=== PATIENT | male | born 1945 | race Caucasian/White ===

== ENCOUNTER 2019-03-22 12:51 | Inpatient (IN) | payer OTHER, BC ==
[2019-03-22 13:47] LABS: Basophils % 0.4 % (0-1.3); Hematocrit 44.2 % (39.6-49.0); MPV 8.8 fL (7.6-11.3); RBC Red Blood Cell Count 4.83 M/uL (4.33-5.43)
[2019-03-22 14:06] LABS: Albumin 3.7 g/dL (3.4-5.0); Bilirubin Direct 0.3 mg/dL (0-0.2); Bilirubin Total 1.1 mg/dL (0.2-1.0); Magnesium 1.6 mg/dL (1.8-2.4); Potassium 3.6 mmol/L (3.5-5.1); Protein, Total 6.6 g/dL (6.4-8.2)
--- NOTE | 2019-03-22 15:20 | RAD REPORT ---
EXAM DESCRIPTION: CTAbdomen Pelvis W Contrast - 03/22/2019 2:53 pm CLINICAL HISTORY: Abdominal pain. ABD PAIN COMPARISON: No comparisons TECHNIQUE: Biphasic CT imaging of the abdomen and pelvis was performed with 100 ml non-ionic IV cont rast. All CT scans are performed using dose optimization technique as appropriate and may include automated exposure control or mA/KV adjustment according to patient size. FINDINGS: The lung bases are emphysematous. The liver demonstrates no focal mass or biliary dilatation. The, pancreas, adrenal glands are normal. Small left renal cysts are present with a tiny stone in the inferior calyx left kidney. Moderate rig ht hydronephrosis and hydroureter is seen without obstructing calculus present. The appendix appears inflamed and thickened measuring up to 12 mm compatible with acute appendicitis. Sigmoid diverticulosis is present without diverticulitis. No bowel obstruction. Infrarenal abdominal aortic aneurysm measuring 4.5 cm is noted with moderate mural thrombus. No evidence of significant l ymphadenopathy. No suspicious bony findings. IMPRESSION: Acute appendicitis.
[2019-03-22] MEDS ORDERED: PIPER/TAZO/NS 3.375gm 3.375 GM/100 ML BAG ONE (16:22)
[2019-03-22] MEDS ORDERED: MORPHINE 2 MG/ML SYR ONE (16:22)
--- NOTE | 2019-03-22 16:43 | EDPHYS ---
Physician Documentation [facility] Name: Jasbir Flores Age: 73 yrs Sex: Male : 1945 Arrival Date: 03/22/2019 Time: 12:54 Bed 17 Private MD: ED Physician Eder Tripp HPI: 03/22 13:05 This 73 yrs old Male presents to ER via EMS with complaints of Abdominal Pain.cp 13:05 Associated signs and symptoms: Pertinent positives: diarrhea yesterday, Pertinent cp negatives: blood in stools, constipation, dysuria, fever, shortness of breath, testicular pain, vomiting. 13:05 The patient presents with abdominal pain in the lower abdomen. Onset: The cp symptoms/episode began/occurred yesterday. Modifying factors: the symptoms are aggravated by pressure. Severity of pain: in the emergency department the pain has improved moderately. Historical: - Allergies: 12:58 No Known Allergies; ph - Home Meds: 12:58 amlodipine 5 mg tab 1 tab once daily [Active]; Advair Diskus Inhl [Active]; ph glycopyrrolate inhalation [Active]; tamsulosin 0.4 mg Oral cp24 1 cap once daily [Active]; rosuvastatin 10 mg Oral tab 1 tab once daily [Active]; - PMHx: 12:58 Emphysema; Hyperlipidemia; Hypertension; ph - Immunization history:: Adult Immunizations up to date. - Social history:: Smoking status: Patient/guardian denies using tobacco. - Ebola Screening: : No symptoms or risks identified at this time. ROS: 13:15 Constitutional: Negative for body aches, chills, fever, poor PO intake. cp 13:15 Eyes: Negative for injury, pain, redness, and discharge. cp 13:15 ENT: Negative for drainage from ear(s), ear pain, sore throat, difficulty swallowing, difficulty handling secretions. 13:15 Cardiovascular: Negative for chest pain, edema, palpitations. 13:15 Respiratory: Negative for cough, shortness of breath, wheezing. 13:15 Abdomen/GI: Positive for abdominal pain, nausea, Negative for vomiting, diarrhea, constipation, black/tarry stool, rectal bleeding. 13:15 Back: Negative for pain at rest, pain with movement, radiated pain. 13:15 : Negative for urinary symptoms, testicular pain 13:15 Skin: Negative for cellulitis, rash. 13:15 Neuro: Negative for altered mental status, dizziness, headache, syncope, weakness. 13:15 All other systems are negative. Exam: 13:20 Constitutional: The patient appears in no acute distress, alert, awake, cp non-diaphoretic, non-toxic, well developed, well nourished. 13:20 Head/Face: Normocephalic, atraumatic. cp 13:20 Eyes: Periorbital structures: appear normal, Conjunctiva: normal, no exudate, no injection, Sclera: no appreciated abnormality, Lids and lashes: appear normal, bilaterally. 13:20 ENT: External ear(s): are unremarkable, Nose: is normal, Mouth: Lips: moist, Oral mucosa: pink and intact, moist, Posterior pharynx: is normal, airway is patent, no erythema, no exudate. 13:20 Chest/axilla: Inspection: normal, Palpation: is normal, no crepitus, no tenderness. 13:20 Cardiovascular: Rate: normal, Rhythm: regular, Edema: is not appreciated, JVD: is not appreciated. 13:20 Respiratory: the patient does not display signs of respiratory distress, Respirations: normal, no use of accessory muscles, no retractions, no splinting, no tachypnea, labored breathing, is not present, Breath sounds: are clear throughout, no decreased breath sounds, no stridor, no wheezing. 13:20 Abdomen/GI: Inspection: distension, that is mild, Bowel sounds: active, all quadrants, Palpation: soft, in all quadrants, moderate abdominal tenderness, in the right lower quadrant, rebound tenderness, is not appreciated, involuntary guarding, is elicited in the right lower quadrant. 13:20 Back: pain, is absent, ROM is normal. 13:20 Skin: cellulitis, is not appreciated, no rash present. 13:20 Neuro: Orientation: to person, place \T\ time. Mentation: is normal, Motor: moves all fours. 16:55 ECG was reviewed by the Attending Physician. cp Vital Signs: 12:56 BP 125 / 70; Pulse 96; Resp 18; Temp 99.9(O); Pulse Ox 93% on R/A; Weight 74.84 kg; ph Height 5 ft. 9 in. (175.26 cm); Pain 0/10; 14:06 BP 122 / 69; Pulse 91; Resp 17; Pulse Ox 99% ; bp 15:40 BP 112 / 54; Pulse 90; Resp 17; Pulse Ox 100% ; bp 16:00 BP 113 / 62; Pulse 86; Resp 16; Pulse Ox 100% ; bp 17:00 BP 109 / 75; Pulse 80; Resp 17; Temp 99.5; Pulse Ox 98% ; bp 12:56 Body Mass Index 24.37 (74.84 kg, 175.26 cm) ph MDM: 12:58 Patient medically screened. cp 13:30 Differential diagnosis: appendicitis, cholecystitis, Cholelithiasis, diverticulitis, cp pancreatitis, Ureterolithiasis, urinary tract infection, colitis. 15:45 Data reviewed: vital signs, nurses notes, lab test result(s), radiologic studies, CT cp scan. 15:45 Counseling: I had a detailed discussion with the patient and/or guardian regarding: the cp historical points, exam findings, and any diagnostic results supporting the discharge/admit diagnosis, lab results, radiology results. 15:47 Physician consultation: Jasbir Pickett MD was called at 15:47, regarding admission, to cp the operating room, patient's condition, left message on voicemail. 16:21 Physician consultation: Jasbir Pickett MD was contacted at 16:21, regarding patient's cp condition, would like admission per Dr. Kaiden Molina. 03/22 12:58 Order name: Basic Metabolic Panel; Complete Time: 15:33 cp 03/22 15:38 Interpretation: Normal except: GFR 68. 03/22 12:58 Order name: CBC with Diff; Complete Time: 15:33 cp 03/22 15:39 Interpretation: Normal except: WBC 13.8; JJ% 83.5; LYM% 7.0; NEUT A 11.5. 03/22 12:58 Order name: Creatinine for Radiology; Complete Time: 15:33 cp 03/22 12:58 Order name: Hepatic Function; Complete Time: 15:33 cp 03/22 15:39 Interpretation: Normal except: AST 11; BILIT 1.1; BILID 0.3. cp 03/22 12:58 Order name: Lipase; Complete Time: 15:33 cp 03/22 12:58 Order name: Urine Microscopic Only cp 03/22 12:58 Order name: Magnesium; Complete Time: 15:33 03/22 16:32 Order name: PT-INR 03/22 16:32 Order name: Ptt, Activated 03/22 17:22 Order name: Basic Metabolic Panel [facility]SC 03/22 17:22 Order name: Basic Metabolic Panel [facility] 03/22 17:22 Order name: CBC with Automated Diff [facility]SC 03/22 17:22 Order name: CBC with Automated Diff [facility]SC 03/22 17:22 Order name: Lipase [facility]SC 03/22 12:58 Order name: IV Saline Lock; Complete Time: 13:17 03/22 12:58 Order name: Labs collected and sent; Complete Time: 13:17 03/22 12:58 Order name: CT Abd/Pelvis - PO and IV Contrast; Complete Time: 15:33 03/22 15:33 Interpretation: Report reviewed. 03/22 15:42 Order name: NPO; Complete Time: 15:53 03/22 16:32 Order name: EKG; Complete Time: 16:33 03/22 16:32 Order name: CXR XRAY 03/22 17:15 Order name: CONS Physician Consult [facility] 03/22 17:22 Order name: NPO [facility]SC 03/22 17:22 Order name: Lipase [facility]SC 03/22 17:22 Order name: Liver (Hepatic) Function [facility]SC 03/22 17:22 Order name: Liver (Hepatic) Function [facility] 03/22 16:32 Order name: EKG - Nurse/Tech; Complete Time: 16:36 cp EC:55 Rate is 79 beats/min. Rhythm is regular. VT interval is normal. QRS interval is normal. cp QT interval is normal. T waves are Inverted in leads I, II, III, aVL, aVF, V5, V6. Interpreted by me. Reviewed by me. Administered Medications: 13:20 Drug: NS 0.9% 1000 ml Route: IV; Rate: 100 ml/hr; Site: left antecubital; bp 17:25 Follow up: IV Status: Infusion continued upon admission; IV Intake: 400ml bp 16:05 Drug: Zosyn 3.375 grams Route: IVPB; Infused Over: 60 mins; Site: left antecubital; bp 17:24 Follow up: IV Status: Completed infusion; IV Intake: 100ml bp 16:05 Drug: morphine 2 mg Route: IVP; Site: left antecubital; bp 17:22 Follow up: Response: Pain is decreased bp 17:05 Drug: Magnesium Sulfate 1 grams Route: IVPB; Infused Over: 1 hrs; Site: left bp antecubital; 17:23 Follow up: IV Status: Infusion continued upon admission bp Disposition: 03/22/19 16:42 Hospitalization ordered by Kaiden Molina for Observation. Preliminary diagnosis is Acute appendicitis. - Bed requested for Telemetry/MedSurg (observation). - Status is Observation. bp - Condition is Stable. - Problem is new. - Symptoms have improved. UTI on Admission? No Addendum: 03/27/2019 09:44 Co-signature as Attending Physician, Eder Tripp MD I agree with the assessment and k dr plan of care. Signatures: Dispatcher [employer] Albina Marrero RN RN dw Eder Tripp MD MD [facility] Kassy Laguna RN RN Arsh Chun PA PA Caesar Cole RN RN bp Corrections: (The following items were deleted from the chart) 03/22 17:21 16:42 Hospitalization Ordered by Kaiden Molina for Observation. Preliminary diagnosis dw is Acute appendicitis. Bed requested for Telemetry/MedSurg (observation). Status is Observation. Condition is Stable. Problem is new. Symptoms have improved. UTI on Admission? No. cp 17:31 17:21 03/22/2019 16:42 Hospitalization Ordered by Kaiden Molina for Observation. bp Preliminary diagnosis is Acute appendicitis. Bed requested for Telemetry/MedSurg (observation). Status is Observation. Condition is Stable. Problem is new. Symptoms have improved. UTI on Admission? No. dw 03/23 16:59 03/21 13:05 This 73 yrs old Male presents to ER via EMS with complaints of cp Abdominal Pain. cp 03/23 16:59 03/21 13:05 The patient presents with abdominal pain in the lower abdomen, cp cp 03/23 16:59 03/21 13:05 Onset: The symptoms/episode began/occurred yesterday, cp cp
--- NOTE | 2019-03-22 16:43 | ER ---
Nurse's Notes [facility] Name: Jasbir Flores Age: 73 yrs Sex: Male : 1945 Arrival Date: 03/22/2019 Time: 12:54 Bed 17 Private MD: Diagnosis: Acute appendicitis Presentation: 03/22 12:54 Presenting complaint: EMS states: Abdominal pain and diarrhea since yesterday, also c/o ph fever TMAX 102, denies N/V, VSS, IV established, received 400 mL NS, 75 mcg Fentanyl IVP and 4 mg Zofran IVP. Transition of care: patient was not received from another setting of care. Transition of care: patient was not received from another setting of care. Onset of symptoms was March 22, 2019. Risk Assessment: Do you want to hurt yourself or someone else? Patient reports no desire to harm self or others. Initial Sepsis Screen: Does the patient meet any 2 criteria? HR > 90 bpm. Does the patient have a suspected source of infection? Yes: Acute abdominal pain. Care prior to arrival: None. 12:54 Method Of Arrival: EMS: [facility] 12:54 Acuity: MONICA 3 ph Triage Assessment: 13:00 General: Appears in no apparent distress. comfortable, Behavior is cooperative, bp appropriate for age, anxious. Pain: Complains of pain in umbilical area. EENT: No deficits noted. Neuro: No deficits noted. Cardiovascular: No deficits noted. Respiratory: No deficits noted. GI: Reports lower abdominal pain, diarrhea, nausea. : No signs and/or symptoms were reported regarding the genitourinary system. Derm: No deficits noted. Musculoskeletal: No deficits noted. Historical: - Allergies: 12:58 No Known Allergies; ph - Home Meds: 12:58 amlodipine 5 mg tab 1 tab once daily [Active]; Advair Diskus Inhl [Active]; ph glycopyrrolate inhalation [Active]; tamsulosin 0.4 mg Oral cp24 1 cap once daily [Active]; rosuvastatin 10 mg Oral tab 1 tab once daily [Active]; - PMHx: 12:58 Emphysema; Hyperlipidemia; Hypertension; ph - Immunization history:: Adult Immunizations up to date. - Social history:: Smoking status: Patient/guardian denies using tobacco. - Ebola Screening: : No symptoms or risks identified at this time. Screenin:20 Abuse screen: Denies threats or abuse. Denies injuries from another. Nutritional bp screening: No deficits noted. Tuberculosis screening: No symptoms or risk factors identified. Fall Risk None identified. Assessment: 13:00 General: SEE TRIAGE NOTE. bp 13:32 Reassessment: PO CONTRAST COMPLETED, CT NOTIFIED. bp 14:06 Reassessment: CT PENDING. GI: Bowel sounds present X 4 quads. Abd is soft X 4 quads. bp 15:41 Reassessment: PT RETURNED FROM CT. VS STABLE ON MONITOR. bp 15:53 Reassessment: PT NOW NPO, PER PROVIDER +APPY. bp 17:17 Reassessment: SURGERY C/S AT B/S. bp Vital Signs: 12:56 BP 125 / 70; Pulse 96; Resp 18; Temp 99.9(O); Pulse Ox 93% on R/A; Weight 74.84 kg; ph Height 5 ft. 9 in. (175.26 cm); Pain 0/10; 14:06 BP 122 / 69; Pulse 91; Resp 17; Pulse Ox 99% ; bp 15:40 BP 112 / 54; Pulse 90; Resp 17; Pulse Ox 100% ; bp 16:00 BP 113 / 62; Pulse 86; Resp 16; Pulse Ox 100% ; bp 17:00 BP 109 / 75; Pulse 80; Resp 17; Temp 99.5; Pulse Ox 98% ; bp 12:56 Body Mass Index 24.37 (74.84 kg, 175.26 cm) ph ED Course: 12:54 Patient arrived in ED. ph 12:56 Triage completed. ph 12:56 Arsh Chun PA is PHCP. cp 12:56 Eder Tripp MD is Attending Physician. cp 13:00 Arm band placed on. bp 13:00 Maintain EMS IV. Dressing intact. Good blood return noted. Site clean \T\ dry. Gauge \T\ bp site: 20 GAUGE LEFT AC. 13:10 Caesar Bo, FLOR is Primary Nurse. bp 13:20 Patient has correct armband on for positive identification. Bed in low position. Call bp light in reach. Side rails up X2. Adult w/ patient. 14:03 CT Abd/Pelvis - PO and IV Contrast In Process Unspecified. EDMS 16:41 Kaiden Molina is Hospitalizing Provider. cp 16:52 CXR XRAY In Process Unspecified. EDMS 16:56 EKG done, by medical research tech. reviewed by Arsh BARRIENTOS. 3 17:25 No provider procedures requiring assistance completed. Patient admitted, IV remains in bp place. Administered Medications: 13:20 Drug: NS 0.9% 1000 ml Route: IV; Rate: 100 ml/hr; Site: left antecubital; bp 17:25 Follow up: IV Status: Infusion continued upon admission; IV Intake: 400ml bp 16:05 Drug: Zosyn 3.375 grams Route: IVPB; Infused Over: 60 mins; Site: left antecubital; bp 17:24 Follow up: IV Status: Completed infusion; IV Intake: 100ml bp 16:05 Drug: morphine 2 mg Route: IVP; Site: left antecubital; bp 17:22 Follow up: Response: Pain is decreased bp 17:05 Drug: Magnesium Sulfate 1 grams Route: IVPB; Infused Over: 1 hrs; Site: left bp antecubital; 17:23 Follow up: IV Status: Infusion continued upon admission bp Intake: 17:24 IV: 100ml; Total: 100ml. bp 17:25 IV: 400ml; Total: 500ml. bp Outcome: 16:42 Decision to Hospitalize by Provider. cp 17:25 Admitted to OR accompanied by nurse, family with patient, via stretcher, room OR, with bp chart. 17:25 Condition: stable 17:25 Instructed on the need for admit. 17:31 Patient left the ED. bp Signatures: Dispatcher [employer] EDND Kassy Laguna, RN RN Arsh Cardozo PA PA cp Caesar Bo, RN RN bp Elsy Keith 3
--- NOTE | 2019-03-22 17:00 | RAD REPORT ---
EXAM DESCRIPTION: RAD - Chest Single View - 03/22/2019 4:44 pm CLINICAL HISTORY: pre-op Chest pain. COMPARISON: <Comparisons> FINDINGS: Portable technique limits examination quality. The lungs are emphysematous but grossly clear. The heart is normal in size. No displaced fractures. IMPRESSION: Prominent COPD.
[2019-03-22] MEDS ORDERED: ACETAMINOPHEN 500 MG TAB PO PRN (17:14)
[2019-03-22] MEDS ORDERED: ONDANSETRON 4 MG/2 ML VIAL IV PRN (17:14)
[2019-03-22] MEDS ORDERED: MORPHINE 4 MG/ML SYR IV PRN ×2 (17:14→20:16)
[2019-03-22] MEDS ORDERED: MAGNESIUM SULFATE 1 gm IVPB 1 GM/100 ML BAG IV ONE (17:19)
[2019-03-22] MEDS ORDERED: FENTANYL CITR 100 MCG/2 ML ONE (17:21)
[2019-03-22] MEDS ORDERED: PROPOFOL 200 MG/20 ML VIAL IV ONE (17:21)
[2019-03-22] MEDS ORDERED: NEOSTIGMINE 1 MG/ML -10 ML VIAL ONE (17:21)
[2019-03-22] MEDS ORDERED: GLYCOPYRROLATE 0.2 MG/ML SYR ONE ×2 (17:21)
[2019-03-22] MEDS ORDERED: MIDAZOLAM HCL 2 MG/2 ML INJ ONE (17:21)
[2019-03-22] MEDS ORDERED: ONDANSETRON 4 MG/2 ML VIAL ONE (17:21)
[2019-03-22] MEDS ORDERED: ROCURONIUM 50 MG/5 ML VIAL IV ONE (17:22)
[2019-03-22] MEDS ORDERED: MORPHINE 10 MG/ML VIAL ONE (17:22)
[2019-03-22] MEDS ORDERED: KETOROLAC 30 MG/ML INJ ONE (17:22)
[2019-03-22] MEDS ORDERED: LIDOCAINE 1% MPF 5 ML VIAL ONE (17:22)
[2019-03-22] MEDS ORDERED: Ringers Lactate 1,000 ML IV ONE ×3 (17:35→20:05)
--- NOTE | 2019-03-22 17:40 | P.HP ---
Date of Service: 03/22/19 PC: This 73-year-old male presented emergency room with severe right lower quadrant abdominal pain for diagnosis and treatment. HPC: Patient had abdominal pain last night. Pain intensified the migrated to the right lower quadrant. He could no longer stand it came to the emergency room for evaluation treatment. PMH: Emphysema, hypertension, enlarged prostate PSHx: No prior abdominal surgeries SOC: Denies any allergies SYS REVIEW: No cough, wheeze, shortness of breath. No chest pain or palpitations. O/E awake alert uncomfortable HEENT: Not jaundiced Chest: Chest movement equal bilaterally ABD: Tender with guarding in the right lower quadrant LOCO: Intact DATA: Elevated white send count, CT scan supports clinical diagnosis of acute abdomen with appendicitis also has a aortic aneurysm which we will follow up with as outpatient IMPRESSION: Acute abdomen with appendicitis PLAN: I will take in operating room for laparoscopic possible open appendectomy. The risks of this procedure have been discussed. The possibility of bleeding, infection, injury to bowel and surrounding structures were outlined. The possible need for an open and/or further surgeries and procedures was described. Abscess formation and wound problems were explained. He understands and wants us to proceed. SYS REVIEW: O/E HEENT: Chest: ABD: LOCO: DATA: IMPRESSION: PLAN:
[2019-03-22 17:58] LABS: Protime INR 1.03
[2019-03-22] MEDS ORDERED: Phenylephrine HCl 10 MG/ML 1 ML VIAL ONE (18:03)
[2019-03-22] MEDS: LABETALOL HCL 100 MG/20 ML ONE ×2 (18:55→18:58)
--- NOTE | 2019-03-22 18:59 | P.OP ---
Preoperative diagnosis: Acute abdomen Postoperative diagnosis: Gangrenous appendicitis Primary procedure: Laparoscopic appy Anesthesia: General Estimated blood loss: S than 10 cc Specimen: 1 specimen sent for histopathology (appendix) Operative Technique: The patient was brought to the operating room, placed supine on the table. After the induction of adequate general endotracheal anesthesia, the area of the abdomen was prepped with a DuraPrep solution, and the patient was draped in the usual aseptic manner. A subumbilical incision was made. This was brought down through the skin and subcutaneous tissue. The Visiport was cavity and created pneumoperitoneum to approximately 12 mm of mercury. Under direct vision a 5 mm trocar was placed in the lower midline and another 5 mm in the right upper quadrant. The patient was then positioned in Trendelenburg and rolled to the left side. We were able to visualize right lower quadrant. PC marked inflammatory response against the right lateral wall of the abdomen just at the brim of the pelvis. The small bowel was gently teased away from this area. We saw an inflammatory mass consistent with a gangrenous appendix in that area. The huge is were gently taken down. The appendix was now isolated. We could see that the base of the appendix was relatively normal. This was dissected up off to its junction with the cecum. An opening was made into the mesentery of the appendix. The appendix was then gently dissected from the surrounding structures. The junction of the appendix with the with the cecum was identified. An opening was made in the mesentery of the appendix. The 10 mm trocar was now converted to a 12 with the camera moved to the right upper port with a 5 mm view. The linear Stapler was introduced into the peritoneal cavity. It was placed across the base of the appendix and fired. A vascular reload was then placed into the Stapler. The mesentery of the appendix was then taken down. The appendix having been was placed into an Endo-Catch, brought out through the umbilical port site. Attention was turned back towards the right lower quadrant. The area was gently irrigated with the saline solution. The effluent was aspirated. 0.25% Marcaine was aerosolize into the right lower quadrant. Attention was turned towards the umbilical trocar. Using the endo- close absorbable sutures were placed to close the defect. The patient was now returned to the neutral position on the OR table. The pneumoperitoneum was collapsed, the umbilical sutures tied, and yeimi applied to the skin. At the end of the procedure the patient was in stable condition and sent to the recovery room. Needle sponge and instrument count were correct. 1 specimen was sent for histopathology. Sterile dressings had been applied. Complications: None Transferred to: Recovery Room Condition: Good
[2019-03-22] MEDS ORDERED: FLUMAZENIL 0.1 MG/ML (5 mL VIAL) IV ONE (19:08)
[2019-03-22] MEDS ORDERED: IPRATROPIUM BROM 0.5MG/2.5ML ONE (19:13)
[2019-03-22] MEDS ORDERED: ALBUTEROL 2.5 MG/3 ML NEB SOL ONE (19:13)
[2019-03-22] MEDS: ALBUTEROL 2.5 MG/3 ML NEB SOL NEB SCH (19:15)
[2019-03-22] MEDS: IPRATROPIUM BROM 0.5MG/2.5ML NEB SCH (19:15)
--- NOTE | 2019-03-22 19:23 | P.HP ---
Certification for Inpatient With expected LOS: >2 Midnights Patient will require the following post-hospital care: None Practitioner: I am a practitioner with admitting privileges, knowledge of patient current condition, hospital course, and medical plan of care. Services: Services provided to patient in accordance with Admission requirements found in Title 42 Section 412.3 of the Code of Federal Regulations Patient History Date of Service: 03/22/19 Reason for admission: Abdominal pain History of Present Illness: 73-year-old man with a history of COPD, hypertension, history of BPH, history bladder cancer status post surgery and chemotherapy presented to the emergency department with a complaint right lower quadrant abdominal pain and diarrhea since yesterday. He also reported fever up to 101. Mild leukocytosis was noted in his blood work in the ED. CT abdomen and pelvis done reported acute appendicitis and 4.5 cm abdominal aortic aneurysm. General surgery was called who evaluated the patient and send the patient to the OR for emergent appendectomy. Patient was seen in the recovery room after the surgery. He was still obtunded and could not provide any history. Patient noted to have prolonged expiratory phase to his breathing and was on breathing treatment I saw him. Patient noted to have gangrenous appendicitis during the surgery. Allergies No Known Allergies Allergy (Verified 07/30/17 16:31) Home medications list reviewed: Yes Home Medications: Amlodipine Besylate 5 mg PO DAILY 07/30/17 Fluticasone/Salmeterol [Advair Hfa 115-21 Mcg Inhaler] 1 puff IH BID 07/30/17 Rosuvastatin [Crestor*] 10 mg PO DAILY 07/30/17 Tamsulosin HCl 0.4 mg PO DAILY 07/30/17 Doxycycline Hyclate 100 mg PO BID #14 capsule 08/01/17 Oseltamivir [Tamiflu*] 75 mg PO BID #6 cap 08/01/17 predniSONE [Deltasone*] 10 mg PO BID #20 tab 08/01/17 - Past Medical/Surgical History Diabetic: No -: had heart cath 10 yrs ago. no stent placed -: COPD/ emphasemia -: 02/2016 bladder cancer. 1 year of chemo -: 02/24 Ca tumor removed from bladder - Family History Father -: Cancer Sister -: Heart disease, Lung disease - Social History Alcohol use: Yes CD- Drugs: No Caffeine use: Yes Review of Systems is unable to be obtained (Due to altered mental status.) Physical Examination - Vital Signs Temperature: 98.1 F Blood Pressure: 184/79 Pulse: 89 Respirations: 16 - Physical Exam General: Other (Obtunded.) HEENT: Normocephalic, PERRLA Neck: Supple, JVD not distended Respiratory: Diminished (No crackles, scattered wheezes.) Cardiovascular: No edema, Regular rate/rhythm, Normal S1 S2, No murmurs Gastrointestinal: Non-distended, No ascites Musculoskeletal: No clubbing, No swelling, No erythema Integumentary: No rashes Neurological: Other (Unable to examine due to altered mental status. He moves all extremities spontaneously.) - Studies Laboratory Data (last 24 hrs) 03/22/19 13:30: Creatinine 1.10 03/22/19 13:30: WBC 13.8 H, Hgb 14.9, Hct 44.2, Plt Count 195 03/22/19 13:30: Sodium 140, Potassium 3.6, BUN 16, Creatinine 1.06, Glucose 96, Magnesium 1.6 L, Total Bilirubin 1.1 H, AST 11 L, ALT 23, Alkaline Phosphatase 78, Lipase 69 L Imagings Data: The liver demonstrates no focal mass or biliary dilatation. The, pancreas, adrenal glands are normal. Small left renal cysts are present with a tiny stone in the inferior calyx left kidney. Moderate right hydronephrosis and hydroureter is seen without obstructing calculus present. The appendix appears inflamed and thickened measuring up to 12 mm compatible with acute appendicitis. Sigmoid diverticulosis is present without diverticulitis. No bowel obstruction. Infrarenal abdominal aortic aneurysm measuring 4.5 cm is noted with moderate mural thrombus. No evidence of significant lymphadenopathy. No suspicious bony findings. IMPRESSION: Acute appendicitis. Assessment and Plan - Problems (Diagnosis) (1) Acute appendicitis Current Visit: Yes Status: Acute Plan: Further management per surgery. Continue IV Zosyn. Pain management as needed. Monitor CBC to follow leukocytosis. (2) Benign prostatic hyperplasia Onset Date: 08/02/17 Current Visit: Yes Status: Acute Plan: Pierson catheter. Voiding trial when more awake. (3) COPD exacerbation Onset Date: 08/02/17 Current Visit: Yes Status: Acute Plan: Obtain arterial blood gas Scheduled Duoneb, albuterol p.r.n.. IV steroid x1 dose and monitor. Antibiotics as above. BiPAP p.r.n. (4) Essential hypertension Onset Date: 08/02/17 Current Visit: No Status: Acute Plan: Hydralazine IV p.r.n. for elevated blood pressure. Plan to discharge in: 48 Hours - Advance Directives Does patient have a Living Will: No Does patient have a Durable POA for Healthcare: No
[2019-03-22] MEDS ORDERED: METHYLPREDNISOLONE 125 MG INJ IV ONE (19:32)
[2019-03-22 21:02] LABS: Arterial Blood Carboxyhemoglob 0.7 % (0-1.5); Blood Gas Oxyhemoglobin 96.6 % (94-97); Blood O2 Saturation 98.2 % (92-98.5)
[2019-03-22] MEDS: NA CHLORIDE 0.9% 1,000 ML IV SCH (21:37)
[2019-03-22] MEDS ORDERED: PIPERACIL/TAZO 3.375 GM VIAL IV ONE (23:57)
[2019-03-22] MEDS ORDERED: NA CHLORIDE 0.9% 100 ML ONE (23:58)
[2019-03-23] MEDS: PIPER/TAZO/NS 3.375gm 3.375 GM/100 ML BAG IVPB SCH ×3 (00:31→16:10)
[2019-03-23 01:04] LABS: Urine Appearance CLOUDY; Urine Bilirubin NEGATIVE (NEG); Urine Blood 1+ (NEG); Urine Color YELLOW; Urine Glucose NEGATIVE (NEG); Urine Protein NEGATIVE (NEG); Urine Urobilinogen 0.2 mg/dL (0.2-1.0)
[2019-03-23 02:03] LABS: Urine Bacteria <20 /HPF (NONE SEEN); Urine Culture Reflex Order REFLEXED; Urine RBC <5 /HPF (NONE SEEN)
[2019-03-23] MEDS ORDERED: TAMSULOSIN 0.4 MG SR CAP PO SCH ×2 (02:10→21:00)
[2019-03-23] MEDS: IPRATROPIUM BROM 0.5MG/2.5ML NEB SCH ×4 (04:10→20:00)
[2019-03-23] MEDS: ALBUTEROL 2.5 MG/3 ML NEB SOL NEB SCH ×5 (04:10→20:00)
[2019-03-23 05:17] VITALS: BMI 25.4
[2019-03-23 06:24] LABS: Basophils % 0.4 % (0-1.3); Hematocrit 37.6 % (39.6-49.0); MPV 9.1 fL (7.6-11.3); RBC Red Blood Cell Count 4.11 M/uL (4.33-5.43)
[2019-03-23 06:33] LABS: Albumin 3.1 g/dL (3.4-5.0); Bilirubin Direct 0.4 mg/dL (0-0.2); Bilirubin Total 1.3 mg/dL (0.2-1.0); Potassium 3.9 mmol/L (3.5-5.1); Protein, Total 5.7 g/dL (6.4-8.2)
--- NOTE | 2019-03-23 11:10 | EKG ---
Test Date: 2019-03-22 Test Time: 16:51:56 Ladder Operator: PARADISE MEASUREMENT RESULTS: Intervals: Rate: 79 UT: 154 QRSD: 84 QT: 360 QTc: 412 [place]: P: 76 UT: 154 QRS: 44 T: 173 INTERPRETIVE STATEMENTS: Normal sinus rhythm T wave abnormality, consider inferolateral ischemia Abnormal ECG Compared to ECG 07/30/2017 09:03:21 T-wave abnormality now present Possible ischemia now present Sinus tachycardia no longer present Right-axis deviation no longer present Myocardial infarct finding no longer present Electronically Signed On 03-23-19 11:06:26 CDT by Austin Guzman
[2019-03-23] MEDS: HYDROCODONE/APAP 7.5/325 MG TAB PO PRN ×2 (11:18→15:15)
[2019-03-23] MEDS: NA CHLORIDE 0.9% 1,000 ML IV SCH (11:20)
--- NOTE | 2019-03-23 13:51 | P.PN ---
Date of Service: 03/23/19 S: Patient is states he feels much better, abdominal pain is almost resolved. Not requiring much oral medication. Says his breathing is much improved. O: Vital signs remain stable, sats are good on nasal O2. A: Surgically stable P: Patient may be transferred from the ICU from a surgical standpoint in view. Will advance patient's diet. From a surgical standpoint could possibly be discharged in the a.m..
[2019-03-23] MEDS: TAMSULOSIN 0.4 MG SR CAP PO SCH (16:10)
--- NOTE | 2019-03-23 17:15 | P.PN ---
Subjective Date of Service: 03/23/19 Chief Complaint: Abdominal pain Patient developed CO2 retention in the immediate postop period yesterdayand required BiPAP briefly. Patient is much better today. He is tolerating room air. No wheezing. He denies any abdominal pain. Review of Systems 10-point ROS is otherwise unremarkable Physical Examination - Vital Signs Temperature: 98.3 F Blood Pressure: 129/67 Pulse: 66 Respirations: 14 Pulse Ox (%): 99 - Physical Exam General: Alert, In no apparent distress, Oriented x3 HEENT: Mucous membr. moist/pink Neck: Supple, JVD not distended Respiratory: Clear to auscultation bilaterally, Normal air movement Cardiovascular: No edema, Regular rate/rhythm, Normal S1 S2, No murmurs Gastrointestinal: Normal bowel sounds Musculoskeletal: No swelling, No erythema Integumentary: No rashes Neurological: Normal strength at 5/5 x4 extr - Studies Laboratory Data (last 24 hrs) 03/23/19 05:54: Sodium 141, Potassium 3.9, BUN 16, Creatinine 1.02, Glucose 92, Total Bilirubin 1.3 H, AST 9 L, ALT 21, Alkaline Phosphatase 65, Lipase 62 L 03/23/19 05:54: WBC 10.3 D, Hgb 13.0 L, Hct 37.6 L, Plt Count 189 03/22/19 17:40: PT 12.1, INR 1.03, APTT 36.5 Assessment And Plan - Current Problems (Diagnosis) (1) Acute appendicitis Current Visit: Yes Status: Acute Plan: Leukocytosis resolved Further management per surgery. Advanced diet as tolerated perc surgery. Continue IV Zosyn. Pain management as needed. (2) Benign prostatic hyperplasia Onset Date: 08/02/17 Current Visit: Yes Status: Acute Plan: Pierson catheter. Voiding trial. (3) COPD exacerbation Onset Date: 08/02/17 Current Visit: Yes Status: Acute Plan: Significantly improved. Scheduled Ipratropium and albuterol. Antibiotics as above. (4) Essential hypertension Onset Date: 08/02/17 Current Visit: No Status: Acute Plan: Hydralazine IV p.r.n. for elevated blood pressure.
[2019-03-23] MEDS ORDERED: TAMSULOSIN 0.4 MG SR CAP PO ONE (20:04)
[2019-03-24] MEDS: PIPER/TAZO/NS 3.375gm 3.375 GM/100 ML BAG IVPB SCH ×3 (00:27→16:48)
[2019-03-24] MEDS: HYDROCODONE/APAP 7.5/325 MG TAB PO PRN ×4 (00:29→23:23)
[2019-03-24] MEDS: ALBUTEROL 2.5 MG/3 ML NEB SOL NEB SCH ×4 (02:00→20:00)
[2019-03-24] MEDS: IPRATROPIUM BROM 0.5MG/2.5ML NEB SCH ×4 (02:00→20:00)
[2019-03-24 06:15] LABS: Basophils % 0.5 % (0-1.3); Hematocrit 35.8 % (39.6-49.0); Lymphocytes % 14.8 % (15.3-44.8); MPV 8.9 fL (7.6-11.3); RBC Red Blood Cell Count 3.86 M/uL (4.33-5.43)
[2019-03-24 06:31] LABS: Potassium 3.6 mmol/L (3.5-5.1)
[2019-03-24] MEDS: NA CHLORIDE 0.9% 1,000 ML IV SCH ×2 (08:27→14:00)
--- NOTE | 2019-03-24 15:48 | P.PN ---
Subjective Date of Service: 03/24/19 Chief Complaint: Abdominal pain Patient denies any complaints today. Has tolerated diet advancement. He is maintained on 2 L of oxygen by nasal cannula. He denies shortness of breath or wheeze. He has been ambulatory. Review of Systems 10-point ROS is otherwise unremarkable Physical Examination - Vital Signs Temperature: 98.7 F Blood Pressure: 142/71 Pulse: 75 Respirations: 16 Pulse Ox (%): 98 - Physical Exam General: Alert, In no apparent distress, Oriented x3 HEENT: Mucous membr. moist/pink Neck: Supple Respiratory: Clear to auscultation bilaterally, Diminished Cardiovascular: No edema, Regular rate/rhythm, Normal S1 S2 Gastrointestinal: Normal bowel sounds, Soft and benign Musculoskeletal: No swelling, No erythema Integumentary: No rashes Neurological: Normal strength at 5/5 x4 extr Assessment And Plan - Current Problems (Diagnosis) (1) Acute appendicitis Current Visit: Yes Status: Acute Plan: Dr. Pickett plans remove the JAIME drain todayy, keep him another day on IV antibiotics and discharge tomorrow., Diet as tolerated. Increase activity Continue IV Zosyn. Pain management as needed. (2) Benign prostatic hyperplasia Onset Date: 08/02/17 Current Visit: Yes Status: Acute Plan: Pierson catheter. Voiding trial. (3) COPD exacerbation Onset Date: 08/02/17 Current Visit: Yes Status: Acute Plan: Significantly improved. Now on baseline Continue Ipratropium and albuterol. Antibiotics as above. Oxygen p.r.n. (4) Essential hypertension Onset Date: 08/02/17 Current Visit: No Status: Acute Plan: Hydralazine IV p.r.n. for elevated blood pressure. Discharge Plan: Home
[2019-03-24] MEDS: TAMSULOSIN 0.4 MG SR CAP PO SCH (16:48)
[2019-03-24] MEDS ORDERED: NA CHLORIDE 0.9% 1,000 ML IV SCH (18:00)
[2019-03-25] MEDS: PIPER/TAZO/NS 3.375gm 3.375 GM/100 ML BAG IVPB SCH ×2 (00:41→08:07)
[2019-03-25] MEDS: IPRATROPIUM BROM 0.5MG/2.5ML NEB SCH ×2 (02:00→09:25)
[2019-03-25] MEDS: ALBUTEROL 2.5 MG/3 ML NEB SOL NEB SCH ×2 (02:00→09:25)
[2019-03-25] MEDS: HYDROCODONE/APAP 7.5/325 MG TAB PO PRN (08:07)
[2019-03-25 11:06] VITALS: O2SAT 95
--- NOTE | 2019-03-25 11:57 | P.DS ---
Admission Date: 03/23/19 Discharge Date: 03/25/19 Disposition: ROUTINE DISCHARGE Discharge Condition: GOOD Reason for Admission: Abdominal pain Consultations: General surgery-Dr. Pickett Procedures: Laparascopic appendectomy - Problems (1) Acute appendicitis Status: Acute (2) Benign prostatic hyperplasia Onset Date: 08/02/17 Status: Acute (3) COPD exacerbation Onset Date: 08/02/17 Status: Acute (4) Essential hypertension Onset Date: 08/02/17 Status: Acute (5) Acute and chronic respiratory failure with hypoxia Status: Acute Brief History of Present Illness: 73-year-old man with a history of COPD, hypertension, history of BPH, history bladder cancer status post surgery and chemotherapy presented to the emergency department with a complaint right lower quadrant abdominal pain and diarrhea since yesterday. He also reported fever up to 101. Mild leukocytosis was noted in his blood work in the ED. CT abdomen and pelvis done reported acute appendicitis and 4.5 cm abdominal aortic aneurysm. General surgery was called who evaluated the patient and send the patient to the OR for emergent appendectomy. Patient was seen in the recovery room after the surgery. He was still obtunded and could not provide any history. Patient noted to have prolonged expiratory phase to his breathing and was on breathing treatment I saw him. Patient noted to have gangrenous appendicitis during the surgery. Hospital Course: Patient admitted to the ICU due to acute respiratory failure with hypoxia and hypercapnia. He was given bronchodilator treatment, treated with broad- spectrum antibiotics-Levaquin and Flagyl. CBC demonstrated severe leukocytosis which resolved with treatment. Patient clinically improved. JAIME drain left in place during surgery was removed, he tolerated diet advanced and also ambulated without difficulty. He was short of breath with exertion. He has chronic respiratory failure and uses 2 L of oxygen by nasal cannula during sleep. He has been told to use oxygen during exertion/ambulation. He is discharged with oral ciprofloxacin and Flagyl to complete 10 days of antibiotic treatment. Vital Signs/Physical Exam: Temp Pulse Resp BP Pulse Ox 98.0 F 64 19 165/78 H 96 03/25/19 08:00 03/25/19 08:00 03/25/19 08:07 03/25/19 08:00 03/25/19 08:07 General: Alert, In no apparent distress, Oriented x3 HEENT: Mucous membr. moist/pink Neck: Supple, JVD not distended Respiratory: Clear to auscultation bilaterally, Normal air movement Cardiovascular: No edema, Regular rate/rhythm, Normal S1 S2 Gastrointestinal: Normal bowel sounds, Soft and benign Musculoskeletal: No swelling, No erythema Integumentary: No rashes Neurological: Normal strength at 5/5 x4 extr Laboratory Data at Discharge: WBC 6.8 K/uL (4.3-10.9) D 03/24/19 05:49 Hgb 12.2 g/dL (13.6-17.9) L 03/24/19 05:49 Hct 35.8 % (39.6-49.0) L 03/24/19 05:49 Plt Count 175 K/uL (152-406) 03/24/19 05:49 PT 12.1 SECONDS (9.5-12.5) 03/22/19 17:40 INR 1.03 03/22/19 17:40 APTT 36.5 SECONDS (24.3-36.9) 03/22/19 17:40 Sodium 144 mmol/L (136-145) 03/24/19 05:49 Potassium 3.6 mmol/L (3.5-5.1) 03/24/19 05:49 BUN 9 mg/dL (7-18) 03/24/19 05:49 Creatinine 0.85 mg/dL (0.55-1.3) 03/24/19 05:49 Glucose 85 mg/dL (74-106) 03/24/19 05:49 Magnesium 1.6 mg/dL (1.8-2.4) L 03/22/19 13:30 Total Bilirubin 1.3 mg/dL (0.2-1.0) H 03/23/19 05:54 AST 9 U/L (15-37) L 03/23/19 05:54 ALT 21 U/L (12-78) 03/23/19 05:54 Alkaline Phosphatase 65 U/L (45-117) 03/23/19 05:54 Lipase 62 U/L (73-393) L 03/23/19 05:54 Home Medications: Amlodipine Besylate 5 mg PO DAILY 07/30/17 Rosuvastatin [Crestor*] 10 mg PO DAILY 07/30/17 Tamsulosin HCl 0.4 mg PO DAILY 01/19/18 predniSONE [Deltasone*] 10 mg PO BID #20 tab 08/01/17 Albuterol Sulfate [Proair Hfa] 8.5 gm IH BID 03/22/19 Ciprofloxacin HCl [Cipro 500 MG Tablet] 500 mg PO BID 7 Days #14 tab 03/25/19 Tiotropium [place] [Spiriva Respimat] 4 gm IH DAILY 30 Days #30 mist.inhal 03/25 Tramadol HCl [Ultram] 50 mg PO Q6H PRN #30 tablet 03/25/19 metroNIDAZOLE [Flagyl] 500 mg PO Q8H 7 Days #21 tablet 03/25/19 New Medications: Ciprofloxacin HCl [Cipro 500 MG Tablet] 500 mg PO BID 7 Days #14 tab metroNIDAZOLE [Flagyl] 500 mg PO Q8H 7 Days #21 tablet Tiotropium [place] [Spiriva Respimat] 4 gm IH DAILY 30 Days #30 mist.inhal Tramadol HCl [Ultram] 50 mg PO Q6H PRN #30 tablet PRN Reason: Pain Scale 5-7 (Moderate) Diet: AHA Activity: Ad john Followup: Jasbir Pickett MD [ACTIVE - CAN ADMIT] -
--- NOTE | 2019-03-25 15:53 | PN ---
Covering for Dr. Pickett. Subjective: Chart reviewed. Case discussed with Dr. Molina. Patient had a laparoscopic appendectom y and is doing well and is ready for discharge. Objective: General: He is awake, alert, tolerating diet, ambulating, pain controlled on p.o. pain m edication. Vital signs: Stable. He is afebrile. Abdomen: Benign. Assessment: Status post laparoscopic appendectomy. Recommendations: Patient is cleared from surgery standpoint for discharge on oral antibiotics. Foll ow up with Dr. Pickett per his instructions. /MODL Voice ID: [id number] Report ID: [id number]
[2019-03-25 18:06] VITALS: BP 125/60; TEMP 98.6
== END 2019-03-25 14:38 | disposition home or self-care (01) | DRG 341 ==
LOC: ER 12:51 → ERHOLD 17:25 → 3RD-ICU 19:45 → OBSVTOIN 03-23 07:32 → 2ND 03-23 14:25
PROVIDERS: ADMIT Internal Medicine; ATTEND Internal Medicine
PROC: 5A09357 Assistance with Respiratory Ventilation, Less than 24 Consecutive Hours, Continuous Positive Airway Pressure (ICD-10-PCS; 2019-03-22)
PROC: 0DTJ4ZZ Resection of Appendix, Percutaneous Endoscopic Approach (ICD-10-PCS; principal; 2019-03-22 16:45)
DX: K35.891 Other acute appendicitis without perforation, with gangrene (principal); J95.822 Acute and chronic postprocedural respiratory failure; J44.1 Chronic obstructive pulmonary disease with (acute) exacerbation; J43.9 Emphysema, unspecified; I10 Essential (primary) hypertension; N40.0 Benign prostatic hyperplasia without lower urinary tract symptoms; Z85.51 Personal history of malignant neoplasm of bladder
CPT/HCPCS: 36415; 71045; 74177; 80048; 80076; 81001; 82805; 83690; 83735; 85025; 85610; 85730; 87086; 87088; 88304; 93005; 94660; 94760; 96361; 96365; 96375; 99285; G0378; J2250; J2270; J2370; J2405; J2543; J2704; J2710; J3010; J3475; J7030; Q9967

== ENCOUNTER 2021-06-13 18:04 | Inpatient (IN) | payer OTHER, BC ==
--- OUTSIDE RECORDS SUMMARY | 2021-06-13 18:07 | XMS REPORT | Continuity of Care Document ---
:1945 Author Organization [facility] t Address [address] [place] [address] [address]. [address] [place] [address] Care Team Providers Name Role Phone Kaiden Reyes MD Attending Clinician Payers Payer Name Policy Type Policy Number Effective Date Expiration Date S ource Problems Condition Condition Condition Status Onset Resolution Last Treating Co mments Source Name Details Category Date Date Treatment Clinician Date Benign Benign Disease Active [facility] non-nodula non-nodula 3-09 Co llege r r 00:00: of prostatic prostatic 00 Medi jeffery hyperplasi hyperplasi e a with a with lower lower urinary urinary tract tract symptoms symptoms Malignant Malignant Disease Active 2015-07 [facility] neoplasm neoplasm 2-15 Colleg e of of 00:00: of posterior posterior 00 Medi jeffery wall of wall of e urinary urinary bladder bladder (HCCode) (HCCode) Hematuria Hematuria Disease Active [facility] 01-29 [place] 00:00: of 00 Medicin e Essential Essential Disease Active [facility] hypertensi hypertensi 01-29 Co llege on on 00:00: of 00 Medicin e Hyperchole Hyperchole Disease Active [facility] steremia steremia 01-29 Colleg e 00:00: of 00 Medicin e Bladder Bladder Disease Active [facility] mass mass 01-29 College 00:00: of 00 Medicin e Allergies, Adverse Reactions, Alerts This patient has no known allergies or adverse reactions. Social History Social Habit Start Date Stop Date Quantity Comments Source History of tobacco Cigarette Smoker [facility] use of Medicine Sex Assigned At [facility] Co llege of Medicine Cigarettes smoked 2019-08-04 2019-08-04 [facility] current (pack per 00:00:00 00:00:[address] [facility] ) - Reported Cigarette 2019-08-04 2019-08-04 [facility] pack-years 00:00:00 00:00:00 of Medicine Alcohol intake 2019-08-04 2019-08-04 Current drinker [facility] 00:00:00 00:00:00 of alcohol of Medicine (finding) Tobacco Comment 2016-01-30 2016-01-30 quit 8 years ago [facility] 00:00:00 00:00:00 of Medicine Smoking Status Start Date Stop Date Source Former smoker 2019-08-04 00:00:00 2019-08-04 00:00:00 [facility] olle of Medicine Medications Ordered Filled Start Stop Current Ordering Indication Dosage Frequency Signature Comments Components Source Medication Medication Date Date Medication? Clinician (SIG) Name Name rosuvastati Yes 10mg Take 10 mg George n (CRESTOR) 1-24 by mouth [facility]ario ege 10 MG 16:19: daily. of tablet 45 Medicin e ALBUTEROL Yes [id number] Take by George SULFATE OR 1-24 mouth. [place] 16:19: of 45 Medicin e predniSONE Yes 5mg Take 1 Tab [facility] (DELTASONE) 1-24 by mouth Cesario ege 5 MG tablet 00:00: daily. of 00 Medicin e Tamsulosin 2018-07 Yes [id number] TAKE 1 George HCl 0.4 MG 1-26 CAPSULE BY Col lege CAPS 00:00: MOUTH of 00 EVERY DAY Medicin e ALBUTEROL 2018-07 Yes [id number] Take by George SULFATE OR 0-02 mouth. [place] 18:14: of 28 Medicin e rosuvastati 2018-07 Yes 10mg Take 10 mg [facility] n (CRESTOR) 0-02 by mouth Cesario ege 10 MG 18:14: daily. of tablet 28 Medicin e Fluticasone 2018-07 Yes 1{puff} 1 Puff by George -Umeclidin- 0-02 Inhalation Co llege [facility] 00:00: route of 100-62.5-25 00 daily. Medici n MCG/INH e AEPB Fluticasone 2018-07 Yes 1{puff} 1 Puff by George -Umeclidin- 0-02 Inhalation [facility] l[facility] 00:00: route of 100-62.5-25 00 daily. Medici n MCG/INH e AEPB Tamsulosin Yes [id number] TAKE ONE [facility] HCl 0.4 MG 2-05 CAPSULE BY Col lege CAPS 00:00: MOUTH of 00 EVERY DAY Medicin e predniSONE Yes [id number] [facility] (DELTASONE) 5-16 College 10 MG 00:00: of tablet 00 Medicin e predniSONE 2020- No [id number] [facility] (DELTASONE) 5-16 - College 10 MG 00:00: 00:00 of tablet 00 :00 Medicin e ADVAIR 2015-07 Yes [facility] DISKUS 2-19 College 250-50 00:00: of MCG/DOSE 00 Medicin inhaler e ADVAIR 2015-07 2020- No [facility] DISKUS 2-19 -24 College 250-50 00:00: 00:00 of MCG/DOSE 00 :00 Medicin inhaler e amlodipine Yes [id number] [place] [facility] (NORVASC) 5 6-27 College MG tablet 00:00: of 00 Medicin e amlodipine Yes [id number] [place] [facility] (NORVASC) 5 6-27 College MG tablet 00:00: of 00 Medicin e Immunizations Ordered Immunization Filled Immunization Date Status Commen ts Source Name Name Pneumococcal 2017-07-31 Completed [facility] Colle ge Polysaccharide 00:00:00 of Medicin e Influenza whole 2017-07-31 Completed [facility] Co llege 00:00:00 of Medicine Pneumococcal 2017-07-31 Completed [facility] Colle ge Polysaccharide 00:00:00 of Medicin e Influenza whole 2017-07-31 Completed [facility] Co llege 00:00:00 of Medicine Vital Signs Vital Name Observation Time Observation Value Comments Source Systolic blood 2019-08-04 16:22:00 169 mm[Hg] [facility] Diastolic blood 2019-08-04 16:22:00 75 mm[Hg] [facility] Medicine Heart rate 2019-08-04 16:22:00 80 /min [facility] Body temperature 2019-08-04 16:22:00 36.33 [place] [facility] Respiratory rate 2019-08-04 16:22:00 16 /min [facility] Body height 2019-08-04 16:22:00 177.8 cm [facility] Body weight 2019-08-04 16:22:00 77.111 kg [facility] BMI 2019-08-04 16:22:00 24.39 kg/m2 [facility] Systolic blood 2019-04-12 18:11:00 164 mm[Hg] [facility] Diastolic blood 2019-04-12 18:11:00 81 mm[Hg] [facility] Heart rate 2019-04-12 18:11:00 82 /min [facility] Body temperature 2019-04-12 18:11:00 36.33 [place] Respiratory rate 2019-04-12 18:11:00 16 /min [facility] Body height 2019-04-12 18:11:00 177.8 cm [facility] Body weight 2019-04-12 18:11:00 71.215 kg [facility] BMI 2019-04-12 18:11:00 22.53 kg/m2 [facility] Procedures This patient has no known procedures. Plan of Care Planned Activity Planned Date Details Comments Source Future Scheduled COLON CANCER [facility]ario ege Test SCREENING: COLONOSCOPY of Me benavides [code = COLON CANCER SCREENING: COLONOSCOPY] Future Scheduled MEDICARE AWV [code = [place] [facility] [employer] Test MEDICARE AWV] of Medicine Future Scheduled TETANUS SHOT (ADULT) [place] [facility] [employer] Test [code = TETANUS SHOT of Medi cine (ADULT)] Future Scheduled AAA Screen [code = AAA [facility] College Test Screen] of Medicine Future Scheduled FALL SCREEN [code = [employer] Test FALL SCREEN] of Medicine Future Scheduled PREVNAR >= 65 (PCV13) [employer] [facility] Test [code = PREVNAR >= 65 of Med icine (PCV13)] Future Scheduled HUMIDIFIER FOR OXYGEN Ordered: [employer] [facility] [employer] Test [code = NOCPT] 08/04/2019 of Medicine Future Scheduled PORTABLE OXYGEN Ordered: [facility] C ollege Test CONCENTRATORS [code = 08/04/2019 of Med icine NOCPT] Future Scheduled PORTABLE OXYGEN [code Ordered: [employer] [facility] [employer] Test = NOCPT] 08/04/2019 of Medicine Future Scheduled OXYGEN CONCENTRATOR Ordered: [employer] Test [code = NOCPT] 08/04/2019 of Medicine Future Scheduled NASAL CANNULAS [code = Ordered: [facility] [employer] Test NOCPT] 08/04/2019 of Medicine Future Scheduled HANDICAPPED PLACARD Ordered: [employer] Test [code = NOCPT] 08/04/2019 of Medicine Future Scheduled MEDICARE AWV [code = [place] [facility] [employer] Test MEDICARE AWV] of Medicine Future Scheduled TETANUS SHOT (ADULT) [place] [facility] [employer] Test [code = TETANUS SHOT of Medi cine (ADULT)] Future Scheduled MEDICARE AWV (Initial) [facility] [employer] [employer] Test [code = MEDICARE AWV of Medi cine (Initial)] Future Scheduled FALL SCREEN [code = [employer] [facility] FALL SCREEN] of Medicine Future Scheduled PREVNAR >= 65 (PCV13) [employer] Test [code = PREVNAR >= 65 of Med icine (PCV13)] Future Scheduled COMPLETE PFT WITH 1 Occurrences [employer] Test BRONCHODILATOR [code = starting of Me dicine 80677] 04/12/2019 until 04/12/2020 Future Scheduled SIX MINUTE WALK TEST 1 Occurrences [employer] [facility] [employer] Test [code = 89598] starting of Medicine 04/12/2019 until 04/12/2020 Encounters Start End Encounter Admission Attending Care Care Encounter Source Date/Time Date/Time Type Type Clinicians Facility Department ID 2019-08-04 2019-08-04 Office SANTOS Reyes [id number] [facility] 08:54:04 11:21:20 Visit Kalyan AMBULATOR [id number] Kely Richey Y [id number] [facility] jeffery 315 e 2019-04-12 2019-04-12 Office SANTOS Reyes [id number] [facility] 12:00:27 14:20:18 Visit Kalyan AMBULATOR [id number] Kely Richey Y [id number] [facility] jeffery 315 e Results This patient has no known results.
[2021-06-13] MEDS ORDERED: IPRATROPIUM BROM 0.5MG/2.5ML ONE (18:51)
[2021-06-13] MEDS ORDERED: METHYLPREDNISOLONE 125 MG INJ ONE (18:51)
[2021-06-13] MEDS ORDERED: ALBUTEROL 2.5 MG/3 ML NEB SOL ONE (18:51)
[2021-06-13 19:32] LABS: Protime INR 1.09
[2021-06-13 19:33] LABS: Absolute Lymphocytes (CBC) 0.5 K/uL (0.7-4.9); Hematocrit 40.2 % (39.6-49.0); Lymphocytes % 3.3 % (15.3-44.8); MPV 8.4 fL (7.6-11.3)
[2021-06-13 19:46] LABS: ALT/SGPT 35 U/L (12-78); AST/SGOT 19 U/L (15-37); Albumin 2.8 g/dL (3.4-5.0); Alkaline Phosphatase 94 U/L (45-117); BUN Blood Urea Nitrogen 18 mg/dL (7-18); Bicarbonate 24 mmol/L (21-32); Bilirubin Direct 0.3 mg/dL (0-0.2); Glucose Level 108 mg/dL (74-106); Magnesium 1.6 mg/dL (1.8-2.4); NT PRO-BNP 66 pg/mL (<450); Potassium 3.7 mmol/L (3.5-5.1); Protein, Total 6.2 g/dL (6.4-8.2); Sodium Level 141 mmol/L (136-145); Troponin (Emerg Dept Use Only) < 0.02 ng/mL (0.0-0.045)
--- NOTE | 2021-06-13 20:13 | RAD REPORT ---
EXAM DESCRIPTION: RAD - Chest Single View - 06/13/2021 7:54 pm CLINICAL HISTORY: SOB COMPARISON: June 12 TECHNIQUE: AP portable chest image was obtained 06/13/2021 7:54 pm . FINDINGS: Patient has a baseline prominent COPD with extensive fibrotic stranding in each lung base. Bibasilar opacification is still present similar to the prior day study. No new finding from prior d ay imaging. Scarring, atelectasis, acute pneumonia or a combination can explain the lung base finding s. Heart and vasculature are normal. No measurable pleural effusion and no pneumothorax. No acute bony abnormality seen. No acute aortic findings suspected. IMPRESSION: Bibasilar lung parenchymal opacification superimposed on prominent COPD. Findings are similar to the prior day study. Scarring, atelectasis, pneumonia or a combination are al l possible.
[2021-06-13 20:16] LABS: SARS-COV-2 RT PCR POSITIVE (NEGATIVE)
[2021-06-13] MEDS ORDERED: CEFTRIAXONE 1000 MG/VIAL ONE (20:17)
[2021-06-13] MEDS ORDERED: NA CHLORIDE 0.9% 100 ML ONE (20:17)
[2021-06-13] MEDS ORDERED: NA CHLORIDE 0.9% 250 ML ONE (20:17)
[2021-06-13] MEDS ORDERED: AZITHROMYCIN 500 MG INJ IVPB ONE (20:17)
[2021-06-13] MEDS ORDERED: MAGNESIUM SULFATE 1 gm IVPB 1 GM/100 ML BAG IV ONE (20:18)
--- NOTE | 2021-06-13 20:59 | RAD REPORT ---
EXAM DESCRIPTION: CT - Chest For Pe Angio - 06/13/2021 8:40 pm CLINICAL HISTORY: SOB COMPARISON: Ct Low Dose Chest Screening dated 05/13/2017; Chest Single View dated 06/13/2021 TECHNIQUE: Dynamically enhanced 3 mm thick images of the chest were obtained during administration o f approximately 150mL Isovue 370 IV contrast. Coronal and oblique MIP reconstruction images were gene rated and reviewed. Exam utilizes a protocol to evaluate the pulmonary arterial tree. All CT scans are performed using dose optimization technique as appropriate and may include automated exposure control or mA/KV adjustment according to patient size. FINDINGS: No pulmonary emboli are identified. The aorta as imaged shows no acute or suspicious finding. No pericardial thickening or effusion. Patient has severe COPD is at baseline. An 8-10 centimeter area consolidated parenchyma seen in the p osterior gutter on the right. Air bronchograms are present within this focal opacification. Additiona l 4 x 2.5 cm parenchymal opacification is present lateral lower right lung field which could be scarr ing, mass or additional infiltrate. Minimal consolidation in the posterior gutter on the left. No ple ural effusion or pleural thickening. No mediastinal or hilar suspicious masses. No chest wall masses or abnormal axillary lymphadenopathy. IMPRESSION: No pulmonary emboli identified. Right greater than left posterior lung base consolidation most likely a bilateral pneumonia. Continue d follow-up is needed with CT chest reimaging in approximately 2-3 months following medical managemen t to assure complete clearing and no underlying malignancy.
--- NOTE | 2021-06-13 21:10 | EDPHYS ---
Physician Documentation [facility] Name: Jasbir Flores Age: 76 yrs Sex: Male : 1945 Arrival Date: 06/13/2021 Time: 18:06 Bed 5 Private MD: ED Physician Arsh Douglass HPI: 06/13 18:35 This 76 yrs old Male presents to ER via EMS with complaints of Shortness of Breath. cp 18:35 The patient or guardian reports difficulty breathing. Onset: The symptoms/episode cp began/occurred today. Associated signs and symptoms: Pertinent positives: fever, Pertinent negatives: chest pain, sore throat, vomiting. Severity of symptoms: in the emergency department the symptoms are unchanged despite home interventions. Historical: - Allergies: 18:42 No Known Allergies; ll3 - Home Meds: 18:42 tamsulosin 0.4 mg Oral cp24 1 cap once daily [Active]; amlodipine 5 mg tab 1 tab once ll3 daily [Active]; prednisone 10 mg Oral tab 1 tab 2 times per day [Active]; rosuvastatin 10 mg Oral tab 1 tab once daily [Active]; glycopyrrolate inhalation [Active]; Advair Diskus Inhl [Active]; - PMHx: 18:42 Hypertension; Emphysema; Hyperlipidemia; Bladder cancer; ll3 - PSHx: 18:42 Appendectomy; ll3 - Immunization history:: Client reports receiving the 2nd dose of the Covid vaccine. - Social history:: Smoking status: Patient/guardian denies using tobacco. ROS: 18:40 Constitutional: Negative for body aches, chills, fever, poor PO intake. cp 18:40 Eyes: Negative for injury, pain, redness, and discharge. cp 18:40 ENT: Negative for ear pain, sore throat, difficulty swallowing, difficulty handling secretions. 18:40 Cardiovascular: Negative for chest pain, edema, palpitations. 18:40 Respiratory: Positive for cough, shortness of breath. 18:40 Abdomen/GI: Negative for abdominal pain, nausea, vomiting, and diarrhea. 18:40 Back: Negative for radiated pain. 18:40 Neuro: Negative for dizziness, headache, syncope, weakness. 18:40 All other systems are negative. Exam: 18:45 Constitutional: The patient appears in no acute distress, alert, awake, cp non-diaphoretic, non-toxic, well developed, well nourished. 18:45 Head/Face: Normocephalic, atraumatic. cp 18:45 Eyes: Periorbital structures: appear normal, Conjunctiva: normal, no exudate, no injection, Sclera: no appreciated abnormality, Lids and lashes: appear normal, bilaterally. 18:45 ENT: External ear(s): are unremarkable, Nose: is normal, Mouth: Lips: moist, Oral mucosa: pink and intact, moist, Posterior pharynx: Airway: no evidence of obstruction, patent. 18:45 Neck: ROM/movement: is normal, is supple, without pain, no range of motions limitations. 18:45 Chest/axilla: Inspection: normal, Palpation: is normal, no crepitus, no tenderness. 18:45 Cardiovascular: Rate: normal, Rhythm: regular, Edema: is not appreciated, JVD: is not appreciated. 18:45 Respiratory: the patient does not display signs of respiratory distress, Respirations: labored breathing, that is moderate, shallow respirations, that is mild, Breath sounds: decreased breath sounds, that are moderate, throughout, stridor, is not appreciated, wheezing: is not appreciated. 18:45 Abdomen/GI: Inspection: abdomen appears normal, Palpation: abdomen is soft and non-tender, in all quadrants. 18:45 Back: pain, is absent, ROM is normal. 18:45 Neuro: Orientation: to person, place \T\ time. Mentation: is normal, Motor: moves all fours, strength is normal, Sensation: is normal. 19:30 ECG was reviewed by the Attending Physician. cp Vital Signs: 18:33 BP 96 / 64; Pulse 97; Resp 21; Temp 98.8; Pulse Ox 85% on 6 lpm NC; Weight 72.57 kg; ll3 Height 5 ft. 10 in. (177.80 cm); 18:46 BP 125 / 62; Pulse 87; Resp 20; Temp 98.8; Pulse Ox 97% on 6 lpm NC; ll3 19:26 BP 118 / 75; Pulse 87; Resp 11 S; Pulse Ox 100% on Nebulizer Mask; as6 20:30 BP 119 / 68; Pulse 102; Resp 15 S; Pulse Ox 98% on 2 lpm NC; as6 22:15 BP 110 / 70; Pulse 86; Resp 20 S; Pulse Ox 99% on 2 lpm NC; as6 18:33 Body Mass Index 22.96 (72.57 kg, 177.80 cm) ll3 MDM: 18:19 Patient medically screened. cp 19:00 Differential diagnosis: bronchitis, flu, URI, pneumonia, respiratory failure, pulmonary cp embolism. 21:05 Data reviewed: vital signs, nurses notes, lab test result(s), EKG, radiologic studies, cp CT scan, plain films. 21:05 Test interpretation: by ED physician or midlevel provider: ECG, plain radiologic cp studies. Counseling: I had a detailed discussion with the patient and/or guardian regarding: the historical points, exam findings, and any diagnostic results supporting the discharge/admit diagnosis, lab results, radiology results, the need for further work-up and treatment in the hospital. Response to treatment: the patient's symptoms have mildly improved after treatment. Physician consultation: Ba BARRIENTOS was contacted at 21:05, regarding admission, to the telemetry unit. patient's condition. 06/13 18:31 Order name: Basic Metabolic Panel; Complete Time: 20:02 cp 12/03 20:02 Interpretation: Normal except: CL 108; GLUC 108. cp 12/ 18:31 Order name: CBC with Diff; Complete Time: 20:02 cp 12/03 20:02 Interpretation: Normal except: WBC 14.10; HGB 13.4; PLT 355; JJ% 88.8; LYM% 3.3; NEUT cp A 12.5; LYMA 0.5. 12 18:31 Order name: LFT's; Complete Time: 20:02 cp / 18:31 Order name: Magnesium; Complete Time: 20:02 cp 12/ 18:31 Order name: NT PRO-BNP; Complete Time: 20:02 cp 12/03 18:31 Order name: PT-INR; Complete Time: 20:02 cp 12/03 18:31 Order name: Troponin (emerg Dept Use Only); Complete Time: 20:02 cp 12/03 18:31 Order name: Blood Culture Adult (2) cp 12/ 18:31 Order name: Lactate; Complete Time: 20:02 cp 12/ 18:31 Order name: Procalcitonin; Complete Time: 20:02 cp 12/ 19:21 Order name: COVID-19/FLU A+B; Complete Time: 20:17 EDMS 12/ 20:17 Interpretation: Reviewed. cp 12/03 23:42 Order name: C-Reactive Protein EDMS 12/ 18:31 Order name: XRAY Chest (1 view); Complete Time: 20:17 cp 12/03 18:31 Order name: EKG; Complete Time: 18:32 cp 06/13 18:31 Order name: Cardiac monitoring; Complete Time: 18:48 cp / 18:31 Order name: EKG - Nurse/Tech; Complete Time: 19:25 cp / 18:31 Order name: IV Saline Lock; Complete Time: 19:07 cp / 18:31 Order name: Labs collected and sent; Complete Time: 19:07 cp / 18:31 Order name: O2 Per Protocol; Complete Time: 18:48 cp / 18:31 Order name: O2 Sat Monitoring; Complete Time: 18:48 cp 06/13 20:04 Order name: CT Chest For PE Angio; Complete Time: 21:01 cp 12/ 21:29 Order name: CONS Physician Consult EDMS 12/ 23:42 Order name: Ferritin EDMS EC:30 Rate is 85 beats/min. Rhythm is regular. KS interval is normal. QRS interval is normal. cp QT interval is normal. T waves are Inverted in leads V4, V5, V6. Interpreted by me. Reviewed by me. Administered Medications: 19:07 Drug: Albuterol - atroVENT (ipratropium) (3:1) (2.5 mg - 0.5 mg) 3 ml Route: Nebulizer; ll3 20:09 Follow up: Response: No adverse reaction as6 19:08 Not Given (not approate at this time): SOLU-Medrol (methylPrednisoLONE) 125 mg IVP once ll3 21:20 Drug: Magnesium Sulfate 1 grams Route: IVPB; Infused Over: 1 hrs; Site: right forearm; as6 22:30 Follow up: Response: No adverse reaction; IV Status: Completed infusion; IV Intake: [id number] 21:20 Drug: Rocephin (cefTRIAXone) 2 grams Route: IV; Rate: calculated rate; Site: right as6 antecubital; 22:00 Follow up: Response: No adverse reaction; IV Status: Completed infusion; IV Intake: as6 100ml 21:21 Drug: Zithromax (azithromycin) 500 mg Route: IVPB; Infused Over: 1 hrs; Site: right as6 antecubital; 22:30 Follow up: Response: No adverse reaction; IV Status: Completed infusion; IV Intake: as6 250ml Disposition Summary: 06/13/21 21:08 Hospitalization Ordered Hospitalization Status: Inpatient Admission cp Provider: Kaiden Molina cp Condition: Stable cp Problem: new cp Symptoms: have improved cp Bed/Room Type: Standard cp Location: Intensive Care Unit(06/13/21 21:32) Room Assignment: 7-(06/13/21 21:32) Diagnosis - Pneumonia due to SARS-associated coronavirus cp - Hypoxemia cp Forms: - Medication Reconciliation Form cp - SBAR form cp Addendum: 06/16/2021 07:48 Co-signature as Attending Physician, Arsh Douglass MD I agree with the assessment and c salas plan of care. Signatures: Dispatcher [employer] EDND Sammi Fraire RN RN Arsh Douglass MD MD cha Page, Corey, PA PA Chaitanya Valadez RN RN as6 Akil Dobson RN RN ll3 Corrections: (The following items were deleted from the chart) 06/13 19:20 18:31 Influenza Screen (A \T\ B)+BA.LAB.BRZ ordered. EDND EDND 19:21 18:31 CORONAVIRUS+MR.LAB.BRZ ordered. EDND EDND 21:32 21:08 Telemetry/MedSurg (Inpatient) [facility] 21:32 21:08 cp 06/14 16:15 16:14 This 76 yrs old Male presents to ER via EMS with complaints of Shortness of cp Breath. cp
--- NOTE | 2021-06-13 21:10 | ER ---
Nurse's Notes [facility] Name: Jasbir Flores Age: 76 yrs Sex: Male : 1945 Arrival Date: 06/13/2021 Time: 18:06 Bed 5 Private MD: Diagnosis: Pneumonia due to SARS-associated coronavirus;Hypoxemia Presentation: 06/13 18:33 Chief complaint: Patient states: EMS toned out for SOB. Coronavirus screen: Vaccine ll3 status: Patient reports receiving the 2nd dose of the covid vaccine. Client denies travel out of the [place] in the last 14 days. Client presents with at least one sign or symptom that may indicate coronavirus-19. Standard/surgical mask placed on the client. Provider contacted for isolation considerations. Ebola Screen: No symptoms or risks identified at this time. Initial Sepsis Screen: Does the patient meet any 2 criteria? RR > 20 per min. No. Patient's initial sepsis screen is negative. Initial Sepsis Screen: Does the patient have a suspected source of infection? No. Patient's initial sepsis screen is negative. Risk Assessment: Do you want to hurt yourself or someone else? Patient reports no desire to harm self or others. Onset of symptoms was May 21, 2021. Care prior to arrival: Medication(s) given: Normal saline infusion, 1000 mL, Solu-Medrol, NC at 6 LPM. Transition of care: patient was not received from another setting of care. 18:33 Method Of Arrival: EMS: [facility] 18:33 Acuity: MONICA 3 ll3 Triage Assessment: 18:42 General: Appears in no apparent distress. uncomfortable, Behavior is calm, cooperative. ll3 Pain: Denies pain. Neuro: Level of Consciousness is awake, alert, obeys commands, Oriented to person, place, time, situation, Speech is normal, Facial symmetry appears normal. Cardiovascular: Patient's skin is warm and dry. Respiratory: Reports shortness of breath Airway is patent Respiratory effort is even, unlabored, Respiratory pattern is regular, symmetrical, Breath sounds with crackles bilaterally. Parent/caregiver reports the patient having shortness of breath. Derm: Skin is pink, warm \T\ dry. Historical: - Allergies: 18:42 No Known Allergies; ll3 - Home Meds: 18:42 tamsulosin 0.4 mg Oral cp24 1 cap once daily [Active]; amlodipine 5 mg tab 1 tab once ll3 daily [Active]; prednisone 10 mg Oral tab 1 tab 2 times per day [Active]; rosuvastatin 10 mg Oral tab 1 tab once daily [Active]; glycopyrrolate inhalation [Active]; Advair Diskus Inhl [Active]; - PMHx: 18:42 Hypertension; Emphysema; Hyperlipidemia; Bladder cancer; ll3 - PSHx: 18:42 Appendectomy; ll3 - Immunization history:: Client reports receiving the 2nd dose of the Covid vaccine. - Social history:: Smoking status: Patient/guardian denies using tobacco. Screenin:46 Abuse screen: Denies threats or abuse. Nutritional screening: No deficits noted. ll3 Tuberculosis screening: No symptoms or risk factors identified. Fall Risk IV access (20 points). Assessment: 18:18 General: Appears in no apparent distress. uncomfortable, Behavior is calm, cooperative, ll3 anxious. 18:24 General: [facility] toned out for SOB, EMS administered NS bolus, NC at 6 LPM, and ll3 125 mg of Solu-Medrol, Pt reports positive home covid test on 05/26/21, started feeling ill on 05/21/21, . Pain: Denies pain. Neuro: Level of Consciousness is awake, alert, obeys commands, Oriented to person, place, time, situation, Speech is normal, Facial symmetry appears normal, Reports dizziness. Cardiovascular: Patient's skin is warm and dry. Respiratory: Airway is patent Respiratory effort is even, unlabored, Respiratory pattern is regular, symmetrical. Respiratory: Breath sounds with crackles bilaterally. Onset: The symptoms/episode began/occurred 05/26/21, Parent/caregiver reports the patient having shortness of breath. Derm: Skin is pink, warm \T\ dry. 19:08 Reassessment: ERP notified pt was given Solu-Medrol en route by EMS. ll3 Vital Signs: 18:33 BP 96 / 64; Pulse 97; Resp 21; Temp 98.8; Pulse Ox 85% on 6 lpm NC; Weight 72.57 kg; ll3 Height 5 ft. 10 in. (177.80 cm); 18:46 BP 125 / 62; Pulse 87; Resp 20; Temp 98.8; Pulse Ox 97% on 6 lpm NC; ll3 19:26 BP 118 / 75; Pulse 87; Resp 11 S; Pulse Ox 100% on Nebulizer Mask; as6 20:30 BP 119 / 68; Pulse 102; Resp 15 S; Pulse Ox 98% on 2 lpm NC; as6 22:15 BP 110 / 70; Pulse 86; Resp 20 S; Pulse Ox 99% on 2 lpm NC; as6 18:33 Body Mass Index 22.96 (72.57 kg, 177.80 cm) ll3 ED Course: 18:06 Patient arrived in ED. iw 18:12 Arsh Chun PA is PHCP. cp 18:12 Salomon Smith MD is Attending Physician. cp 18:17 Jonnathan Nj, FLOR is Primary Nurse. jl7 18:42 Triage completed. ll3 18:42 Arm band placed on. ll3 18:45 Initial lab(s) drawn, by me, sent to lab. First set of blood cultures drawn by me. jl7 18:46 Patient has correct armband on for positive identification. Bed in low position. Call 3 light in reach. Side rails up X 1. 18:56 Inserted saline lock: 20 gauge in right forearm, using aseptic technique. Blood jl7 collected. 18:56 Second set of blood cultures drawn by ny, COVID swab sent to lab. Flu and/or RSV swab jl7 sent to lab. 19:07 patient monitor on. Pulse ox on. NIBP on. Warm blanket given. jl7 19:19 Arsh Douglass MD is Attending Physician. cp 19:53 Primary Nurse role handed off by Jonnathan Nj, FLOR mw2 19:54 XRAY Chest (1 view) In Process Unspecified. EDMS 20:12 Chaitanya Valadez, FLOR is Primary Nurse. as6 20:40 CT Chest For PE Angio In Process Unspecified. EDMS 21:07 Kaiden Molina is Hospitalizing Provider. cp 22:59 No provider procedures requiring assistance completed. Patient admitted, IV remains in as6 place. Administered Medications: 19:07 Drug: Albuterol - atroVENT (ipratropium) (3:1) (2.5 mg - 0.5 mg) 3 ml Route: Nebulizer; ll3 20:09 Follow up: Response: No adverse reaction as6 19:08 Not Given (not approate at this time): SOLU-Medrol (methylPrednisoLONE) 125 mg IVP once ll3 21:20 Drug: Magnesium Sulfate 1 grams Route: IVPB; Infused Over: 1 hrs; Site: right forearm; as6 22:30 Follow up: Response: No adverse reaction; IV Status: Completed infusion; IV Intake: 20aadv1 21:20 Drug: Rocephin (cefTRIAXone) 2 grams Route: IV; Rate: calculated rate; Site: right as6 antecubital; 22:00 Follow up: Response: No adverse reaction; IV Status: Completed infusion; IV Intake: as6 100ml 21:21 Drug: Zithromax (azithromycin) 500 mg Route: IVPB; Infused Over: 1 hrs; Site: right as6 antecubital; 22:30 Follow up: Response: No adverse reaction; IV Status: Completed infusion; IV Intake: as6 250ml Intake: 22:00 IV: 100ml; Total: 100ml. as6 22:30 IV: 50ml; Total: 150ml. as6 22:30 IV: 250ml; Total: 400ml. as6 Outcome: 21:08 Decision to Hospitalize by Provider. cp 23:07 Admitted to ICU accompanied by tech, via wheelchair, room 7, with oxygen, with chart. as6 23:07 Condition: stable 23:58 Patient left the ED. as6 Signatures: Dispatcher [employer] EDMS Marce Roberts, RN RN Arsh Hilton PA PA cp Jonnathan Nj RN RN jl7 Nolan Smith mw2 Chaitanya Valadez RN RN as6 Akil Dobson RN RN ll3 Corrections: (The following items were deleted from the chart) 18:31 18:18 General: Appears in no apparent distress. uncomfortable, Behavior is calm, ll3 cooperative, anxious, Reports fever for 0-12 hours, feeling ill for One month. ll3 18:33 18:24 General: [facility] toned out for SOB, EMS administered NS bolus, NC at 6 LPM, ll3 and 125 mg of Solu-Medrol, Pt reports positive home covid test on 05/26/21, started feeling ill on 05/21/21, . ll3
[2021-06-13] MEDS ORDERED: IPRATROPIUM BROM 0.5MG/2.5ML NEB PRN (23:09)
[2021-06-13] MEDS ORDERED: BENZONATATE 100 MG CAP PO PRN (23:09)
[2021-06-13] MEDS ORDERED: ACETAMINOPHEN 500 MG TAB PO PRN (23:09)
[2021-06-13] MEDS ORDERED: ONDANSETRON 4 MG/2 ML VIAL IV PRN (23:09)
[2021-06-13] MEDS ORDERED: ALBUTEROL 2.5 MG/3 ML NEB SOL NEB PRN (23:09)
[2021-06-13 23:41] LABS: C-Reactive Protein 18.6 mg/L (<3.00); Ferritin 528.6 ng/mL (26-388)
--- NOTE | 2021-06-13 23:46 | P.HP ---
Certification for Inpatient Patient admitted to: Inpatient With expected LOS: >2 Midnights Patient will require the following post-hospital care: None Practitioner: I am a practitioner with admitting privileges, knowledge of patient current condition, hospital course, and medical plan of care. Services: Services provided to patient in accordance with Admission requirements found in Title 42 Section 412.3 of the Code of Federal Regulations Patient History Date of Service: 06/13/21 Primary Care Provider: Kalyan Reason for admission: pneumonia, copd exacerbation History of Present Illness: Mr. Flores is a 76 yo M with COPD, HTN, HLD, history of bladder cancer who presents with SOB, ROJAS and fever. He went to preop yesterday for heart cath next week, and he noted at that time that he was extremely fatigued. He is on 2L of home O2, and has not had to increase his O2 needs. Has not had to increase inhaler use. Reports anorexia and decreased fluid intake. Denies cough, nausea, vomiting, diarrhea. He tested positive for COVID on 05/26/21. He says his symptoms were bad from 05/21-05/24 and then he began to feel better. WBC 14.1 procal 0.08. CTPE IMPRESSION: No pulmonary emboli identified. Right greater than left posterior lung base consolidation most likely a bilateral pneumonia. Continued follow-up is needed with CT chest reimaging in approximately 2-3 months following medical management to assure complete clearing and no underlying malignancy. CXR IMPRESSION: Bibasilar lung parenchymal opacification superimposed on prominent COPD. Findings are similar to the prior day study. Scarring, atelectasis, pneumonia or a combination are all possible. Allergies No Known Allergies Allergy (Verified 06/12/21 14:38) Home Medications: Amlodipine Besylate 5 mg PO DAILY 07/30/17 Rosuvastatin [Crestor*] 10 mg PO DAILY 07/30/17 Tamsulosin HCl 0.4 mg PO DAILY 07/30/17 predniSONE [Deltasone*] 10 mg PO BID #20 tab 08/01/17 Albuterol Sulfate [Proair Hfa] 8.5 gm IH BID 03/22/19 Ciprofloxacin HCl [Cipro 500 MG Tablet] 500 mg PO BID 7 Days #14 tab 03/25/19 Tiotropium [place] [Spiriva Respimat] 4 gm IH DAILY 30 Days #30 mist.inhal 03/25/19 Tramadol HCl [Ultram] 50 mg PO Q6H PRN #30 tablet 03/25/19 metroNIDAZOLE [Flagyl] 500 mg PO Q8H 7 Days #21 tablet 03/25/19 - Past Medical/Surgical History Diabetic: No -: had heart cath 10 yrs ago. no stent placed -: COPD, emphysema -: 02/2016 bladder cancer. 1 year of chemo -: BPH -: Htn -: HLD -: 02/24 Ca tumor removed from bladder -: Lap Appy 03/22 - Family History Father -: Cancer Sister -: Heart disease, Lung disease - Social History Smoking Status: Former smoker Alcohol use: No CD- Drugs: No Caffeine use: Yes Place of Residence: Home Review of Systems General: Fever, Weakness, Malaise Eyes: Unremarkable ENT: Unremarkable Respiratory: Shortness of Breath, SOB with Excertion Cardiovascular: Unremarkable Gastrointestinal: Unremarkable Genitourinary: Unremarkable Musculoskeletal: Unremarkable Integumentary: Unremarkable Neurological: Unremarkable Physical Examination - Physical Exam General: Alert, In no apparent distress HEENT: Atraumatic, PERRLA, Mucous membr. moist/pink, EOMI, Sclerae nonicteric Neck: Supple, 2+ carotid pulse no bruit, No LAD, Without JVD or thyroid abnormality Respiratory: Diminished, Expiratory wheezes, Rhonchi/gurgles Cardiovascular: Regular rate/rhythm, Normal S1 S2 Gastrointestinal: Normal bowel sounds, No tenderness Musculoskeletal: No tenderness Integumentary: No rashes Neurological: Normal speech, Normal strength at 5/5 x4 extr, Normal tone, Normal affect Lymphatics: No axilla or inguinal lymphadenopathy - Studies Laboratory Data (last 24 hrs) 06/13/21 18:56: PT 12.5, INR 1.09 06/13/21 18:56: WBC 14.10 H D, Hgb 13.4 L, Hct 40.2, Plt Count 355 D 06/13/21 18:56: Sodium 141, Potassium 3.7, BUN 18, Creatinine 0.77, Glucose 108 H, Magnesium 1.6 L, Total Bilirubin 1.0, AST 19, ALT 35, Alkaline Phosphatase 94 Assessment and Plan - Problems (Diagnosis) (1) Pneumonia Current Visit: Yes Status: Acute Qualifiers: Pneumonia type: due to unspecified organism Laterality: bilateral Lung location: lower lobe of lung Qualified Code(s): J18.9 - Pneumonia, unspecified organism (2) COPD exacerbation Onset Date: 08/02/17 Current Visit: No Status: Acute (3) Essential hypertension Onset Date: 08/02/17 Current Visit: No Status: Chronic (4) Hyperlipidemia Onset Date: 08/02/17 Current Visit: No Status: Chronic Qualifiers: Hyperlipidemia type: unspecified Qualified Code(s): E78.5 - Hyperlipidemia, unspecified (5) Hypoxia Onset Date: 08/02/17 Current Visit: No Status: Acute - Plan pulm consulted, RT consulted continue IV steroids, breathing tx, O2 as needed continue IV antibiotics CRP, procal, ferritin pending Mg replacement ABG pending reconcile and continue home medications DVT ppx Discharge Plan: Home Plan to discharge in: 72 Hours - Advance Directives Does patient have a Living Will: No Does patient have a Durable POA for Healthcare: No - Code Status/Comfort Care Code Status Assessed: Yes (full code ) Critical Care: No Time Spent Managing Pts Care (In Minutes): 70
[2021-06-14] MEDS ORDERED: TAMSULOSIN 0.4 MG SR CAP ONE (00:48)
[2021-06-14 01:15] VITALS: BMI 22.9
[2021-06-14] MEDS: METHYLPREDNISOLONE 40 MG INJ IV SCH ×3 (01:16→17:04)
[2021-06-14 01:29] LABS: Urine Appearance CLEAR (Clear); Urine Bilirubin NEGATIVE (Negative); Urine Blood 2+ (Negative); Urine Color YELLOW (Yellow); Urine Glucose 2+ (Negative); Urine Protein NEGATIVE (Negative); Urine Specific Gravity >=1.030 (1.005-1.030); Urine Urobilinogen 0.2 mg/dL (0.2-1.0); Urine pH 5.5 (5.0-7.0)
[2021-06-14 01:37] LABS: Urine Microscopic Reflex ORDER UMIC
[2021-06-14 01:42] LABS: Urine Bacteria >50 /HPF (NONE SEEN)
[2021-06-14 01:43] LABS: Calcium Oxalate Crystals- Ur FEW (NONE SEEN); Urine Mucus 1+ /HPF (NONE SEEN)
[2021-06-14 06:31] LABS: Absolute Lymphocytes (CBC) 0.6 K/uL (0.7-4.9); Basophils % 0.4 % (0-1.3); Lymphocytes % 5.8 % (15.3-44.8); MPV 8.3 fL (7.6-11.3)
[2021-06-14 06:49] LABS: Albumin 2.9 g/dL (3.4-5.0); Bilirubin Total 0.5 mg/dL (0.2-1.0); Magnesium 2.5 mg/dL (1.8-2.4); Phosphorus 2.6 mg/dL (2.5-4.9); Potassium 3.8 mmol/L (3.5-5.1); Protein, Total 6.8 g/dL (6.4-8.2); Thyroid Stimulating Hormone 0.502 uIU/mL (0.360-3.740)
[2021-06-14 07:32] LABS: Blood Morphology Comment NOT SEEN (NOT SEEN); Platelet Estimate ADEQ; White Blood Cell Scan OK (OK)
[2021-06-14] MEDS: ENOXAPARIN 40 MG/0.4 ML SQ SCH ×2 (08:05→08:47)
[2021-06-14] MEDS ORDERED: POTASSIUM CL SA 10 MEQ TAB PO ONE (09:00)
--- NOTE | 2021-06-14 09:51 | P.CNS ---
Date of Consult: 06/14/21 Reason for Consult: Coronavirus pneumonia Primary Care Provider: Kalyan Chief Complaint: pneumonia, copd exacerbation History of Present Illness: Patient is 76 patient is 76 years of age with a history of COPD admitted with shortness of breath he has oxygen at home tested positive for Covid he has bilateral changes on the CT scan currently doing well oxygenation satisfactory no other complaint Allergies No Known Allergies Allergy (Verified 06/12/21 14:38) Home Medications: Amlodipine [Norvasc] 5 mg PO DAILY 06/14/21 Fluticasone/Umeclidin/Vilanter [Trelegy Ellipta 100-62.5-25] 1 each IH Q6HP PRN 06/14/21 Rosuvastatin [Crestor] 10 mg PO BEDTIME 06/14/21 Tamsulosin [Flomax] 0.4 mg PO BEDTIME 06/14/21 predniSONE [Deltasone] 5 mg PO BID 06/14/21 - Past Medical/Surgical History Diabetic: No -: had heart cath 10 yrs ago. no stent placed -: COPD, emphysema -: 02/2016 bladder cancer. 1 year of chemo -: BPH -: Htn -: HLD -: 02/24 Ca tumor removed from bladder -: Lap Appy 03/22 - Family History Father Medical History: Cancer Sister Medical History: Heart disease, Lung disease - Social History Alcohol use: Yes CD- Drugs: No Caffeine use: Yes Place of Residence: Home Review of Systems 10-point ROS is otherwise unremarkable Physical Examination Temp Pulse Resp BP Pulse Ox 97.9 F 82 15 119/60 98 06/14/21 08:00 06/14/21 08:00 06/14/21 08:00 06/14/21 08:00 06/14/21 08:00 General: Alert, In no apparent distress, Oriented x3 Neck: Supple Laboratory Data (last 24 hrs) 06/13/21 18:56: PT 12.5, INR 1.09 06/13/21 18:56: WBC 14.10 H D, Hgb 13.4 L, Hct 40.2, Plt Count 355 D 06/13/21 18:56: Sodium 141, Potassium 3.7, BUN 18, Creatinine 0.77, Glucose 108 H, Magnesium 1.6 L, Total Bilirubin 1.0, AST 19, ALT 35, Alkaline Phosphatase 94 - Problems (1) 2019 novel coronavirus-infected pneumonia (NCIP) Current Visit: Yes Status: Acute Plan: Patient is 76 years of age with a history of COPD on oxygen admitted with bilateral patchy changes most likely has mild coronavirus pneumonia oxygenation satisfactory he has home O2 can be discharged home on prednisone 10 mg twice a day he does take 5 mg of prednisone at home labs chemistries and labs chemistries reviewed patient takes Symbicort at home
[2021-06-14] MEDS: FLUTICASONE 50MCG NASAL SPRAY NAS SCH (12:10)
--- NOTE | 2021-06-14 12:36 | EKG ---
Test Date: 2021-06-13 Test Time: 19:23:24 Pourer Crane Ladle: MEASUREMENT RESULTS: Intervals: Rate: 85 DE: 154 QRSD: 80 QT: 350 QTc: 416 [place]: P: 84 DE: 154 QRS: 92 T: 74 INTERPRETIVE STATEMENTS: Normal sinus rhythm Rightward axis Nonspecific T wave abnormality Abnormal ECG Compared to ECG 06/12/2021 14:56:15 Right-axis deviation now present T-wave abnormality now present Myocardial infarct finding no longer present Electronically Signed On 06-14-21 12:35:35 [employer]ION [employer]IE[employer] by Austin Guzman
[2021-06-14] MEDS ORDERED: CEFTRIAXONE 1,000 MG in NA CHLORIDE 0.9% 50 ML IVPB SCH (20:00)
[2021-06-14] MEDS ORDERED: AZITHROMYCIN IV 500 MG in NA CHLORIDE 0.9% 250 ML IVPB SCH (20:00)
[2021-06-14] MEDS ORDERED: TAMSULOSIN 0.4 MG SR CAP PO SCH ×2 (21:00)
[2021-06-14] MEDS ORDERED: ROSUVASTATIN 10 MG TAB PO SCH (21:00)
[2021-06-15] MEDS: METHYLPREDNISOLONE 40 MG INJ IV SCH ×3 (00:10→16:04)
--- NOTE | 2021-06-15 07:53 | RAD REPORT ---
EXAM DESCRIPTION: RAD - Chest Single View - 06/15/2021 4:36 am CLINICAL HISTORY: pneumonia COMPARISON: June 13 TECHNIQUE: AP portable chest image was obtained 06/15/2021 4:36 am . FINDINGS: Patchy bilateral interstitial and alveolar opacities not clearly different. There has been no progression of these findings. Baseline prominent COPD again noted. Heart and vasculature are normal. No measurable pleural effusion and no pneumothorax. No acute bony abnormality seen. No acute aortic findings suspected. IMPRESSION: Bibasilar lung parenchymal opacification similar to June 13.
[2021-06-15] MEDS: ENOXAPARIN 40 MG/0.4 ML SQ SCH (08:21)
[2021-06-15] MEDS: FLUTICASONE 50MCG NASAL SPRAY NAS SCH (08:21)
[2021-06-15] MEDS ORDERED: AMLODIPINE 5 MG TAB PO SCH (09:00)
--- NOTE | 2021-06-15 10:03 | P.PN ---
Subjective Date of Service: 06/14/21 Patient continues to improve. Respiratory status is stable. Only requiring 3 L of oxygen. Will ambulate out of bed and see how patient does. Anticipate discharge tomorrow if patient is clinically doing well. Review of Systems 10-point ROS is otherwise unremarkable Physical Examination - Vital Signs Temperature: 97.4 F Blood Pressure: 143/69 Pulse: 72 Respirations: 13 Pulse Ox (%): 96 - Physical Exam General: Alert, In no apparent distress, Oriented x3 Respiratory: Diminished Cardiovascular: Regular rate/rhythm, Normal S1 S2, Systolic murmur Gastrointestinal: Normal bowel sounds, Soft and benign, Non-distended Musculoskeletal: No clubbing, No swelling Neurological: Normal gait, Sensation intact, Cranial nerves 3-12 intact, Abnormal strength Assessment & Plan - Problems (Diagnosis) (1) 2019 novel coronavirus-infected pneumonia (NCIP) Current Visit: Yes Status: Acute (2) COPD exacerbation Onset Date: 08/02/17 Current Visit: No Status: Acute (3) Hypoxia Onset Date: 08/02/17 Current Visit: No Status: Acute (4) Essential hypertension Onset Date: 08/02/17 Current Visit: No Status: Chronic (5) Hyperlipidemia Onset Date: 08/02/17 Current Visit: No Status: Chronic Qualifiers: Hyperlipidemia type: unspecified Qualified Code(s): E78.5 - Hyperlipidemia, unspecified - Plan 1. Continue with IV steroids 2. Monitor inflammatory markers 3. Repeat chest x-ray 4. O2 per protocol 5. Pulmonary consultation appreciated 6. Continue with albuterol inhaler therapy; also supportive care 7. Monitor LFTs 8. GI and DVT prophylaxis Discharge Plan: Home Plan to discharge in: Greater than 2 days - Advance Directives Does patient have a Living Will: No Does patient have a Durable POA for Healthcare: No - Code Status/Comfort Care Code Status Assessed: Yes Code Status: Full Code Critical Care: No Time Spent Managing PTS Care (In Minutes): 35
--- NOTE | 2021-06-15 10:04 | P.PN ---
Date of Service: 06/15/21 Subjective Chest x-ray with bilateral pulmonary opacities; possible discharge later today. Review of Systems 10-point ROS is otherwise unremarkable Physical Examination - Vital Signs Reviewed - Physical Exam General: Alert, In no apparent distress, Oriented x3 Respiratory: Diminished Cardiovascular: Regular rate/rhythm, Normal S1 S2, Systolic murmur Gastrointestinal: Normal bowel sounds, Soft and benign, Non-distended Musculoskeletal: No clubbing, No swelling Neurological: Normal gait, Sensation intact, Cranial nerves 3-12 intact, Abnormal strength Assessment & Plan - Problems (Diagnosis) (1) 2019 novel coronavirus-infected pneumonia (NCIP) Current Visit: Yes Status: Acute (2) COPD exacerbation Onset Date: 08/02/17 Current Visit: No Status: Acute (3) Hypoxia Onset Date: 08/02/17 Current Visit: No Status: Acute (4) Essential hypertension Onset Date: 08/02/17 Current Visit: No Status: Chronic (5) Hyperlipidemia Onset Date: 08/02/17 Current Visit: No Status: Chronic Qualifiers: Hyperlipidemia type: unspecified Qualified Code(s): E78.5 - Hyperlipidemia, unspecified - Plan Continue with plan of care as mentioned below: 1. Continue with IV steroids 2. Inflammatory markers are stable 3. Chest x-ray with no significant abnormalities 4. Continue O2 per protocol 5. Pulmonary consultation appreciated 6. Continue with [facility] inpatient on 3 L of oxygen at home. Possible discharge if okay with Pulmonary today 7. GI and DVT prophylaxis
[2021-06-15 11:07] VITALS: O2SAT 93
[2021-06-15 16:47] VITALS: BP 142/75; TEMP 97.9
--- NOTE | 2021-06-15 17:04 | P.DS ---
Discharge Date: 06/15/21 Primary Care Provider: Kalyan Disposition: ROUTINE DISCHARGE Discharge Condition: GOOD Reason for Admission: pneumonia, copd exacerbation - Problems (1) 2019 novel coronavirus-infected pneumonia (NCIP) Current Visit: Yes Status: Acute (2) COPD exacerbation Onset Date: 08/02/17 Current Visit: No Status: Acute (3) Hypoxia Onset Date: 08/02/17 Current Visit: No Status: Acute (4) Essential hypertension Onset Date: 08/02/17 Current Visit: No Status: Chronic (5) Hyperlipidemia Onset Date: 08/02/17 Current Visit: No Status: Chronic Qualifiers: Hyperlipidemia type: unspecified Qualified Code(s): E78.5 - Hyperlipidemia, unspecified Brief History of Present Illness: Mr. Flores is a 76 yo M with COPD, HTN, HLD, history of bladder cancer who presents with SOB, ROJAS and fever. He went to preop yesterday for heart cath next week, and he noted at that time that he was extremely fatigued. He is on 2L of home O2, and has not had to increase his O2 needs. Has not had to increase inhaler use. Reports anorexia and decreased fluid intake. Denies cough, nausea, vomiting, diarrhea. He tested positive for COVID on 05/26/21. He says his symptoms were bad from 05/21-05/24 and then he began to feel better. WBC 14.1 procal 0.08. Vital Signs/Physical Exam: Temp Pulse Resp BP Pulse Ox 97.9 F 72 14 142/75 H 92 06/15/21 16:00 06/15/21 16:00 06/15/21 16:00 06/15/21 16:00 06/15/21 16:00 Laboratory Data at Discharge: WBC 9.80 K/uL (4.3-10.9) D 06/14/21 06:16 Hgb 13.9 g/dL (13.6-17.9) 06/14/21 06:16 Hct 40.0 % (39.6-49.0) 06/14/21 06:16 Plt Count 361 K/uL (152-406) 06/14/21 06:16 PT 12.5 SECONDS (9.5-12.5) 06/13/21 18:56 INR 1.09 06/13/21 18:56 Sodium 141 mmol/L (136-145) 06/14/21 06:16 Potassium 3.8 mmol/L (3.5-5.1) 06/14/21 06:16 BUN 19 mg/dL (7-18) H 06/14/21 06:16 Creatinine 1.04 mg/dL (0.55-1.3) 06/14/21 06:16 Glucose 198 mg/dL (74-106) H 06/14/21 06:16 Phosphorus 2.6 mg/dL (2.5-4.9) 06/14/21 06:16 Magnesium 2.5 mg/dL (1.8-2.4) H D 06/14/21 06:16 Total Bilirubin 0.5 mg/dL (0.2-1.0) 06/14/21 06:16 AST 14 U/L (15-37) L 06/14/21 06:16 ALT 32 U/L (12-78) 06/14/21 06:16 Alkaline Phosphatase 101 U/L (45-117) 06/14/21 06:16 Triglycerides 55 mg/dL (<150) 06/14/21 06:16 Cholesterol 106 mg/dL (<200) 06/14/21 06:16 HDL Cholesterol 44 mg/dL (40-60) 06/14/21 06:16 Cholesterol/HDL Ratio 2.41 06/14/21 06:16 Home Medications: Amlodipine [Norvasc*] 5 mg PO DAILY 06/14/21 Fluticasone/Umeclidin/Vilanter [Trelegy Ellipta 100-62.5-25] 1 each IH Q6HP PRN 06/14/21 Rosuvastatin [Crestor*] 10 mg PO BEDTIME 06/14/21 Tamsulosin [Flomax] 0.4 mg PO BEDTIME 06/14/21 predniSONE [Prednisone*] 5 mg PO BID 06/14/21 Albuterol Neb [Proventil 0.083% Neb Soln] 2.5 mg NEB Q6HP PRN #60 amp 06/15/21 Benzonatate [Tessalon Perle*] 100 mg PO TID PRN #30 cap 06/15/21 Fluticasone [Flonase 50MCG Nasal [place]*] 1 sprays GAIL DAILY #1 btl 06/15/21 predniSONE [Deltasone] 20 mg PO BID #20 tab 06/15/21 New Medications: Fluticasone [Flonase 50MCG Nasal [place]*] 1 sprays GAIL DAILY #1 btl predniSONE [Deltasone] 20 mg PO BID #20 tab Albuterol Neb [Proventil 0.083% Neb Soln] 2.5 mg NEB Q6HP PRN #60 amp PRN Reason: Shortness Of Breath Benzonatate [Tessalon Perle*] 100 mg PO TID PRN #30 cap PRN Reason: Cough Physician Discharge Instructions: OK TO DC IV AND DC HOME FOLLOW-UP WITH PRIMARY CARE PROVIDER IN 1-2 WEEKS FOLLOW-UP WITH Pulmonary and CARDIOLOGY IN 1-2 WEEKS RETURN TO THE ER IF symptoms worsen CALL or TEXT DR. GARCIA AT [phone] IF ANY QUESTIONS REGARDING HOSPITAL STAY. PLEASE CALL THE FLOOR AT [phone] IF ANY MEDICATION OR NURSING QUESTIONS. Diet: AHA Activity: Fall precautions Followup: Rigoberto Biggs MD [Primary Care Provider] -
[2021-06-16] MEDS ORDERED: Fluticasone/Umeclidin/Vilanter [Trelegy Ellipta 100-62.5-25] Blst.W.Dev IH SCH (09:00)
== END 2021-06-15 18:07 | disposition home or self-care (01) | DRG 177 ==
LOC: ER 18:04 → ERHOLD 21:37 → 3RD-ICU 23:07
PROVIDERS: ADMIT Hospitalist; ATTEND Hospitalist
DX: U07.1 COVID-19 (principal); J12.82 Pneumonia due to coronavirus disease 2019; J44.1 Chronic obstructive pulmonary disease with (acute) exacerbation; J44.0 Chronic obstructive pulmonary disease with (acute) lower respiratory infection; I10 Essential (primary) hypertension; E78.5 Hyperlipidemia, unspecified; R09.02 Hypoxemia; Z79.899 Other long term (current) drug therapy; Z79.52 Long term (current) use of systemic steroids; Z85.51 Personal history of malignant neoplasm of bladder; Z90.49 Acquired absence of other specified parts of digestive tract; Z99.81 Dependence on supplemental oxygen; Z87.891 Personal history of nicotine dependence
CPT/HCPCS: 0240U; 36415; 71045; 71275; 80048; 80053; 80061; 80076; 81003; 81015; 82728; 83605; 83735; 83880; 84100; 84145; 84439; 84443; 84484; 85025; 85610; 86140; 87040; 87086; 87088; 93005; 94640; 94760; 99285; J0456; J1650; J2920; J2930; J3475; J7050; Q9967

== ENCOUNTER 2021-07-15 09:30 | Day surgery (SDC) | payer OTHER, BC ==
[2021-07-09 13:09] LABS: Absolute Lymphocytes (CBC) 1.1 K/uL (0.7-4.9); Hematocrit 46.9 % (39.6-49.0); MPV 8.1 fL (7.6-11.3); RBC Red Blood Cell Count 5.09 M/uL (4.33-5.43)
--- NOTE | 2021-07-09 13:14 | RAD REPORT ---
EXAM DESCRIPTION: RAD - Chest Pa And Lat (2 Views) - 07/09/2021 1:08 pm CLINICAL HISTORY: Pre Op Chest pain. COMPARISON: Chest Single View dated 06/15/2021; Chest Single View dated 06/13/2021; Chest Pa And Lat ( 2 Views) dated 06/12/2021; Chest Single View dated 03/22/2019 FINDINGS: Prominent hyperexpanded lungs noted compatible with COPD. Mild linear atelectasis or scarr ing is present in both lung bases. The heart is normal in size. No displaced fractures. IMPRESSION: Prominent diffuse COPD. The USPSTF recommends annual screening for lung cancer with low-dose CT (LDCT) in adults aged 50 to 8 0 years who have a 20 pack-year smoking history and currently smoke or have quit within the past 15 y ears.
[2021-07-09 13:20] LABS: Protime INR 0.9
[2021-07-09 13:27] LABS: Potassium 3.7 mmol/L (3.5-5.1)
[~2021-07-15 09:30] MED LIST: HEPA 1000U/500MLS 1,000 UNIT/500 ML BAG IV ONE; LIDOCAINE 1% 20 ML MDV ONE; NA CHLORIDE 0.9% 500 ML ONE
[2021-07-15] MEDS ORDERED: HEPA 1000U/500MLS 1,000 UNIT/500 ML BAG IV ONE (09:54)
[2021-07-15] MEDS ORDERED: MIDAZOLAM HCL 2 MG/2 ML INJ ONE (10:02)
[2021-07-15] MEDS ORDERED: ATROPINE SULF 1 MG/10 ML SYR IV ONE (10:03)
[2021-07-15] MEDS ORDERED: FENTANYL CITR 100 MCG/2 ML ONE (10:03)
[2021-07-15] MEDS ORDERED: NA CHLORIDE 0.9% 0 ML ONE (10:03)
[2021-07-15 11:07] VITALS: TEMP 97
--- NOTE | 2021-07-15 11:20 | OP ---
Date of Procedure: 07/15/2021 Surgeon: Austin Guzman MD Director Of Tax Services: [place]. Procedure: Abdominal angiogram. Indication: Abdominal aortic aneurysm. Mr. Flores is 76, history of hypertension, dyslipidemia, enla rging abdominal aortic aneurysm by ultrasound. Procedure In Detail: Brought to the clinical laboratory director today for abdominal angiogram. He was prepped and drap ed in the routine sterile fashion. Given Versed and fentanyl for sedation. A 6-Wallisian sheath introd uced in the right common femoral artery successfully using Seldinger technique and 10 cc of Xylocaine . A pigtail catheter was inserted 6-Wallisian above the renals and in the proximal mid aorta. 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 6-Wallisian catheters were used. No complications. Blood loss was 5 cc. [employer] was used to close the case. The patient will remain in the hospital for 2 hours of bedrest. We will arrange for followup with Vascular Surgery. Total conscious sedation 30 minutes. Postoperative Diagnosis: Abdominal aortic aneurysm. Plan: For possible EVAR. OSMAN/RADHA Voice ID: [id number] Report ID: [id number]
[2021-07-15 12:42] VITALS: BP 125/73; O2SAT 94
== END 2021-07-15 12:35 | disposition home or self-care (01) ==
LOC: CCL 09:30
DX: I71.4 Abdominal aortic aneurysm, without rupture (principal); I70.202 Unspecified atherosclerosis of native arteries of extremities, left leg; I10 Essential (primary) hypertension; E78.5 Hyperlipidemia, unspecified
CPT/HCPCS: 93005; 85025; 80048; 36415; 85610; 85730; 71046; 36200; 75625; C1893; J2250; J3010; J7040; J1644 ×2; J0583

== ENCOUNTER 2022-07-08 15:32 | Inpatient (IN) | payer OTHER, BC ==
--- OUTSIDE RECORDS SUMMARY | 2022-07-08 15:38 | XMS REPORT | Continuity of Care Document ---
:1945 Author Organization [facility] t Address [address] [place] [address] [address]. [address] [place] [address] Care Team Providers Name Role Phone RICHA BRANTLEY Primary Care Physician Unavailable RUSULA YANG Attending Clinician Unavailable BERNARD TELLO Attending Clinician Unavailable Ursula Yang MD Attending Clinician Ursula Yang MD Attending Clinician Ap Thomas MD Attending Clinician Bernard Tello MD Attending Clinician URSULA YANG Attending Clinician Unavailable 1, [facility] Room Attending Clinician Unavailable KEYON NORTH Attending Clinician Unavailable Karon Garcia MD Attending Clinician Unavailable KARON GARCIA Attending Clinician Unavailable Ap Thomas MD Attending Clinician Crystal Rene MD Attending Clinician [phone] Carli Bro MD Attending Clinician [phone] CARLI BRO Attending Clinician Unavailable Dennis RAY, Lilia López Attending Clinician Unavailable AP THOMAS Attending Clinician Unavailable Karon Garcia MD Attending Clinician AP THOMAS Admitting Clinician Unavailable Payers Payer Name Policy Type Policy Number Effective Date Expiration Date S ource MEDICARE A B [id number] 2008 00:00:00 [place] [id number] 2018 OS 00:00:00 MEDICARE PART A \T\ [id number] B - MEDICARE MEDICARE SUPPLEMENT [id number] 2016 - BCBS 00:00:00 AARP MCR ADVANTAGE [id number] [facility] Problems Condition Condition Condition Status Onset Resolution Last Treating Co mments Source Name Details Category Date Date Treatment Clinician Date Urinary Urinary Disease Active 2021-07 [facility] tract tract 2-08 [place] infection infection 00:00: of without without 00 Medicin hematuria hematuria e Status Status Disease Active [facility] post post 3-03 College endovascul endovascul 00:00: of ar ar 00 Medicin aneurysm aneurysm e repair repair (EVAR) (EVAR) Status Status Disease Active [facility] post post 2-08 [facility] endovascul endovascul 00:00: Me dical ar ar 00 Center aneurysm aneurysm repair repair (EVAR) (EVAR) AAA AAA Disease Active [facility] (abdominal (abdominal 1-20 [facility] llege 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:00: of aneurysm) aneurysm) 00 Medi jeffery without without e rupture rupture Benign Benign Disease Active [facility] non-nodula non-nodula 3-09 Co llege r r 00:00: of prostatic prostatic 00 Medi jeffery hyperplasi hyperplasi e a with a with lower lower urinary urinary tract tract symptoms symptoms Benign Benign Disease Active [facility] non-nodula non-nodula 3-09 Co llege r r 00:00: of prostatic prostatic 00 Medi jeffery hyperplasi hyperplasi e a with a with lower lower urinary urinary tract tract symptoms symptoms Malignant Malignant Disease Active 2015-07 [facility] neoplasm neoplasm 2-15 Colleg e of of 00:00: of posterior posterior 00 Medi jeffery wall of wall of e urinary urinary bladder bladder Hematuria Hematuria Disease Active [facility] 7-21 [facility] 00:00: of 00 Medicin e Essential Essential Disease Active [facility] hypertensi hypertensi 7- Co llege on on 00:00: of 00 Medicin e Hyperchole Hyperchole Disease Active [facility] steremia steremia 7- Colleg e 00:00: of 00 Medicin e Bladder Bladder Disease Active [facility] mass mass 7-21 College 00:00: of 00 Medicin e Allergies, Adverse Reactions, Alerts Allergy Allergy Status Severity Reaction(s) Onset Inactive Treating Comm ents Source Name Type Date Date Clinician ADHESIVE Allergy Active Low [facility] Adhesive Propensi Active Rash [facility] adverse 00:00: Medical reaction 00 Center s Adhesive Propensi Active Rash [facility] adverse 00:00: Medical reaction 00 Center s Family History Family Member Diagnosis Comments Start Date Stop Date Source Natural father Pancreatic cancer [facility] Natural mother No Known Problem [facility] Social History Social Habit Start Date Stop Date Quantity Comments Source History of tobacco Cigarette Smoker [facility] use of Medicine History SDME [facility] Alcohol Frequency Medical Center History SDOH [facility] Alcohol Std Drinks Medica [facility] History SDME [facility] Alcohol Binge Medical [address] Exposure to 2022-06-02 2022-06-12 Not sure [facility] Lexis byers SARS-CoV-2 (event) 00:00:00 07:42:00 of [facility] iciky Cigarettes smoked 2022-02-19 2022-02-19 [facility] current (pack per 00:00:00 00:00:00 [facility] day) - Reported Cigarette 2022-02-19 2022-02-19 [facility] pack-years 00:00:00 00:00:00 of Medicine Alcohol intake 2021-08-20 2021-08-20 [facility] (finding) History SDOH 2021-08-19 2021-08-19 2-3x/week, [address] [facility] Alcohol Comment 00:00:00 00:00:00 beers on average [facility] Tobacco use and 2016-02-14 2016-02-[address] [facility] exposure 00:00:00 00:00:00 Medical Center Tobacco Comment 2016-02-14 2016-02-[address] [facility] 00:00:00 00:00:00 Medical Center Sex [birth year] [facility] 00:00:00 00:00:00 Medical Center Smoking Status Start Date Stop Date Source Former smoker 2016-02-14 00:00:00 2016-02-14 00:00:00 [facility] Medications Ordered Filled Start Stop Current Ordering Indication Dosage Frequency Signature Comments Components Source Medication Medication Date Date Medication? Clinician (SIG) Name Name rosuvastati 2021-07 Yes 10mg Take 10 mg [facility] n (CRESTOR) 2-08 by mouth [facility] 10 MG 09:53: daily. of tablet 32 Medicin e sulfamethox 2021-07 Yes [id number] 1{tbl} Take 1 [facility] azole-trime 2-08 Tablet by [facility] thoprim 00:00: mouth two of (BACTRIM 00 times Medicin DS) 800-160 daily. e MG per tablet rosuvastati 2021-07 Yes 10mg Take 10 mg [facility] n (CRESTOR) 1-10 by mouth [facility] 10 MG 08:59: daily. of tablet 55 Medicin e predniSONE 2021-07 Yes [id number] 10mg Take 1 [facility] (DELTASONE) 1-07 Tablet by [facility] 10 MG 00:00: mouth of tablet 00 daily. Medicin e predniSONE 2021-07 Yes [id number] 10mg Take 1 [facility] (DELTASONE) 1-07 Tablet by Col [facility]ge 10 MG 00:00: mouth of tablet 00 daily. Medicin e Fluticasone 2021-07 Yes [id number] 1{puff} Inhale 1 [facility] -Umeclidin- 0-28 Puff by Colle ge [facility] 00:00: mouth of (TRELEGY 00 daily. Medicin ELLIPTA) e 100-62.5-25 MCG/ACT AEPB Tamsulosin 2021-07 Yes [id number] TAKE 1 [facility] HCl 0.4 MG 0-28 CAPSULE BY [facility] CAPS 00:00: MOUTH of 00 EVERY DAY Medicin e Fluticasone 2021-07 Yes [id number] 1{puff} Inhale 1 [facility] -Umeclidin- 0-28 Puff by [facility] 00:00: mouth of (TRELEGY 00 daily. Medicin ELLIPTA) e 100-62.5-25 MCG/ACT AEPB Tamsulosin 2021-07 Yes [id number] TAKE 1 [facility] HCl 0.4 MG 0-28 CAPSULE BY [facility] CAPS 00:00: MOUTH of 00 EVERY DAY Medicin e rosuvastati Yes 10mg Take 10 mg [facility] (CRESTOR) 9-14 by mouth [facility] 10 MG 09:30: daily. of tablet 35 Medicin e albuterol Yes INHALE 2 [facility] (90 9-07 PUFFS BY [place] base) 00:00: MOUTH 4 of mcg/act 00 TIMES A Medicin inhaler DAY e NEEDED albuterol Yes INHALE 2 [facility] (90 9-07 PUFFS BY [place] base) 00:00: MOUTH 4 of mcg/act 00 TIMES A Medicin inhaler DAY e NEEDED albuterol Yes INHALE 2 [facility] (90 9-07 PUFFS BY [place] base) 00:00: MOUTH 4 of mcg/act 00 TIMES A Medicin inhaler DAY e NEEDED Fluticasone Yes [id number] 1{puff} Inhale 1 [facility] -Umeclidin- 9-06 Puff by Melissa Bunch 00:00: mouth of (TRELEGY 00 daily. Medicin ELLIPTA) e 100-62.5-25 MCG/INH AEPB rosuvastati Yes 10mg Take 10 mg [facility] (CRESTOR) 8-25 by mouth [facility] 10 MG 09:15: daily. of tablet 47 Medicin e rosuvastati Yes 10mg Take 10 mg [facility] (CRESTOR) 8-11 by mouth [facility] 10 MG 08:52: daily. of tablet 29 Medicin e rosuvastati Yes 10mg Take 10 mg [facility] n (CRESTOR) 8-11 by mouth [facility] 10 MG 08:52: daily. of tablet 29 Medicin e sulfamethox Yes [id number] 1{tbl} Take 1 [facility] azole-trime 8-11 Tablet by [facility] thoprim 00:00: mouth two of (BACTRIM 00 times Medicin DS) 800-160 daily. For e MG per UTI tablet sulfamethox Yes [id number] 1{tbl} Take 1 [facility] azole-trime 8-11 Tablet by [facility] thoprim 00:00: mouth two of (BACTRIM 00 times Medicin DS) 800-160 daily. For e MG per UTI tablet sulfamethox 2021-0 2- No [id number] 1{tbl} Take 1 [facility] azole-trime 8-11 09-14 Tablet by Co llege thoprim 00:00: 00:00 mouth two of (BACTRIM 00 :00 times Medicin DS) 800-160 daily. For e MG per UTI tablet predniSONE 2021-0 Yes [id number] 10mg Take 1 [facility] (DELTASONE) 4-21 Tablet by Col [facility]ge 10 MG 00:00: mouth of tablet 00 daily. Medicin e Fluticasone 2021-0 Yes [id number] 1{puff} Inhale 1 [facility] -Umeclidin- 4-21 Puff by [facility] 00:00: mouth of (TRELEGY 00 daily. Medicin ELLIPTA) e 100-62.5-25 MCG/INH AEPB predniSONE 2021-0 Yes [id number] 10mg Take 1 [facility] (DELTASONE) 4-21 Tablet by [facility]ge 10 MG 00:00: mouth of tablet 00 daily. Medicin e Fluticasone 2021-0 Yes [id number] 1{puff} Inhale 1 [facility] -Umeclidin- 4-21 Puff by [facility] 00:00: mouth of (TRELEGY 00 daily. Medicin ELLIPTA) e 100-62.5-25 MCG/INH AEPB predniSONE 2021-0 Yes [id number] 10mg Take 1 [facility] (DELTASONE) 4-21 Tablet by [facility]ge 10 MG 00:00: mouth of tablet 00 daily. Medicin e Fluticasone 2-0 Yes [id number] 1{puff} Inhale 1 [facility] -Umeclidin- 4-21 Puff by [facility] 00:00: mouth of (TRELEGY 00 daily. Medicin ELLIPTA) e 100-62.5-25 MCG/INH AEPB predniSONE 2-0 Yes [id number] 10mg Take 1 [facility] (DELTASONE) 4-21 Tablet by Col [facility]ge 10 MG 00:00: mouth of tablet 00 daily. Medicin e rosuvastati 0 Yes 10mg Take 10 mg [facility] n (CRESTOR) 4-05 by mouth [facility] 10 MG 13:50: daily. of tablet 06 Medicin e rosuvastati 0 Yes 10mg Take 10 mg [facility] n (CRESTOR) 3-02 by mouth [facility] 10 MG 09:20: daily. of tablet 05 Medicin e TRELEGY 2021-0 Yes [id number] INHALE 1 [facility] ELLIPTA 2-23 PUFF BY [place] 100-62.525 00:00: MOUTH of MCG/INH 00 EVERY DAY Medicin AEPB e TRELEGY 0 Yes [id number] INHALE 1 [facility] ELLIPTA 2-23 PUFF BY [place] 100-62.5 00:00: MOUTH of MCG/INH 00 EVERY DAY Medicin AEPB e tamsulosin 0 Yes .4mg QD Take 0.[address] [facility] (FLOMAX) 2-10 mg by [facility] 0.4 mg Cap 11:20: mouth Medica l 24 hr 28 daily. Center capsule aspirin 81 0 Yes 81mg QD Take [address] [facility] EC 2-10 by mouth [facility] tablet 11:20: daily. Medical 28 Center ALPRAZolam 0 Yes .25mg Take 0.[address] (XANAX) 2-10 mg by [facility] 0.25 MG 11:20: mouth Medical tablet 28 daily as Center needed for Anxiety. tamsulosin 0 Yes .4mg QD Take 0.[address] [facility] (FLOMAX) 2-10 mg by [facility] 0.4 mg Cap 11:20: mouth Medica l 24 hr 28 daily. Center capsule aspirin 81 0 Yes 81mg QD Take [address] MG EC 2-10 by mouth [facility] tablet 11:20: daily. Medical 28 Center ALPRAZolam 0 Yes .25mg Take 0.[address] (XANAX) 2-10 mg by [facility] 0.25 MG 11:20: mouth Medical tablet 28 daily as Center needed for Anxiety. tamsulosin 0 Yes .4mg QD Take 0.[address] [facility] (FLOMAX) 2-10 mg by [facility] 0.4 mg Cap 11:20: mouth Medica l 24 hr 28 daily. Center capsule aspirin 81 0 Yes 81mg QD Take [address] MG EC 2-10 by mouth [facility] tablet 11:20: daily. Medical 28 Center ALPRAZolam 0 Yes .25mg Take 0.[address] (XANAX) 2-10 mg by [facility] 0.25 MG 11:20: mouth Medical tablet 28 daily as Center needed for Anxiety. tamsulosin 0 Yes .4mg QD Take 0.[address] [facility] [facility] (FLOMAX) 2-10 mg by [facility] 0.4 mg Cap 11:20: mouth Medica l 24 hr 28 daily. Center capsule aspirin 81 0 Yes 81mg QD Take [address] MG EC 2-10 by mouth [facility] tablet 11:20: daily. Medical 28 Center ALPRAZolam Yes .25mg Take 0.[address] (XANAX) 2-10 mg by [facility] 0.25 MG 11:20: mouth Medical tablet 28 daily as Center needed for Anxiety. amLODIPine Yes 5mg QD Take [address] (NORVASC) 5 2-09 by mouth [facility] MG tablet 11:20: daily. Medica l 55 Center albuterol Yes 1{puff} Inhale [address] HFA 2-09 puff by [facility] (VENTOLIN 11:20: mouth via Med ical HFA) 90 55 inhaler Center mcg/actuati every 6 on inhaler (six) hours as needed for Wheezing. rosuvastati Yes 10mg QD Take [address] [facility] n (CRESTOR) 2-09 by mouth Luke s 10 MG 11:20: daily. Medical tablet 55 Center amLODIPine 0 Yes 5mg QD Take [address] (NORVASC) 5 2-09 by mouth Luke s MG tablet 11:20: daily. Medica l 55 Center albuterol 0 Yes 1{puff} Inhale [address] HFA 2-09 puff by [facility] (VENTOLIN 11:20: mouth via Med ical HFA) 90 55 inhaler Center mcg/actuati every 6 on inhaler (six) hours as needed for Wheezing. rosuvastati 2022-0 Yes 10mg QD Take [address] [facility] n (CRESTOR) 2-09 by mouth Luke s 10 MG 11:20: daily. Medical tablet 55 Center amLODIPine 0 Yes 5mg QD Take [address] (NORVASC) 5 2-09 by mouth Luke s MG tablet 11:20: daily. Medica l [address] [place] [address] albuterol 0 Yes 1{puff} Inhale [address] HFA 2-09 puff by [facility] (VENTOLIN 11:20: mouth via Med ical HFA) 90 55 inhaler Center mcg/actuati every 6 on inhaler (six) hours as needed for Wheezing. rosuvastati 0 Yes 10mg QD Take [address] [facility] n (CRESTOR) 2-09 by mouth Luke s 10 MG 11:20: daily. Medical tablet 55 Center albuterol Yes 1{puff} Inhale [address] HFA 2-09 puff by [facility] (VENTOLIN 11:20: mouth via Med ical HFA) 90 55 inhaler Center mcg/actuati every 6 on inhaler (six) hours as needed for Wheezing. rosuvastati 0 Yes 10mg QD Take [address] [facility] n (CRESTOR) 2-09 by mouth Luke s 10 MG 11:20: daily. Medical tablet 55 Center amLODIPine Yes 5mg QD Take [address] (NORVASC) 5 2-09 by mouth Luke s MG tablet 11:20: daily. Medica l [address] [place] [address] fluticasone 2021- No 1{puff} Inhale [address] -salmeterol 2-08 02-08 puff by Luke s (ADVAIR) 11:57: 00:00 mouth via Med ical 100-50 24 :00 inhaler Center mcg/dose every 12 diskus (twelve) inhaler hours. fluticasone 2021- No 1{puff} Inhale [address] [facility] -salmeterol 2-08 02-08 puff by Luke [facility] (ADVAIR) 11:57: 00:00 mouth via Med ical 100-50 24 :00 inhaler Center mcg/dose every 12 diskus (twelve) inhaler hours. fluticasone 2021- No 1{puff} Inhale [address] -salmeterol 2- 02-08 puff by Luke [facility] (ADVAIR) 11:57: 00:00 mouth via Med ical 100-50 24 :00 inhaler Center mcg/dose every 12 diskus (twelve) inhaler hours. fluticasone 2021- No 1{puff} Inhale [address] -salmeterol 2- 02-08 puff by Luke [facility] (ADVAIR) 11:57: 00:00 mouth via Med ical 100-50 24 :00 inhaler Center mcg/dose every 12 diskus (twelve) inhaler hours. atorvastati 2021- No 20mg QD Take [address] [facility] [facility] n (LIPITOR) 08-19- by mouth [facility] 20 MG 05:59: 00:00 daily. Medical tablet 01 :00 [place] atorvastati 2021- No 20mg QD Take [address] [facility] n (LIPITOR) 08-19- by mouth [facility] 20 MG 05:59: 00:00 daily. Medical tablet 01 :00 [place] atorvastati 2021- No 20mg QD Take [address] [facility] n (LIPITOR) 08-19-08 by mouth [facility] 20 MG 05:59: 00:00 daily. Medical tablet 01 :00 [place] atorvastati 2021- No 20mg QD Take [address] [facility] n (LIPITOR) 08-19-08 by mouth [facility] 20 MG 05:59: 00:00 daily. Medical tablet 01 :00 [place] rosuvastati Yes 10mg Take 10 mg [facility] (CRESTOR) 1-19 by mouth [facility] 10 MG 13:23: daily. of tablet 26 Medicin e fluticasone 2020-07 Yes 50{spra Inhale 50 [facility] (FLONASE) 2-05 y} Sprays as Colle ge 50 MCG/ACT 00:00: needed. of nasal spray 00 Medicin e fluticasone 2020-07 Yes 50{spra Inhale 50 [facility] (FLONASE) 2-05 y} Sprays as Colle ge 50 MCG/ACT 00:00: needed. of nasal spray 00 Medicin e fluticasone 2020-07 Yes 50{spra Inhale 50 [facility] (FLONASE) 2-05 y} Sprays as Colle ge 50 MCG/ACT 00:00: needed. of nasal spray 00 Medicin e fluticasone 2020-07- No 50{spra Inhale 50 [facility] (FLONASE) 2-05 08-02 y} Sprays as [facility] 50 MCG/ACT 00:00: 00:00 needed. of nasal spray 00 :00 Medicin e alprazolam 2020-07 Yes .25mg Take 0.25 [facility] (XANAX) 2-02 mg by [facility] 0.25 MG 00:00: mouth as of tablet 00 needed. Medicin Only for e hospital/ clinic visits alprazolam 2020-07 Yes .25mg Take 0.25 [facility] (XANAX) 2-02 mg by [facility] 0.25 MG 00:00: mouth as of tablet 00 needed. Medicin Only for e hospital/ clinic visits alprazolam 2020-07 Yes .25mg Take 0.25 [facility] (XANAX) 2-02 mg by College 0.25 MG 00:00: mouth as of tablet 00 needed. Medicin Only for e hospital/ clinic visits alprazolam 2020-07- No .25mg Take 0.25 [facility] (XANAX) 2-02 08-02 mg by College 0.25 MG 00:00: 00:00 mouth as of tablet 00 :00 needed. Medicin Only for e hospital/ clinic visits DECARA 625 2020-07 Yes [facility] (07-20 [facility]) CAPS 00:00: of 00 Medicin e DECARA 625 2020-07 Yes [facility] (07-20 [facility]) CAPS 00:00: of 00 Medicin e DECARA 625 2020-07 Yes [facility] (07-20 [facility]) CAPS 00:00: of 00 Medicin e DECARA 625 2020-07- No [facility] (07-20 [facility]) CAPS 00:00: 00:00 of 00 :00 Medicin e predniSONE 2020-07 Yes 1{tbl} QD Take [address] [facility] (DELTASONE) 1-08 tablet by [facility] 10 MG 00:00: mouth Medical tablet 00 daily. [place] predniSONE 2020-07 Yes 1{tbl} QD Take [address] [facility] (DELTASONE) 1-08 tablet by [facility] 10 MG 00:00: mouth Medical tablet 00 daily. [place] predniSONE 2020-07 Yes 1{tbl} QD Take [address] [facility] (DELTASONE) 1-08 tablet by [facility] 10 MG 00:00: mouth Medical tablet 00 daily. [place] predniSONE 2020-07 Yes [id number] TAKE 1 [facility] (DELTASONE) 1-08 TABLET BY Col [facility] 10 MG 00:00: MOUTH of tablet 00 EVERY DAY Medicin e predniSONE 2020-07 Yes [id number] TAKE 1 [facility] (DELTASONE) 1-08 TABLET BY Col [facility] 10 MG 00:00: MOUTH of tablet 00 EVERY DAY Medicin e predniSONE 2020-07 Yes [id number] TAKE 1 [facility] (DELTASONE) 1-08 TABLET BY Col [facility]ge 10 MG 00:00: MOUTH of tablet 00 EVERY DAY Medicin e predniSONE 2020-07 Yes 1{tbl} QD Take [address] [facility] (DELTASONE) 1-08 tablet by [facility] 10 MG 00:00: mouth Medical tablet 00 daily. [place] fluticasone 2020-07 Yes 1{puff} QD Inhale [address] [facility] -umeclidin- 1-04 puff by [facility] 00:00: mouth via Medi rosy (Trelegy 00 inhaler Center Ellipta) daily. 100-62.5-25 mcg DsDv fluticasone 2020-07 Yes 1{puff} QD Inhale [address] [facility] -umeclidin- 1-04 puff by [facility] 00:00: mouth via Medi rosy (Trelegy 00 inhaler Center Ellipta) daily. 100-62.5-25 mcg DsDv fluticasone 2020-07 Yes 1{puff} QD Inhale [address] [facility] -umeclidin- 1-04 puff by [facility] 00:00: mouth via Medi rosy (Trelegy 00 inhaler Center Ellipta) daily. 100-62.5-25 mcg DsDv TRELEGY 2020-07 Yes [id number] INHALE 1 [facility] ELLIPTA 1-04 PUFF BY [place] 100-62.5-25 00:00: MOUTH of MCG/INH 00 DAILY Medicin AEPB e fluticasone 2020-07 Yes 1{puff} QD Inhale [address] [facility] [address] -umeclidin- 1-04 puff by [facility] 00:00: mouth via Medi rosy (Trelegy 00 inhaler Center Ellipta) daily. 100-62.5-25 mcg DsDv albuterol Yes INHALE 2 [facility] (90 8-12 PUFFS BY [facility] base) 00:00: MOUTH 4 of mcg/act 00 TIMES A Medicin inhaler DAY e NEEDED albuterol Yes INHALE 2 [facility] (90 8-12 PUFFS BY [facility] base) 00:00: MOUTH 4 of mcg/act 00 TIMES A Medicin inhaler DAY e NEEDED albuterol Yes INHALE 2 [facility] (90 8-12 PUFFS BY [facility] base) 00:00: MOUTH 4 of mcg/act 00 TIMES A Medicin inhaler DAY e NEEDED albuterol Yes INHALE 2 [facility] (90 8-12 PUFFS BY [facility] base) 00:00: MOUTH 4 of mcg/act 00 TIMES A Medicin inhaler DAY e NEEDED albuterol 0 Yes INHALE 2 [facility] (90 8-12 PUFFS BY [facility] base) 00:00: MOUTH 4 of mcg/act 00 TIMES A Medicin inhaler DAY e NEEDED albuterol 0 Yes INHALE 2 [facility] (90 8-12 PUFFS BY [facility] base) 00:00: MOUTH 4 of mcg/act 00 TIMES A Medicin inhaler DAY e NEEDED Tamsulosin 2020-0 Yes [id number] TAKE 1 [facility] HCl 0.4 MG 8-28 CAPSULE BY Col lege CAPS 00:00: MOUTH of 00 EVERY DAY Medicin e Tamsulosin 2020-0 Yes [id number] TAKE 1 [facility] HCl 0.4 MG 8-28 CAPSULE BY Col lege CAPS 00:00: MOUTH of 00 EVERY DAY Medicin e Tamsulosin 2020-0 Yes [id number] TAKE 1 [facility] HCl 0.4 MG 8-28 CAPSULE BY Col lege CAPS 00:00: MOUTH of 00 EVERY DAY Medicin e Tamsulosin 2020-0 Yes [id number] TAKE 1 [facility] HCl 0.4 MG 8-28 CAPSULE BY Col lege CAPS 00:00: MOUTH of 00 EVERY DAY Medicin e Tamsulosin 2020-0 Yes [id number] TAKE 1 [facility] HCl 0.4 MG 8-28 CAPSULE BY Col lege CAPS 00:00: MOUTH of 00 EVERY DAY Medicin e Tamsulosin 2020-0 Yes [id number] TAKE 1 [facility] HCl 0.4 MG 8-28 CAPSULE BY Col lege CAPS 00:00: MOUTH of 00 EVERY DAY Medicin e Tamsulosin 2020-0 Yes [id number] TAKE 1 [facility] HCl 0.4 MG 8-28 CAPSULE BY Col lege CAPS 00:00: MOUTH of 00 EVERY DAY Medicin e ALBUTEROL 2019-0 Yes [id number] Take by [facility] SULFATE OR 1-24 mouth. [place] 16:19: of 45 Medicin e rosuvastati 2019-0 Yes 10mg Take 10 mg [facility] n (CRESTOR) 1-24 by mouth [facility] 10 MG 16:19: daily. of tablet 45 Medicin e predniSONE 0 Yes 5mg Take 1 Tab [facility] (DELTASONE) 1-24 by mouth [facility] 5 MG tablet 00:00: daily. of 00 Medicin e Tamsulosin 2018-07 Yes [id number] TAKE 1 [facility] HCl 0.4 MG 1-26 CAPSULE BY Col lege CAPS 00:00: MOUTH of 00 EVERY DAY Medicin e ALBUTEROL 2018-07 Yes [id number] Take by [facility] SULFATE OR 0-02 mouth. [place] 18:14: of 28 Medicin e rosuvastati 2018-07 Yes 10mg Take 10 mg [facility] n (CRESTOR) 0-02 by mouth [facility] 10 MG 18:14: daily. of tablet 28 Medicin e Fluticasone 2018-07 Yes 1{puff} 1 Puff by [facility] -Umeclidin- 0-02 Inhalation [facility] 00:00: route of 100-62.5-25 00 daily. Medici n MCG/INH e AEPB Fluticasone 2018-07 Yes 1{puff} 1 Puff by [facility] -Umeclidin- 0-02 Inhalation [facility] 00:00: route of 100-62.5-25 00 daily. Medici n MCG/INH e AEPB Tamsulosin Yes [id number] TAKE ONE [facility] HCl 0.4 MG 2-05 CAPSULE BY Col lege CAPS 00:00: MOUTH of 00 EVERY DAY Medicin e predniSONE Yes [id number] [facility] (DELTASONE) 5-16 College 10 MG 00:00: of tablet 00 Medicin e predniSONE 2020- No [id number] [facility] (DELTASONE) 5-16 -24 College 10 MG 00:00: 00:00 of tablet 00 :00 Medicin e ADVAIR 2015-07 Yes [facility] DISKUS 2-19 College 250-50 00:00: of MCG/DOSE 00 Medicin inhaler e ADVAIR 2015-07 2020- No [facility] DISKUS 2-19 -24 College 250-50 00:00: 00:00 of MCG/DOSE 00 :00 Medicin inhaler e atorvastati Yes 20mg QD Take [address] [facility] [facility] (LIPITOR) 8-19 by mouth [facility] 20 MG 13:38: daily. Medical tablet 44 Center amLODIPine Yes 5mg QD Take [address] (NORVASC) 5 8-19 by mouth [facility] MG tablet 13:38: daily. Medica l 44 Center fluticasone Yes 1{puff} Inhale [address] -salmeterol 8-19 puff by [facility] (ADVAIR) 13:38: mouth via Medi rosy 100-50 44 inhaler Center mcg/dose every 12 diskus (twelve) inhaler hours. albuterol Yes 1{puff} Inhale [address] HFA 8-19 puff by [facility] (VENTOLIN 13:38: mouth via Med ical HFA) 90 44 inhaler Center mcg/actuati every 6 on inhaler (six) hours as needed for Wheezing. amlodipine Yes [id number] [facility] (NORVASC) 5 6-27 College MG tablet 00:00: of 00 Medicin e amlodipine Yes [id number] [facility] (NORVASC) 5 6-27 College MG tablet 00:00: of 00 Medicin e amlodipine Yes [id number] [facility] (NORVASC) 5 6-27 College MG tablet 00:00: of 00 Medicin e amlodipine Yes [id number] [facility] (NORVASC) 5 6-27 College MG tablet 00:00: of 00 Medicin e amlodipine Yes [id number] [facility] (NORVASC) 5 6-27 College MG tablet 00:00: of 00 Medicin e amlodipine Yes [id number] [facility] (NORVASC) 5 6-27 College MG tablet 00:00: of 00 Medicin e amlodipine Yes [id number] [facility] (NORVASC) 5 6-27 College MG tablet 00:00: of 00 Medicin e amlodipine Yes [id number] [facility] (NORVASC) 5 6-27 College MG tablet 00:00: of 00 Medicin e amlodipine Yes [id number] [facility] (NORVASC) 5 6-27 College MG tablet 00:00: of 00 Medicin e amlodipine Yes [id number] [employer] ([facility]VASC) 5 6-27 [employer] MG tablet 00:00: of 00 Medicin e amlodipine Yes [id number] [employer] ([employer]) 5 6-27 [employer] MG tablet 00:00: of 00 Medicin e Immunizations Ordered Immunization Filled Immunization Date Status Commen ts Source Name Name Pfizer SARS-CoV-2 2020-10-15 Completed [facility] Vaccination 00:00:00 of Medicine Pfizer SARS-CoV-2 2020-10-15 Completed [facility] Vaccination 00:00:00 of Medicine Pfizer SARS-CoV-2 2020-10-15 Completed [facility] Vaccination 00:00:00 of Medicine Pfizer SARS-CoV-2 2020-10-15 Completed [facility] Vaccination 00:00:00 of Medicine Pfizer SARS-CoV-2 2020-10-15 Completed [facility] Vaccination 00:00:00 of Medicine Pfizer SARS-CoV-2 2020-10-15 Completed [facility] Vaccination 00:00:00 of Medicine Pfizer SARS-CoV-2 2020-10-15 Completed [facility] Vaccination 00:00:00 of Medicine Pfizer SARS-CoV-2 2020-10-15 Completed [facility] Vaccination 00:00:00 of Medicine Pfizer SARS-CoV-2 2020-10-15 Completed [facility] Vaccination 00:00:00 of Medicine Pfizer SARS-CoV-2 2020-09-24 Completed [facility] Vaccination 00:00:00 of Medicine Pfizer SARS-CoV-2 2020-09-24 Completed [facility] Vaccination 00:00:00 of Medicine Pfizer SARS-CoV-2 2020-09-24 [facility] Pfizer SARS-CoV-2 2020-09-24 [facility] Medicine Pfizer SARS-CoV-2 2020-09-24 Completed [facility] Vaccination 00:00:00 of Medicine Pfizer SARS-CoV-2 2020-09-24 Completed [facility] Vaccination 00:00:00 of Medicine Pfizer SARS-CoV-2 2020-09-24 Completed [facility] Vaccination 00:00:00 of Medicine Pfizer SARS-CoV-2 2020-09-24 Completed [facility] Vaccination 00:00:00 of Medicine Pfizer SARS-CoV-2 2020-09-24 [facility] of Medicine Pneumococcal 2017-07-31 Completed [facility] [employer] [employer] Polys[facility] 00:00:00 of Medicin e Influenza whole 2017-07-31 Completed [facility] [employer] 00:00:00 of Medicine Pneumococcal 2017-07-31 Completed [employer] [employer] Polysaccharide 00:00:00 of Medicin e Influenza whole 2017-07-31 Completed [facility] 00:00:00 of Medicine Pneumococcal 2017-07-31 Completed [facility] [employer] [employer] Polysaccharide 00:00:00 of Medicin e Influenza whole 2017-07-31 Completed [facility] 00:00:00 of Medicine Pneumococcal 2017-07-31 Completed [facility] [employer] [employer] Polysaccharide 00:00:00 of Medicin e Pneumococcal 2017-07-31 Completed [facility] [employer] [employer] Polysaccharide 00:00:00 of Medicin e Influenza whole 2017-07-31 Completed [facility] 00:00:00 of Medicine Influenza whole 2017-07-31 Completed [facility] 00:00:00 of Medicine Pneumococcal 2017-07-31 Completed [facility] [employer] Polysaccharide 00:00:00 of Medicin e Influenza whole 2017-07-31 Completed [facility] [employer] 00:00:00 of Medicine Pneumococcal 2017-07-31 Completed [facility] [employer] Polysaccharide 00:00:00 of Medicin e Influenza whole 2017-07-31 Completed [facility] 00:00:00 of Medicine Pneumococcal 2017-07-31 Completed [facility] [employer] Polysaccharide 00:00:00 of Medicin e Influenza whole 2017-07-31 Completed [facility] 00:00:00 of Medicine Pneumococcal 2017-07-31 Completed [facility] [employer] Polysaccharide 00:00:00 of Medicin e Influenza whole 2017-07-31 Completed [facility] 00:00:00 of Medicine Pneumococcal 2017-07-31 Completed [facility] [employer] Polysaccharide 00:00:00 of Medicin e Influenza whole 2017-07-31 Completed [facility] 00:00:00 of Medicine Pneumococcal 2017-07-31 Completed [facility] Polysaccharide 00:00:00 of Medicin e Influenza whole 2017-07-31 Completed [facility] 00:00:00 of Medicine Vital Signs Vital Name Observation Time Observation Value Comments Source Systolic blood 2022-06-18 14:30:00 148 mm[Hg] [facility] Medicine Diastolic blood 2022-06-18 14:30:00 85 mm[Hg] [facility] Medicine Heart rate 2022-06-18 14:30:00 75 /min [facility] Body height 2022-06-18 14:30:00 177.8 cm [facility] Body weight 2022-06-18 14:30:00 72.576 kg [facility] BMI 2022-06-18 14:30:00 22.96 kg/m2 [facility] Heart rate 2022-05-21 15:02:00 78 /min [facility] Respiratory rate 2022-05-21 15:02:00 16 /min [facility] Body height 2022-05-21 15:02:00 182.9 cm [facility] Body weight 2022-05-21 15:02:00 72.394 kg [facility] BMI 2022-05-21 15:02:00 21.65 kg/m2 [facility] Systolic blood 2022-03-25 14:28:00 131 mm[Hg] [facility] Medicine Diastolic blood 2022-03-25 14:28:00 68 mm[Hg] [facility] Medicine Heart rate 2022-03-25 14:28:00 60 /min [facility] Medicine Respiratory rate 2022-03-25 14:28:00 16 /min [facility] Body height 2022-03-25 14:28:00 182.9 cm [facility] Body weight 2022-03-25 14:28:00 72.576 kg [facility] of Medicine BMI 2022-03-25 14:28:00 21.70 kg/m2 [facility] Systolic blood 2022-03-05 14:15:00 134 mm[Hg] [facility] pressure Medicine Diastolic blood 2022-03-05 14:15:00 73 mm[Hg] [facility] Medicine Heart rate 2022-03-05 14:15:00 77 /min [facility] Medicine Body temperature 2022-03-05 14:15:00 36.17 Katherin [facility] Respiratory rate 2022-03-05 14:15:00 20 /min [facility] Body height 2022-03-05 14:15:00 175.3 cm [facility] Body weight 2022-03-05 14:15:00 72.576 kg [facility] BMI 2022-03-05 14:15:00 23.63 kg/m2 [facility] of Medicine Systolic blood 2022-02-19 13:51:00 154 mm[Hg] [facility] Medicine Diastolic blood 2022-02-19 13:51:00 87 mm[Hg] [facility] Medicine Heart rate 2022-02-19 13:51:00 87 /min [facility] Medicine Body temperature 2022-02-19 13:51:00 36.72 Katherin [facility] Respiratory rate 2022-02-19 13:51:00 20 /min [facility] Body height 2022-02-19 13:51:00 175.3 cm [facility] of Medicine Body weight 2022-02-19 13:51:00 72.576 kg [facility] Medicine BMI 2022-02-19 13:51:00 23.63 kg/m2 [facility] Systolic blood 2022-02-10 13:07:00 145 mm[Hg] [facility] pressure Medicine Diastolic blood 2022-02-10 13:07:00 78 mm[Hg] [facility] of pressure Medicine Heart rate 2022-02-10 13:07:00 74 /min [facility] of Medicine Body temperature 2022-02-10 13:07:00 37 Katherin [facility] Body height 2022-02-10 13:07:00 175.3 cm [facility] of Medicine Body weight 2022-02-10 13:07:00 72.938 kg [facility] of Medicine BMI 2022-02-10 13:07:00 23.75 kg/m2 [facility] of Medicine Systolic blood 2021-10-14 18:50:00 143 mm[Hg] [facility] of pressure Medicine Diastolic blood 2021-10-14 18:50:00 78 mm[Hg] [facility] Medicine Heart rate 2021-10-14 18:50:00 72 /min [facility] of Medicine Body temperature 2021-10-14 18:50:00 36.11 Katherin [facility] Body height 2021-10-14 18:50:00 175.3 cm [facility] of Medicine Body weight 2021-10-14 18:50:00 70.761 kg [facility] of Medicine BMI 2021-10-14 18:50:00 23.04 kg/m2 [facility] of Medicine Systolic blood 2021-09-10 15:22:00 122 mm[Hg] [facility] pressure Medicine Diastolic blood 2021-09-10 15:22:00 77 mm[Hg] [facility] pressure Medicine Heart rate 2021-09-10 15:22:00 85 /min [facility] of Medicine Body height 2021-09-10 15:22:00 177.8 cm [facility] of Medicine Body weight 2021-09-10 15:22:00 73.029 kg [facility] of Medicine BMI 2021-09-10 15:22:00 23.10 kg/m2 [facility] of Medicine WEIGHT 2021-08-19 05:30:00 69.854 kg HEIGHT 2021-08-19 05:30:00 177.8 cm WEIGHT 2021-08-19 05:30:00 69.854 kg HEIGHT 2021-08-19 05:30:00 177.8 cm WEIGHT 2021-08-19 05:30:00 69.854 kg HEIGHT 2021-08-19 05:30:00 177.8 cm HEIGHT 2021-08-15 12:36:00 177.8 cm WEIGHT 2021-08-15 12:36:00 73.483 kg HEIGHT 2021-08-15 12:36:00 177.8 cm WEIGHT 2021-08-15 12:36:00 73.483 kg HEIGHT 2021-08-15 12:36:00 177.8 cm WEIGHT 2021-08-15 12:36:00 73.483 kg Systolic blood 2021-07-30 19:21:00 137 mm[Hg] [facility] pressure Medicine Diastolic blood 2021-07-30 19:21:00 82 mm[Hg] [facility] pressure Medicine Heart rate 2021-07-30 19:21:00 101 /min [facility] of Medicine Body height 2021-07-30 19:21:00 177.8 cm [facility] of Medicine Body weight 2021-07-30 19:21:00 73.029 kg [facility] of Medicine BMI 2021-07-30 19:21:00 23.10 kg/m2 [facility] ol[facility] of Medicine Systolic blood 2019-08-04 16:22:00 169 mm[Hg] [facility] pressure Medicine Diastolic blood 2019-08-04 16:22:00 75 mm[Hg] [facility] pressure Medicine Heart rate 2019-08-04 16:22:00 80 /min [facility] of Medicine Body temperature 2019-08-04 16:22:00 36.33 Katherin [facility] Respiratory rate 2019-08-04 16:22:00 16 /min [facility] Body height 2019-08-04 16:22:00 177.8 cm [facility] of Medicine Body weight 2019-08-04 16:22:00 77.111 kg [facility] of Medicine BMI 2019-08-04 16:22:00 24.39 kg/m2 [facility] Systolic blood 2019-04-12 18:11:00 164 mm[Hg] [facility] Medicine Diastolic blood 2019-04-12 18:11:00 81 mm[Hg] [facility] Medicine Heart rate 2019-04-12 18:11:00 82 /min [facility] Body temperature 2019-04-12 18:11:00 36.33 Katherin [facility] Respiratory rate 2019-04-12 18:11:00 16 /min [facility] Body height 2019-04-12 18:11:00 177.8 cm [facility] Body weight 2019-04-12 18:11:00 71.215 kg [facility] BMI 2019-04-12 18:11:00 22.53 kg/m2 [facility] Heart rate 2021-08-20 08:45:00 71 /min [facility] Respiratory rate 2021-08-20 08:45:00 20 /min [facility] Oxygen saturation in 2021-08-20 08:45:00 97 /min [facility] Arterial blood by Medical Ce nter Pulse oximetry Systolic blood 2021-08-20 07:00:00 133 mm[Hg] [facility] Diastolic blood 2021-08-20 07:00:00 77 mm[Hg] [facility] Body temperature 2021-08-20 07:00:00 36.5 Katherin [facility] Body height 2021-08-19 05:30:00 177.8 cm [facility] Body weight 2021-08-19 05:30:00 69.854 kg [facility] BMI 2021-08-19 05:30:00 22.10 kg/m2 [facility] Procedures Procedure Date / Time Performed Performing Clinician Sour e URINE CULTURE 2022-07-02 08:27:14 [facility] POCT URINALYSIS DIPSTICK 2022-07-02 00:00:00 [facility] POCT URINALYSIS DIPSTICK 2022-06-18 00:00:[address] [facility] [address] CHEST WITHOUT IV 2022-05-21 08:47:00 Ursula Yang [facility] POCT URINALYSIS DIPSTICK 2022-03-17 16:47:20 [facility] BLADDER WASHINGS 2022-03-17 16:47:20 [facility] CYSTOSCOPY 2022-03-17 13:45:00 [facility] CYTOLOGY, URINE 2022-03-05 09:48:07 [facility] CULTURE, 2022-02-19 09:06:09 [facility] of URINE/SENSITIVITY ON ALL Medicin e POCT URINALYSIS DIPSTICK 2022-02-19 00:00:00 [facility] POCT URINALYSIS DIPSTICK 2022-02-19 00:00:00 Bernard Tello [facility] CT CHEST WITHOUT IV 2022-02-09 10:56[facility] 2021-12-09 00:00:00 [facility] CT CHEST WITHOUT IV 2021-11-19 09:55:00 Ursula Yang [facility] CT CHEST WITHOUT IV 2021-10-10 09:02:00 Karon Garcia [facility] MAGNESIUM 2021-08-20 04:22:00 [facility] BASIC METABOLIC PANEL 2021-08-20 04:22:00 [facility] CBC (HEMOGRAM ONLY) 2021-08-20 04:22:00 [facility] BASIC METABOLIC PANEL 2021-08-19 12:31:00 [facility] MAGNESIUM 2021-08-19 12:31:00 [facility] CBC W/PLT COUNT & AUTO 2021-08-19 12:31:00 [facility] CBC W/PLT COUNT & AUTO 2021-08-19 12:31:00 Crystal Rene [facility] DIFFERENTIAL [facility] PREPARE LEUKO-REDUCED 2021-08-19 09:36:00 [facility] EVAR EXCLUSION [facility] - 2021-08-19 07:30:[address] [facility] Patricia [facility] IP PROC ONLY [facility] EVAR EXCLUSION [facility] - 2021-08-19 06:59:00 Ap Thomas [facility] IP PROC ONLY [facility] ABORH, MANUAL 2021-08-19 06:28:00 Paige Lin [facility] TYPE AND SCREEN, 2021-08-19 06:08:00 Rica Elena [facility] es AUTOMATED [facility] CARDIAC CATH REPORT - 2021-08-19 00:00:00 ProviderGumaro [facility] SCAN Scanning [facility] BASIC METABOLIC PANEL 2021-08-15 13:06:00 [facility] PROTHROMBIN TIME/INR 2021-08-15 13:06:00 [facility] CBC W/PLT COUNT & AUTO 2021-08-15 13:06:00 [facility] CBC W/PLT COUNT & AUTO 2021-08-15 13:06:00 [facility] ECG 12-LEAD 2021-08-15 13:00:36 [facility] ECG 12-LEAD 2021-08-15 13:00:36 Unknown, [facility] ECG 12-LEAD 2021-08-15 13:00:36 Unknown, H[facility] SARS-COV2/RT-PCR ([facility] & 2021-08-15 12:50:00 [facility] REF LABS) [facility] Plan of Care Planned Activity Planned Date Details Comments Source Future Scheduled 2022-09-03 CT CHEST WO CONTRAST Expected: [facility] Test 00:00:00 [code = 92571-0] 09/03/2022, of Medicine Expires: 06/03/2023 Future Scheduled 2022-08-[address] [facility] Test 00:00:00 [facility] (12+) [code = Tobacco Cessation Counseling and Screening (12+)] Future Scheduled 2022-08-[address] [facility] Test 00:00:00 [facility] (12+) [code = Tobacco Cessation Counseling and Screening (12+)] Future Scheduled 2022-08-[address] [facility] Test 00:00:00 [facility] (12+) [code = Tobacco Cessation Counseling and Screening (12+)] Future Scheduled 2022-06-18 TETANUS SHOT (ADULT) [employer] Test 10:36:23 [code = TETANUS SHOT of Medi cine (ADULT)] Future Scheduled 2022-06-18 Hepatitis C screening [employer] Test 10:36:23 (procedure) [code = of Medic ine [id number]] Future Scheduled 2022-06-18 ZOSTER VACCINE (1 of [employer] Test 10:36:23 2) [code = ZOSTER of Medicin e VACCINE (1 of 2)] Future Scheduled 2022-06-18 MEDICARE AWV [facility] Test 10:36:23 (Initial) [code = of Medicin e MEDICARE AWV (Initial)] Future Scheduled 2022-06-18 Pneumococcal 65+ (2 - [employer] Test 10:36:23 PCV) [code = of Medicine Pneumococcal 65+ (2 - PCV)] Future Scheduled 2022-06-18 COVID-19 Vaccine (3 - [employer] Test 10:36:23 Booster for Pfizer of Medici ne series) [code = COVID-19 Vaccine (3 - Booster for Pfizer series)] Future Scheduled 2022-06-18 FLU VACCINE > 6 [facility] Test 10:36:23 MONTHS [code = FLU of Medici ne VACCINE > 6 MONTHS] Future Scheduled 2022-06-18 FALL SCREEN [code = [employer] Test 10:36:23 FALL SCREEN] of Medicine Future Scheduled 2022-06-03 TETANUS SHOT (ADULT) [employer] Test 13:02:16 [code = TETANUS SHOT of Medi cine (ADULT)] Future Scheduled 2022-06-03 Hepatitis C screening [employer] Test 13:02:16 (procedure) [code = of Medic ine [id number]] Future Scheduled 2022-06-03 ZOSTER VACCINE (1 of [employer] Test 13:02:16 2) [code = ZOSTER of Medicin e VACCINE (1 of 2)] Future Scheduled 2022-06-03 MEDICARE AWV [facility] [employer] Test 13:02:16 (Initial) [code = of Medicin e MEDICARE AWV (Initial)] Future Scheduled 2022-06-03 Pneumococcal 65+ (2 - [employer] Test 13:02:16 PCV) [code = of Medicine Pneumococcal 65+ (2 - PCV)] Future Scheduled 2022-06-03 COVID-19 Vaccine (3 - [employer] Test 13:02:16 Booster for Pfizer of Medici ne series) [code = COVID-19 Vaccine (3 - Booster for Pfizer series)] Future Scheduled 2022-06-03 FLU VACCINE > 6 [facility] Test 13:02:16 MONTHS [code = FLU of Medici ne VACCINE > 6 MONTHS] Future Scheduled 2022-06-03 FALL SCREEN [code = [employer] Test 13:02:16 FALL SCREEN] of Medicine Future Scheduled 2022-04-08 TETANUS SHOT (ADULT) [employer] Test 10:01:59 [code = TETANUS SHOT of Medi cine (ADULT)] Future Scheduled 2022-04-08 Hepatitis C screening [employer] Test 10:01:59 (procedure) [code = of Medic ine [id number]] Future Scheduled 2022-04-08 ZOSTER VACCINE (1 of [employer] Test 10:01:59 2) [code = ZOSTER of Medicin e VACCINE (1 of 2)] Future Scheduled 2022-04-08 MEDICARE AWV [facility] [facility] 10:01:59 (Initial) [code = of Medicin e MEDICARE AWV (Initial)] Future Scheduled 2022-04-08 Pneumococcal 65+ (2 - [employer] Test 10:01:59 PCV) [code = of Medicine Pneumococcal 65+ (2 - PCV)] Future Scheduled 2022-04-08 COVID-19 Vaccine (3 - [employer] Test 10:01:59 Booster for Pfizer of Medici ne series) [code = COVID-19 Vaccine (3 - Booster for Pfizer series)] Future Scheduled 2022-04-08 FLU VACCINE > 6 [facility] Test 10:01:59 MONTHS [code = FLU of Medici ne VACCINE > 6 MONTHS] Future Scheduled 2022-04-08 FALL SCREEN [code = [employer] Test 10:01:59 FALL SCREEN] of Medicine Future Scheduled 2022-03-25 US 1 Occurrences [facility] Test 09:43:38 AORTA,IVC,ILIACS,SU starting of Med icine T COMPLETE DUPLEX 03/25/2022 until [code = 59261-6] 03/25/2023 Future Scheduled 2022-03-[address] [facility] Test 00:00:00 (#1) [code = Medical Center INFLUENZA VACCINE (#1)] Future Scheduled 2022-03-[address] [facility] Test 00:00:00 (#1) [code = Medical Center INFLUENZA VACCINE (#1)] Future Scheduled 2022-03-[address] [facility] Test 00:00:00 (#1) [code = Medical Center INFLUENZA VACCINE (#1)] Future Scheduled 2022-03-[address] [facility] Test 00:00:00 (#1) [code = Medical Center INFLUENZA VACCINE (#1)] Future Scheduled 2022-03-05 TETANUS SHOT (ADULT) [employer] Test 11:22:10 [code = TETANUS SHOT of Medi cine (ADULT)] Future Scheduled 2022-03-05 Hepatitis C screening [employer] Test 11:22:10 (procedure) [code = of Medic ine [id number]] Future Scheduled 2022-03-05 ZOSTER VACCINE (1 of [employer] Test 11:22:10 2) [code = ZOSTER of Medicin e VACCINE (1 of 2)] Future Scheduled 2022-03-05 MEDICARE AWV [facility] Test 11:22:10 (Initial) [code = of Medicin e MEDICARE AWV (Initial)] Future Scheduled 2022-03-05 Pneumococcal 65+ (2 - [employer] Test 11:22:10 PCV) [code = of Medicine Pneumococcal 65+ (2 - PCV)] Future Scheduled 2022-03-05 COVID-19 Vaccine (3 - [employer] Test 11:22:10 Booster for Pfizer of Medici ne series) [code = COVID-19 Vaccine (3 - Booster for Pfizer series)] Future Scheduled 2022-03-05 FLU VACCINE > 6 [facility] Test 11:22:10 MONTHS [code = FLU of Medici ne VACCINE > 6 MONTHS] Future Scheduled 2022-03-05 FALL SCREEN [code = [employer] Test 11:22:10 FALL SCREEN] of Medicine Future Scheduled 2022-03-05 CYSTOSCOPY [code = 1 Occurrences [employer] Test 11:15:13 [id number]] starting of Medicine 03/05/2022 until 03/05/2023 Future Scheduled 2022-03-05 CYTOLOGY, URINE [code Ordered: [employer] Test 09:48:07 = 15058] 03/05/2022 of Medicine Future Scheduled 2022-02-23 TETANUS SHOT (ADULT) [employer] Test 07:55:49 [code = TETANUS SHOT of Medi cine (ADULT)] Future Scheduled 2022-02-23 Hepatitis C screening [employer] Test 07:55:49 (procedure) [code = of Medic ine [id number]] Future Scheduled 2022-02-23 ZOSTER VACCINE (1 of [employer] Test 07:55:49 2) [code = ZOSTER of Medicin e VACCINE (1 of 2)] Future Scheduled 2022-02-23 MEDICARE AWV [facility] [facility] 07:55:49 (Initial) [code = of Medicin e MEDICARE AWV (Initial)] Future Scheduled 2022-02-23 Pneumococcal 65+ (2 - [employer] Test 07:55:49 PCV) [code = of Medicine Pneumococcal 65+ (2 - PCV)] Future Scheduled 2022-02-23 COVID-19 Vaccine (3 - [employer] Test 07:55:49 Booster for Pfizer of Medici ne series) [code = COVID-19 Vaccine (3 - Booster for Pfizer series)] Future Scheduled 2022-02-23 FLU VACCINE > 6 [facility] Test 07:55:49 MONTHS [code = FLU of Medici ne VACCINE > 6 MONTHS] Future Scheduled 2022-02-23 FALL SCREEN [code = [employer] Test 07:55:49 FALL SCREEN] of Medicine Future Scheduled 2022-02-19 CULTURE, Ordered: [facility] Test 09:06:09 URINE/SENSITIVITY ON 02/19/2022 of Medi cine ALL [code = 51025-1] Future Scheduled 2022-02-19 TETANUS SHOT (ADULT) [employer] Test 08:52:06 [code = TETANUS SHOT of Medi cine (ADULT)] Future Scheduled 2022-02-19 Hepatitis C screening [employer] Test 08:52:06 (procedure) [code = of Medic ine [id number]] Future Scheduled 2022-02-19 ZOSTER VACCINE (1 of [employer] Test 08:52:06 2) [code = ZOSTER of Medicin e VACCINE (1 of 2)] Future Scheduled 2022-02-19 MEDICARE AWV [facility] [facility] 08:52:06 (Initial) [code = of Medicin e MEDICARE AWV (Initial)] Future Scheduled 2022-02-19 Pneumococcal 65+ (2 - [employer] Test 08:52:06 PCV) [code = of Medicine Pneumococcal 65+ (2 - PCV)] Future Scheduled 2022-02-19 COVID-19 Vaccine (3 - [employer] Test 08:52:06 Booster for Pfizer of Medici ne series) [code = COVID-19 Vaccine (3 - Booster for Pfizer series)] Future Scheduled 2022-02-19 FLU VACCINE > 6 [facility] Test 08:52:06 MONTHS [code = FLU of Medici ne VACCINE > 6 MONTHS] Future Scheduled 2022-02-19 FALL SCREEN [code = [employer] Test 08:52:06 FALL SCREEN] of Medicine Future Scheduled 2021-10-23 TETANUS SHOT (ADULT) [employer] Test 09:00:07 [code = TETANUS SHOT of Medi cine (ADULT)] Future Scheduled 2021-10-23 Hepatitis C screening [employer] Test 09:00:07 (procedure) [code = of Medic ine [id number]] Future Scheduled 2021-10-23 ZOSTER VACCINE (1 of [employer] Test 09:00:07 2) [code = ZOSTER of Medicin e VACCINE (1 of 2)] Future Scheduled 2021-10-23 MEDICARE AWV [facility] [employer] 09:00:07 (Initial) [code = of Medicin e MEDICARE AWV (Initial)] Future Scheduled 2021-10-23 Pneumococcal 65+ (2 [employer] Test 09:00:07 of 2 - PCV13) [code = of Med icine Pneumococcal 65+ (2 of 2 - PCV13)] Future Scheduled 2021-10-23 COVID-19 Vaccine (3 - [employer] Test 09:00:07 Booster for Pfizer of Medici ne series) [code = COVID-19 Vaccine (3 - Booster for Pfizer series)] Future Scheduled 2021-10-23 FLU VACCINE > 6 [facility] [employer] Test 09:00:07 MONTHS [code = FLU of Medici ne VACCINE > 6 MONTHS] Future Scheduled 2021-10-23 FALL SCREEN [code = [employer] 09:00:07 FALL SCREEN] of Medicine Future Scheduled 2021-09-11 TETANUS SHOT (ADULT) [employer] Test 09:40:05 [code = TETANUS SHOT of Medi cine (ADULT)] Future Scheduled 2021-09-11 Hepatitis C screening [employer] Test 09:40:05 (procedure) [code = of Medic ine [id number]] Future Scheduled 2021-09-11 ZOSTER VACCINE (1 of [employer] Test 09:40:05 2) [code = ZOSTER of Medicin e VACCINE (1 of 2)] Future Scheduled 2021-09-11 MEDICARE AWV [facility] [employer] 09:40:05 (Initial) [code = of Medicin e MEDICARE AWV (Initial)] Future Scheduled 2021-09-11 Pneumococcal 65+ (2 [employer] Test 09:40:05 of 2 - PCV13) [code = of Med icine Pneumococcal 65+ (2 of 2 - PCV13)] Future Scheduled 2021-09-11 FLU VACCINE > 6 [facility] [employer] Test 09:40:05 MONTHS [code = FLU of Medici ne VACCINE > 6 MONTHS] Future Scheduled 2021-09-11 COVID-19 Vaccine (3 - [employer] 09:40:05 Booster for Pfizer of Medici ne series) [code = COVID-19 Vaccine (3 - Booster for Pfizer series)] Future Scheduled 2021-09-11 FALL SCREEN [code = [employer] 09:40:05 FALL SCREEN] of Medicine Future Scheduled 2021-09-10 US 1 Occurrences [employer] Test 09:27:06 AORTA,IVC,ILIACS,SU starting of Med icine T COMPLETE DUPLEX 09/10/2021 until [code = 10079-4] 09/10/2022 Future Scheduled 2021-07-31 MEDICARE AWV [facility] [employer] 10:26:25 (Initial) [code = of Medicin e MEDICARE AWV (Initial)] Future Scheduled 2021-07-31 Pneumococcal 65+ (2 [employer] Test 10:26:25 of 2 - PCV13) [code = of Med icine Pneumococcal 65+ (2 of 2 - PCV13)] Future Scheduled 2021-07-31 FLU VACCINE > 6 [facility] [employer] Test 10:26:25 MONTHS [code = FLU of Medici ne VACCINE > 6 MONTHS] Future Scheduled 2021-07-31 COVID-19 Vaccine (3 - [employer] 10:26:25 Booster for Pfizer of Medici ne series) [code = COVID-19 Vaccine (3 - Booster for Pfizer series)] Future Scheduled 2021-07-31 FALL SCREEN [code = [employer] 10:26:25 FALL SCREEN] of Medicine Future Scheduled 2021-07-31 TETANUS SHOT (ADULT) [employer] Test 10:26:25 [code = TETANUS SHOT of Medi cine (ADULT)] Future Scheduled 2021-07-31 Hepatitis C screening [employer] Test 10:26:25 (procedure) [code = of Medic ine [id number]] Future Scheduled 2021-07-31 ZOSTER VACCINE (1 of [employer] Test 10:26:25 2) [code = ZOSTER of Medicin e VACCINE (1 of 2)] Future Scheduled 2021-07-[address] [facility] Test 00:00:00 (12+) [code = Medical Center DEPRESSION SCREENING (12+)] Future Scheduled 2021-07-12 F[address]S [address]ISK SCREENING [facility] Test 00:00:00 [code = FALLS RISK Medical C enter SCREENING] Future Scheduled 2021-07-[address] [facility] Test 00:00:00 (12+) [code = Medical Center DEPRESSION SCREENING (12+)] Future Scheduled 2021-07-12 FALLS RISK SCREENING [facility] Test 00:00:00 [code = FALLS RISK Medical C enter SCREENING] Future Scheduled 2021-07-[address] [facility] Test 00:00:00 (12+) [code = Medical Center DEPRESSION SCREENING (12+)] Future Scheduled 2021-07-12 FALLS RISK SCREENING [facility] Test 00:00:00 [code = FALLS RISK Medical C enter SCREENING] Future Scheduled 2021-07-[address] [facility] Test 00:00:00 (12+) [code = Medical Center DEPRESSION SCREENING (12+)] Future Scheduled 2021-07-12 FALLS RISK SCREENING [facility] Test 00:00:00 [code = FALLS RISK Medical C enter SCREENING] Future Scheduled 2021-03-17 COVID-19 VACCINE (3 - [facility] 00:[facility]00 Booster for Pfizer Medical C enter series) [code = COVID-19 VACCINE (3 - Booster for Pfizer series)] Future Scheduled 2021-03-17 COVID-19 VACCINE (3 - [facility] 00:00:00 Booster for Pfizer Medical C enter series) [code = COVID-19 VACCINE (3 - Booster for Pfizer series)] Future Scheduled 2021-03-17 COVID-19 VACCINE (3 - [facility] 00:00:00 Booster for Pfizer Medical C enter series) [code = COVID-19 VACCINE (3 - Booster for Pfizer series)] Future Scheduled 2021-03-17 COVID-19 VACCINE (3 - [facility] 00:00:00 Booster for Pfizer Medical C enter series) [code = COVID-19 VACCINE (3 - Booster for Pfizer series)] Future Scheduled 2018-07-31 PNEUMOCOCCAL 65+ YRS [facility] Test 00:00:00 (2 - PCV) [code = Medical Ce nter PNEUMOCOCCAL 65+ YRS (2 - PCV)] Future Scheduled 2018-07-31 PNEUMOCOCCAL 65+ YRS [facility] Test 00:00:00 (2 - PCV) [code = Medical Ce nter PNEUMOCOCCAL 65+ YRS (2 - PCV)] Future Scheduled 2018-07-31 PNEUMOCOCCAL 65+ YRS [facility] Test 00:00:00 (2 - PCV) [code = Medical Ce nter PNEUMOCOCCAL 65+ YRS (2 - PCV)] Future Scheduled 2018-07-31 PNEUMOCOCCAL 65+ YRS [facility] Test 00:00:00 (2 - PCV) [code = Medical Ce nter PNEUMOCOCCAL 65+ YRS (2 - PCV)] Future Scheduled 2009-04-[address] [facility] 00:00:00 WELLNESS (YEAR 2 or Medical Center FIRST YEAR if no IPPE) [code = MEDICARE ANNUAL WELLNESS (YEAR 2 or FIRST YEAR if no IPPE)] Future Scheduled 2009-04-[address] [facility] Test 00:00:00 WELLNESS (YEAR 2 or Medical Center FIRST YEAR if no IPPE) [code = MEDICARE ANNUAL WELLNESS (YEAR 2 or FIRST YEAR if no IPPE)] Future Scheduled 2009-04-[address] [facility] 00:00:00 WELLNESS (YEAR 2 or Medical Center FIRST YEAR if no IPPE) [code = MEDICARE ANNUAL WELLNESS (YEAR 2 or FIRST YEAR if no IPPE)] Future Scheduled 2009-04-[address] [facility] 00:00:00 WELLNESS (YEAR 2 or Medical Center FIRST YEAR if no IPPE) [code = MEDICARE ANNUAL WELLNESS (YEAR 2 or FIRST YEAR if no IPPE)] Future Scheduled 1993 SHINGLES VACCINES ([address] [facility] Test 00:00:00 of 2) [code = Medical Center SHINGLES VACCINES (1 of 2)] Future Scheduled 1993 SHINGLES VACCINES ([address] [facility] Test 00:00:00 of 2) [code = Medical Center SHINGLES VACCINES (1 of 2)] Future Scheduled 1993 SHINGLES VACCINES ([address] [facility] Test 00:00:00 of 2) [code = Medical Center SHINGLES VACCINES (1 of 2)] Future Scheduled 1993 SHINGLES VACCINES ([address] [facility] Test 00:00:00 of 2) [code = Medical Center SHINGLES VACCINES (1 of 2)] Future Scheduled 1962 DTAP/TDAP/TD VACCINES [facility] 00:00:00 (1 - Tdap) [code = Medical C enter DTAP/TDAP/TD VACCINES (1 - Tdap)] Future Scheduled 1962 DTAP/TDAP/TD VACCINES [facility] 00:00:00 (1 - Tdap) [code = Medical C enter DTAP/TDAP/TD VACCINES (1 - Tdap)] Future Scheduled 1962 DTAP/TDAP/TD VACCINES [facility] 00:00:00 (1 - Tdap) [code = Medical C enter DTAP/TDAP/TD VACCINES (1 - Tdap)] Future Scheduled 1962 DTAP/TDAP/TD VACCINES [facility] 00:00:00 (1 - Tdap) [code = Medical C enter DTAP/TDAP/TD VACCINES (1 - Tdap)] Future Scheduled 1961 HEPATITIS C SCREENING [facility] 00:00:00 [code = HEPATITIS C Medical Center SCREENING] Future Scheduled 1961 HEPATITIS C [facility] 00:00:00 [code = HEPATITIS C Medical Center SCREENING] Future Scheduled 1961 HEPATITIS C [facility] 00:00:00 [code = HEPATITIS C Medical Center SCREENING] Future Scheduled 1961 HEPATITIS C [facility] 00:00:00 [code = HEPATITIS C Medical Center SCREENING] Future Scheduled COLON CANCER [facility] [employer] SCREENING: of Medicine COLONOSCOPY [code = COLON CANCER SCREENING: COLONOSCOPY] Future Scheduled MEDICARE AWV [code = [employer] MEDICARE AWV] of Medicine Future Scheduled TETANUS SHOT (ADULT) [employer] [code = TETANUS SHOT of Medi cine (ADULT)] Future Scheduled AAA Screen [code = [employer] AAA Screen] of Medicine Future Scheduled FALL SCREEN [code = [employer] FALL SCREEN] of Medicine Future Scheduled PREVNAR >= 65 (PCV13) [employer] [facility] [code = PREVNAR >= 65 of Med icine (PCV13)] Future Scheduled HUMIDIFIER FOR OXYGEN Ordered: [employer] Test [code = NOCPT] 08/04/2019 of Medicine Future Scheduled PORTABLE OXYGEN Ordered: [facility] [employer] Test CONCENTRATORS [code = 08/04/2019 of Med icine NOCPT] Future Scheduled PORTABLE OXYGEN [code Ordered: [employer] [facility] = NOCPT] 08/04/2019 of Medicine Future Scheduled OXYGEN CONCENTRATOR Ordered: [employer] [facility] [code = NOCPT] 08/04/2019 of Medicine Future Scheduled NASAL CANNULAS [code Ordered: [employer] Test = NOCPT] 08/04/2019 of Medicine Future Scheduled HANDICAPPED PLACARD Ordered: [employer] Test [code = NOCPT] 08/04/2019 of Medicine Future Scheduled MEDICARE AWV [code = [employer] [facility] MEDICARE AWV] of Medicine Future Scheduled TETANUS SHOT (ADULT) [employer] Test [code = TETANUS SHOT of Medi cine (ADULT)] Future Scheduled MEDICARE AWV [facility] [employer] [facility] (Initial) [code = of Medicin e MEDICARE AWV (Initial)] Future Scheduled FALL SCREEN [code = [employer] FALL SCREEN] of Medicine Future Scheduled PREVNAR >= 65 (PCV13) [employer] [facility] [code = PREVNAR >= 65 of Med icine (PCV13)] Future Scheduled COMPLETE PFT WITH 1 [facility] [place] [facility] BRONCHODILATOR [code starting of Medi cine = 40858] 04/12/2019 until 04/12/2020 Future Scheduled SIX MINUTE WALK TEST 1 Occurrences [employer] Test [code = 75528] starting of Medicine 04/12/2019 until 04/12/2020 Encounters Start End Encounter Admission Attending Care Care Encounter Source Date/Time Date/Time Type Type Clinicians Facility Department ID 2022-08-25 2022-08-25 Outpatient KAREEM PINZON [facility] [id number] [facility] 00:00:00 00:00:00 URSULA 2022-07-02 2022-07-02 Outpatient SANTOS TELLO [facility] [id number] [facility] 08:04:05 09:38:32 BERNARD Pires e of Medicin e 2022-06-18 2022-06-18 Office SANTOS TELLO [id number] [facility] 08:42:04 08:42:38 Visit BERNARD AMBULATOR 350.1.13.21 College Y 0.2.7.2.686 of [id number] Medi jeffery 300 e 2022-06-18 2022-06-18 Outpatient SANTOS TELLO [facility] [id number] [facility] 07:53:14 07:53:14 BERNARD Pires e of Medicin e 2022-06-03 2022-06-03 Orders Ligia [facility] [id number] 00:00:00 00:00:00 Only [facility] 2022-06-03 2022-06-03 Orders Ligia [facility] [id number] 00:00:00 00:00:00 Only [facility] 2022-05-21 2022-05-21 [facility] ST LigiaAshley [id number] 08:24:18 23:59:00 [facility] 2022-05-21 2022-05-21 Outpatient KAREEM PINZON [id number] [facility] 08:24:18 23:59:00 [facility] 2022-05-21 2022-05-21 [facility] [id number] 08:24:18 23:59:00 [facility]counter [facility] 2022-05-21 2022-05-21 Office BAKARI Yang [id number] [facility] 09:30:00 13:59:54 Visit [facility] AMBULATOR 350.1.13.21 College Y 0.2.7.2.686 of [id number] Medi jeffery 380 e 2022-05-20 2022-05-20 Outside [facility] [id number] 00:00:00 00:00:00 Orders [facility] 2022-05-20 2022-05-20 Outside [facility] [id number] 00:00:00 00:00:00 Orders [facility] 2022-03-25 2022-03-25 Outpatient [facility] [id number] [facility] 07:23:33 09:55:56 Colleg e of Medicin e 2022-03-25 2022-03-25 Office SANTOS Thomas [id number] [facility] 09:30:00 09:54:29 Visit [facility] AMBULATOR 350.1.13.21 College Y 0.2.7.2.686 of [id number] Medi jeffery 825 e 2022-03-17 2022-03-17 Outpatient SANTOS TELLO [facility] [id number] [facility] 13:26:38 16:43:25 [facility]ERNARD [employer] of Medicin e 2022-03-05 2022-03-05 Office SANTOS Tello 1.2.840.114 [id number] [facility] 09:30:00 11:17:18 Visit Bernard P AMBULATOR 350.1.13.21 College Y 0.2.7.2.686 of [id number] Medi jeffery 300 e 2022-03-05 2022-03-05 Outpatient [facility] [id number] [facility] 08:50:06 11:16:51 Colleg e of Medicin e 2022-02-19 2022-02-19 Office SANTOS TELLO 1.2.840.114 [id number] [facility] 08:10:22 13:35:12 Visit BERNARD AMBULATOR 350.1.13.21 College Y 0.2.7.2.686 of [id number] Medi jeffery 300 e 2022-02-10 2022-02-10 Office BAKARI YANG 1.2.840.114 [id number] [facility] 07:13:46 07:13:46 [facility] 350.1.13.21 College Y 0.2.7.2.686 of [id number] [facility] 380 e 2022-02-09 2022-02-09 [facility] [id number] [facility] 10:30:58 23:59:00 Encounter 1, [facility] Room [facility] 2022-02-09 2022-02-09 Outpatient [facility] SLE [id number] SLE 10:30:58 23:59:00 [facility] 2022-02-09 2022-02-09 [facility] [id number] [facility] 10:30:58 23:59:00 [facility] 2022-01-19 2022-01-19 Outside [facility] [id number] 00:00:00 00:00:00 Orders [facility] 2022-01-19 2022-01-19 Outside [facility] [id number] 00:00:00 00:00:00 Orders [facility] 2021-12-09 2021-12-09 Outpatient MARY ANNE KEYON [facility] [id number] [facility] 10:08:29 14:23:36 Colleg e of Medicin e 2021-11-19 2021-11-19 [facility] [id number] 09:34:22 23:59:00 [facility] 2021-11-19 2021-11-19 Outpatient KAEREM PINZON SLE [id number] [facility] 09:34:22 23:59:00 TITA 2021-11-19 2021-11-19 [facility] [id number] 09:34:22 23:59:00 [facility]counter [facility] 2021-11-14 2021-11-14 Outside [facility] [id number] 00:00:00 00:00:00 Orders [facility] 2021-11-14 2021-11-14 Outside [facility] [id number] 00:00:00 00:00:00 Orders [facility] 2021-10-14 2021-10-14 Office LIGIA [facility] 1.2.840.114 [id number] [facility] 13:10:19 15:25:48 Visit [facility] AMBULATOR 350.1.13.21 College Y 0.2.7.2.686 [id number] [facility] jeffery 380 e 2021-10-10 2021-10-10 [facility] [id number] 08:44:26 23:59:00 [facility] 2021-10-10 2021-10-10 [facility] [id number] SLE 08:44:26 23:59:00 KARON 2021-10-10 2021-10-10 [facility] [id number] 08:44:26 23:59:00 Encounter 1, [facility] [address] [facility] Room [facility] 2021-10-07 2021-10-07 Outside [facility] [id number] 00:00:00 00:00:00 Orders [facility] 2021-10-07 2021-10-07 Outside [facility] [id number] 00:00:00 00:00:00 Orders [facility] 2021-09-10 2021-09-10 Office SANTOS Thomas 1.2.840.114 [id number] [facility] 09:45:00 09:45:00 Visit Ap AMBULATOR 350.1.13.21 College Y 0.2.7.2.686 [id number] Medi jeffery 825 e 2021-09-10 2021-09-10 Outpatient [facility] [id number] [facility] 07:23:50 09:31:02 Lexis byers of Medicin e 2021-08-19 2021-08-20 Hospital Ap Greene [facility] [id number] 05:18:00 11:20:00 Encounter Crystal Rene [facility] 2021-08-19 2021-08-20 Hospital Ap Thomas [facility] [id number] 05:18:00 11:20:00 Encounter Crystal Rene [facility] 2021-08-19 2021-08-20 Inpatient [facility] Surgery [id number] [facility] 05:18:00 11:20:00 [facility] 2021-08-19 2021-08-19 Surgery William [facility] [id number] 07:35:00 09:28:00 [facility] 2021-08-19 2021-08-19 Surgery William [facility] [id number] 07:35:00 09:28:00 [facility] 2021-08-15 2021-08-15 [facility] [id number] 13:00:00 13:15:00 Visit Lilia Collins [facility] 2021-08-15 2021-08-15 Office William [facility] [id number] 13:00:00 13:15:00 Visit Lilia Collins Maribel [facility] 2021-08-15 2021-08-15 Outpatient EL [facility] [id number] [facility] 12:34:42 12:34:42 2021-08-15 2021-08-15 Orders [facility] [id number] 00:00:00 00:00:00 Only [facility] 2021-08-15 2021-08-15 Orders [facility] [id number] 00:00:00 00:00:00 Only [facility] 2021-07-30 2021-07-30 Office SANTOS THOMAS 1.2.840.114 [id number] [facility] 13:02:27 16:36:40 Visit AP AMBULATOR 350.1.13.21 College Y 0.2.7.2.686 of [id number] [facility] jeffery 825 e 2019-08-04 2019-08-04 Office SANTOS Garcia 1.2.840.114 [id number] [facility] 08:54:04 11:21:20 Visit Karon AMBULATOR 350.1.13.21 College Kaiden Y 0.2.7.2.686 of [id number] [facility] jeffery 315 e 2019-04-12 2019-04-12 Office SANTOS Garcia 1.2.840.114 [id number] [facility] 12:00:27 14:20:18 Visit Karon AMBULATOR 350.1.13.21 College Kaiden Y 0.2.7.2.686 of [id number] [facility] 315 e Results Test Description Test Time Test Comments Results Result [facility] e Comments CT, CHEST, WITHOUT 2022-05-25 Unlisted Reason IV CONTRAST 12:26:00 for Exam - Click Yes and Enter Reason [facility] Below[facility] Reason for ROCK BRYAN Exam->LUNG : 1945 Sex: NODULE M *FINAL REPORT CT of the chest, without contrast Clinical History: Unlisted Reason for ExamLUNG NODULE Technique: CT of the chest is performed without intravenous contrast administration. This exam was performed according to our departmental dose optimization program which includes automated exposure control, adjustment of the mA and/or kV according to patient's size and/or use of iterative reconstructive technique. Comparison Film: February 09, 2022, November 19, 2021 Discussion: Thyroid gland is normal. No supraclavicular, axillary, mediastinal or hilar lymphadenopathy. Heart is normal in size, no pericardial effusion. There is severe pulmonary emphysema. There is a new spiculated 8 mm nodule in the left lower lobe (image 70). Previously seen consolidation in the posterior right lower lobe has resolved. Several additional scattered small pulmonary nodules, some demonstrate waxing and waning features, are grossly unchanged. There is mild degree of bronchial wall thickening, mild scarring or atelectasis is noted in the lingula and middle lobe, unchanged. No new consolidation. No pleural effusion. Partially imaged upper abdomen is without worrisome findings. Bony structures demonstrate degenerative changes. Inferior endplate compression deformity of T8 vertebral body is new. Impression: Severe emphysema. Mild bronchial wall thickening. Previously seen right lower lobe opacity has resolved, but there is a new 8 mm nodule in the left lower lobe. Other scattered small pulmonary nodules are without significant interval change. Continued imaging follow-up is suggested. New inferior endplate compression fracture of T8. Signed: Isela Burgos Verified Date/Time: 05/25/2022 12:26:13 Reading Location: [address] Consult Reading Room URINALYSIS DIPSTICK 2022-02-19 00:00:00 Test Item Value Reference Range Interpretation Comme nts COLOR UA (test code = 5778-6) Yellow YELLOW/STRAW CLARITY UA (test code = 94980-3) Cloudy CLEAR GLUCOSE UA (test code = 5792-7) Negative NEGATIVE BILIRUBIN UA (test code = 5770-3) Negative NEGATIVE KETONES UA (test code = 27121-3) Negative NEGATIVE SPECIFIC GRAVITY UA (test code = 5811-5) 1.005-1.035 BLOOD UA (test code = 5794-3) Trace NEGATIVE PH UA (test code = 5803-2) 5-9 PROTEIN UA (test code = 5804-0) Negative NEGATIVE UROBILINOGEN UA (test code = 5818-0) 0.02 E.U/DL NORMAL MG/DL LEUKOCYTE ESTERASE UA (test code = 5799-2) MOD NEGATIVE NITRITE UA (test code = 5802-4) 4+ NEGATIVE REDUCING SUBSTANCES URINE (test code = 13885-2) [facility] [id number] 14:08:00 ZEPHYR VALVE PROTOCOLZEPHYR VALVE PROTOCOLUnlisted Reason for Exam - Click Yes and Enter Reason Below->YesUnlisted Reason for Exam->J44.9 [facility] : 1945 Sex: MFINAL REPORT EXAMINATION: CT, CHEST, WITHOUT IV CONTRAST. INDICATION: 76-year-old male with history of bladder cancer. COMPARISON: CT chest dated 11/19/2021, 10/10/2021. TECHNIQUE:Helical CT imaging of the chest was performed from the lung apices to the adrenal glands without the administration of contrast material. Multiplanar reformats were performed by a technologist. One or more of the following dose reduction techniques were used:*Automated exposure control*Adjustment of the mA and/ or kV according to patient size*Use of iterative reconstruction technique Total DLP (mGy-cm): 151.78Intravenous contrast: None DICOM format image data are available to non-affiliated external healthcare facilities or entities on a secure, media free, reciprocally searchable basis with patient authorization for at least a 12 month period after the study. FINDINGS: NECK: The visualized thyroid appearsnormal. VASCULAR: The thoracic aorta is normal in course and caliber. Conventional configuration of t he supraaortic branches. Moderate calcified atherosclerotic disease. The main pulmonary artery is within normal limits. HEART: The heart is of normal size. Severe calcification of the coronary arteries. No significant pericardial effusion. MEDIASTINUM: No pathologic mediastinal lymph nodes. The thoracic esophagus is unremarkable. AIRWAYS: Scant secretions are noted in the trachea. No bronchiectasis. LUNGS/ PLEURA: Severe centrilobular emphysema. A 1.9 cm linear nodular opacity is identified in the right lower lobe (axial image 94), new from prior examination. Interval near resolution of a 5 mm solid nodule in the peripheral left lower lobe, posterobasal segment. Interval development of a 6 mm solid nodule in the peripheral left lower lobe (axial image 49) and a 4 mm solid nodule in the peripheralleft lower lobe (axial image 103). Other multiple bilateral subcentimeter pulmonary nodules appear stable from prior examination. No pleural effusion. No pneumothorax. SOFT TISSUES/ BONES: Soft tissuesare unremarkable. Mild degenerative changes of the visualized spine. No aggressive osseous lesions. UPPER ABDOMEN: A punctate calculus is noted in the right kidney. Partial visualization of an aortic stent graft in the abdominal aorta. IMPRESSION:1.A 1.9 cm linear nodular opacity is identified in the right lower lobe; waxing and waning subcentimeter solid nodules in the left lower lobe are also noted. Findings are nonspecific and could be infectious/ inflammatory in etiology or related to aspirationgiven scant secretions in the trachea. Modified barium swallow and follow-up chest CT in 3 months isrecommended.2.Other multiple bilateral subcentimeter pulmonary nodules appear stable from prior examination. 3.Severe emphysema.4.Severe calcification of the coronary arteries. Signed: Regina Terrell MDReport Verified Date/Time: 02/09/2022 14:08:34 Reading Location: [facility] Diagnostic Imaging Reading Room - [place] [address] CT, CHEST, WITHOUT IV CONTRAST 2021-11-19 12:19:00ZEPHYR VALVE PROTOCOLUnlisted Reason for Exam - Click Yes and Enter Reason Below->YesUnlisted Reason for Exam->Stage 4 very severe COPD by GOLD classification [facility] : 1945 Sex: MFINAL REPORT EXAMINATION: CT, CHEST, WITHOUT IV CONTRAST INDICATION: Stage 4 very severe COPD by GOLD classification COMPARISON: CT chest dated October 10, 2021 TECHNIQUE:Chest was scanned utilizing a multidetector helical scanner from the lung apex through the level of the adrenal glands without administration of IV contrast. Absence of intravenous contrast decreases sensitivity for detection of lymphadenopathy and vascular pathology. Coronal and sagittal reformations were obtained. Routine chest CT protocol was performed. IV CONTRAST: None RADIATION DOSE:Total DLP: 973 mGy*cmEstimated effective dose: 973 x 0.014 mSvCTDIvol has been reviewed. It is below the limits set by the Radiati on Protocol Committee (RPC). FINDINGS: LUNGS AND AIRWAYS: Diffuse severe confluent centrilobular pulmonary emphysema. Redemonstration of substantial paraseptal emphysema in the upper lobes and multiplebullae at the lung apices. Stable 2 mm nodular density in the posterior segment of the right upper lobe (series 2 image 29). A 1 mm subpleural calcified pulmonary nodule noted in the posterior segment of the right upper lobe. Unchanged 3 mm solid pulmonary nodule in the posterior segment of the right upper lobe (series 2 image 63). Stable 1 mm solid pulmonary nodule in the anterior segment of the right upper lobe (series 2 image 73). There is a stable 6 mm nodular density (image 173) in the medial posterior segment of the right upper lobe adjacent to the inferior surface of the azygous arch. There is a stable 3 mm solid pulmonary nodule in the lateral segment of the right middle lobe (series 2 image 102). Stable 2 mm solid pulmonary nodule in the superior segment of the right lower lobe (series 2 image 75). Stable 4 mm solid pulmonary nodule in the posterior basal segment of the right lower lobe(series 2; image 102). Stable 1 mm solid pulmonary nodule in the lateral basal segment of the right lower lobe (image 106). Stable 5 mm nodular density in the posterior basal segment of the right lowerlobe (image 106). Stable 3 mm solid pulmonary nodule in the apicoposterior segment of the left upperlobe (image 40). Stable nodular density measuring 7 x 3 mm (image 52) in the apicoposterior segment of the left upper lobe. Interval enlargement of a solid pulmonary nodule (5 mm; image 92; previous measurement: 3 mm) in the posterior basal segment of the left lower lobe. There are multiple stable solid pulmonary nodules measuring up to 2 to 3 mm in the posterior basal segment of the left lower lobe (image 95). There is a stable 2.5 mm subpleural solid pulmonary nodule in the lateral basal segment of the left lower lobe (image 86). There is a stable 7 mm nodular density in the superior segment of the left lower lobe (image 68). Airways are normal. No bronchiectasis/bronchiolectasis. PLEURA: The pleural spaces are clear. HEART AND MEDIASTINUM: The thyroid gland is normal. No mediastinal, hilar or axillary lymphadenopathy. The heart is normal in size. There is no pericardial effusion. Extensive three-vessel coronary artery calcifications. The thoracic aorta and pulmonary arteries are unremarkable. UPPER ABDOMEN: Partially imaged stent graft in the infrarenal abdominal aorta. Redemonstration of an exophytic cortical cyst measuring 1.5 cm in the interpolar left kidney. BONES: The visualized bony thorax is within normal limits. SOFT TISSUES: Unremarkable. IMPRESSION: 1. Interval enlargement of a solid pulmonary nodule in the left lower lobe, posterior basal segment. Morphology is concerning for a neoplasm. 2. Stable multiple bilateral solid pulmonary nodules. No new pulmonary nodules. 3. Diffuse severe confluent centrilobular pulmonary emphysema. 4. Coronary artery disease. Extensive three-vessel coronary artery calcifications. Signed: Shon Herrera MDReport Verified Date/Time: 11/19/2021 12:19:39 Reading Location: [facility] Reading Room [address] [place] [address] CT, CHEST, WITHOUT IV [id number] 11:40:00Unlisted Reason for Exam - Click Yes and Enter Reason Below->YesUnlisted Reason for Exam->Stage 4 very severe COPD by GOLD classification [facility] : 1945 Sex: MFINAL REPORT EXAMINATION: CT, CHEST, WITHOUT IV CONTRAST INDICATION: Stage 4 very severe COPD by GOLD classification TECHNIQUE:Chest was scanned utilizing a multidetector helical scanner from the lung apex through the level of the adrenal glands without administration of IV contrast. Absence of intravenous contrast decreases sensitivity for detection of lymphadenopathy and vascular pathology. Coronal and sagittal reformations were obtained. Routine chest CT protocol was performed. IVCONTRAST: NoneCOMPLICATIONS: None RADIATION DOSE:Total DLP: 140 mGy*cmEstimated effective dose: 140 x 0.012 mSvCTDIvol has been reviewed. It is below the limits set by the Radiation Protocol Committee ( RPC). FINDINGS: LUNGS AND AIRWAYS: Qualitatively severe diffuse confluent centrilobular pulmonary emphysema. There is substantial paraseptal emphysema in the upper lobes. There are multiple bullae measuring up to 2 cm at the lung apices. Solid pulmonary nodule (2 mm; series 2 image 24) in the posterior segment of the right upper lobe. Solid pulmonary nodule (3 mm; image 59) in the posterior segment of the right upper lobe. There are two calcified pulmonary nodules measuring up to 6 mm in the posterior segment of the right upper lobe. Solid nodular density (6 mm x 4 mm; series 2 image 38) in the apicoposterior segment of the left upper lobe. Solid nodular density (8 mm x 4 mm; series 2 image 50) inthe apicoposterior segment of the left upper lobe. Solid pulmonary nodule (3 mm; image 80) in the inferior lingula. Subpleural solid pulmonary nodule (3 mm; image 77) in the lateral segment of the right middle lobe. 2 mm solid pulmonary nodule (image 99) in the lateral segment of the right middle lobe. Solid pulmonary nodule (2 mm; image 71) in the superior segment of the right lower lobe. Solid pulmonary nodule (2 mm; image 79) in the posterior basal segment of the right lower lobe. There are two solid pulmonary nodules measuring up to 4 mm in the posterior basal segment of the right lower lobe (image 98) Solid nodular density (10 mm x 4 mm; image 67) in the superior segment of the left lower lobe. Few 1 to 2 mm solid pulmonary nodules in the posterior basal segment of the right lower lobe (image 75). Solid pulmonary nodule (2 mm; image 77) in the anteromedial basal segment of the left lower lobe. There are subsegmental atelectatic changes in the medial segment of the right middle lobe and inferior lingula. There are no consolidations. No interstitial lung disease. Airways are normal. PLEURA:The pleural spaces are clear. HEART AND MEDIASTINUM: The thyroid gland is normal. No mediastinal, hilar or axillary lymphadenopathy. The heart is normal in size. There is no pericardial effusion. The thoracic aorta and pulmonary arteries are normal in caliber. There are extensive three- vessel coronaryartery calcifications. UPPER ABDOMEN: Partially imaged stent graft in the infrarenal abdominal aorta. Partially exophytic cortical cyst measuring 1.5 cm arising from the outer cortex of the interpolar left kidney. BONES: The visualized bony thorax is within normal limits. SOFT TISSUES: Unremarkable. IMPRESSION: 1. Qualitatively severe confluent centrilobular pulmonary emphysema in bilateral upper andlower lobes and right middle lobe. 2. Substantial paraseptal emphysema in the upper lobes. 3. Multiple solid pulmonary nodules. Details as above. 4. Evidence of remote granulomatous disease. 5. Extensive three-vessel coronary artery disease. RECOMMENDATION: Follow-up with nonenhanced routine chest CT in 3-6 months to assure size stability of the pulmonary nodules. Signed: Shon Herreraeport Verified Date/Time: 10/10/2021 11:40:15 Reading Location: [facility] Reading Room [address] [place] [address] Basic Metabolic [id number] 05:08:31 Test Item Value Reference Range Interpretation Comments Sodium (test code = 139 meq/L 520-007 7613-2) Potassium (test code = 3.6 meq/L 3.5-5.1 Speci men slightly 2823-3) hemolyzed Chloride (test code = 108 meq/L 98-107 H 2075-0) CO2 (test code = 25 meq/L 22-29 2028-9) BUN (test code = 17 mg/dL 7-21 3094-0) Creatinine (test code 0.69 mg/dL 0.57-1.25 Specim en slightly = 2160-0) hemolyzed Glucose (test code = 125 mg/dL 70-105 H 2345-7) Calcium (test code = 8.6 mg/dL 8.4-10.2 26674-7) EGFR (test code = 111 mL/min/1.73 [place] [address]-3) NOT ACCURATE CREATININE CLEARANCE IN PREDICTING GLOMERULAR FILTRATION RATE . ESTIMATED GFR I S NOT APPLICABLE FOR DIALYSIS PATIENTS. FAYE (test code = FAYE) Signal Tower Operator ID - PIAYA L Lab Interpretation Abnormal (test code = 43964-1) [facility] 05:08:31 Test Item Value Reference Range Interpretation Comments Magnesium (test code = 2.0 mg/dL 1.6-2.6 Speci men 20577-2) slightly hemolyzed FAYE (test code = FAYE) Signal Tower Operator ID - PIAYA L Lab Interpretation Normal (test code = 74971-1) [facility] [id number] 05:08:31 Test Item Value Reference Range Interpretation Comments Sodium (test code = 139 meq/L 329-452 5737-2) Potassium (test code = 3.6 meq/L 3.5-5.1 Speci men slightly 2823-3) hemolyzed Chloride (test code = 108 meq/L 98-107 H ) CO2 (test code = 25 meq/L 2028-03) BUN (test code = 17 mg/dL 01-294-0) Creatinine (test code 0.69 mg/dL 0.57-1.25 Specim en slightly = 2160-0) hemolyzed Glucose (test code = 125 mg/dL 70-105 H 2345-7) Calcium (test code = 8.6 mg/dL 8.4-10.2 73509-3) EGFR (test code = 111 mL/min/1.[place] [address]-0) NOT ACCURATE CREATININE CLEARANCE IN PREDICTING GLOMERULAR FILTRATION RATE . ESTIMATED GFR I S NOT APPLICABLE FOR DIALYSIS PATIENTS. FAYE (test code = FAYE) Signal Tower Operator ID - PIAYA L Lab Interpretation Abnormal (test code = 55249-9) [facility] 05:08:31 Test Item Value Reference Range Interpretation Comments Magnesium (test code = 2.0 mg/dL 1.6-2.6 Speci men 30280-4) slightly hemolyzed FAYE (test code = FAYE) Signal Tower Operator ID - PIAYA L Lab Interpretation Normal (test code = 23849-5) [facility] [id number] 05:08:31 Test Item Value Reference Range Interpretation Comments Sodium (test code = 139 meq/L 386-683 5584-2) Potassium (test code = 3.6 meq/L 3.5-5.1 Speci men slightly 2823-3) hemolyzed Chloride (test code = 108 meq/L 98-107 H 0) CO2 (test code = 25 meq/L 2028-03) BUN (test code = 17 mg/dL 01-29 3094-0) Creatinine (test code 0.69 mg/dL 0.57-1.25 Specim en slightly = 2160-0) hemolyzed Glucose (test code = 125 mg/dL 70-105 H 2345-7) Calcium (test code = 8.6 mg/dL 8.4-10.2 36905-2) EGFR (test code = 111 mL/min/1.[place] [address]-4) NOT ACCURATE CREATININE CLEARANCE IN PREDICTING GLOMERULAR FILTRATION RATE . ESTIMATED GFR I S NOT APPLICABLE FOR DIALYSIS PATIENTS. FAYE (test code = FAYE) Signal Tower Operator ID - PIAYA L Lab Interpretation Abnormal (test code = 81276-6) [facility] 05:08:31 Test Item Value Reference Range Interpretation Comments Magnesium (test code = 2.0 mg/dL 1.6-2.6 Speci men 53848-2) slightly hemolyzed FAYE (test code = FAYE) Signal Tower Operator ID - PIAYA L Lab Interpretation Normal (test code = 02998-1) [facility] [id number] 05:08:31 Test Item Value Reference Range Interpretation Comments Sodium (test code = 139 meq/L 559-074 7191-2) Potassium (test code = 3.6 meq/L 3.5-5.1 Speci men slightly 2823-3) hemolyzed Chloride (test code = 108 meq/L 98-107 H 2075-0) CO2 (test code = 25 meq/L 22-29 2028-9) BUN (test code = 17 mg/dL 7-21 3094-0) Creatinine (test code 0.69 mg/dL 0.57-1.25 Specim en slightly = 2160-0) hemolyzed Glucose (test code = 125 mg/dL 70-105 H 2345-7) Calcium (test code = 8.6 mg/dL 8.4-10.2 26281-1) EGFR (test code = 111 mL/min/1.73 [place] [address]-9) NOT ACCURATE CREATININE CLEARANCE IN PREDICTING GLOMERULAR FILTRATION RATE . ESTIMATED GFR I S NOT APPLICABLE FOR DIALYSIS PATIENTS. FAYE (test code = FAYE) Signal Tower Operator ID - PIAYA L Lab Interpretation Abnormal (test code = 93206-2) [facility]2022-02-09 05:08:31 Test Item Value Reference Range Interpretation Comments Magnesium (test code = 2.0 mg/dL 1.6-2.6 Speci men 87464-6) slightly hemolyzed FAYE (test code = FAYE) Signal Tower Operator ID - PIAYA L Lab Interpretation Normal (test code = 37076-5) [facility] 05:08:31 Test Item Value Reference Range Interpretation Comments MAGNESIUM (BEAKER) 2.0 mg/dL 1.6-2.6 Specimen slightly (test code = 627) hemolyzed Signal Tower Operator ID - JULIAN LBASIC METABOLIC [id number] 05:08:31 Test Item Value Reference Range Interpretation Comments SODIUM (BEAKER) 139 meq/L 136-145 (test code = 381) POTASSIUM (BEAKER) 3.6 meq/L 3.5-5.1 Specimen slightly (test code = 379) hemolyzed CHLORIDE (BEAKER) 108 meq/L 98-107 H (test code = 382) CO2 (BEAKER) (test 25 meq/L 22-29 code = 355) BLOOD UREA NITROGEN 17 mg/dL 7-21 (BEAKER) (test code = 354) CREATININE (BEAKER) 0.69 mg/dL 0.57-1.25 Specimen slightly (test code = 358) hemolyzed GLUCOSE RANDOM 125 mg/dL 70-105 H (BEAKER) (test code = 652) CALCIUM (BEAKER) 8.6 mg/dL 8.4-10.2 (test code = 697) EGFR (BEAKER) (test 111 mL/min/1.73 ESTIM ATED GFR IS code = 1092) sq m NOT ACCURATE CREATININE CLEARANCE IN PREDICTING GLOMERULAR FILTRATION RATE . ESTIMATED GFR I S NOT APPLICABLE FOR DIALYSIS PATIEN TS. Signal Tower Operator ID - JULIAN LCBC (Hemogram only)2021-08-20 04:40:15 Test Item Value Reference Range Interpretation Comments WBC (test code = 6690-2) 8.7 See_Comment [A utomated message] The system [employer] generated this result transmitted ref erence range: 3.5 - 10 .5 K/L. The refe rence range was not u sed to interpret this result as normal/abnor mal. RBC (test code = 789-8) 4.04 See_Comment L [Au tomated message] The system [employer] generated this result transmitted ref erence range: 4.63 - 6 .08 M/L. The refe rence range was not u sed to interpret this result as normal/abnor mal. MCHC (test code = 786-4) 33.4 See_Comment L [A utomated message] The system [employer] generated this result transmitted ref erence range: 32.3 - 3 6.5 GM/DL. The refe rence range was not u sed to interpret this result as normal/abnor mal. Hematocrit (test code = 37.1 % 40.1-51.0 L 4544-3) MCV (test code = 787-2) 91.8 fL 79.0-92.2 MCH (test code = 785-6) 30.7 pg 25.7-32.2 RDW (test code = 788-0) 13.1 % 11.6-14.4 Platelets (test code = 227 See_Comment [Aut omated message] 777-3) The system [employer] generated this result transmitted ref erence range: 150 - 45 0 K/CU MM. The referen ce range was not u sed to interpret this result as normal/abnor mal. MPV (test code = 10.2 fL 9.4-12.4 77321-5) nRBC (test code = 413) 0 See_Comment [Aut omated message] The system [employer] generated this result transmitted ref erence range: 0 - 0 /1 00 WBC. The refere nce range was not u sed to interpret this result as normal/abnor mal. Lab Interpretation (test Abnormal code = 23789-2) [facility]2021-08-20 04:40:15 Test Item Value Reference Range Interpretation Comments WBC (test code = 6690-2) 8.7 See_Comment [A utomated message] The system [employer] generated this result transmitted ref erence range: 3.5 - 10 .5 K/L. The refe rence range was not u sed to interpret this result as normal/abnor mal. RBC (test code = 789-8) 4.04 See_Comment L [Au tomated message] The system [employer] generated this result transmitted ref erence range: 4.63 - 6 .08 M/L. The refe rence range was not u sed to interpret this result as normal/abnor mal. MCHC (test code = 786-4) 33.4 See_Comment L [A utomated message] The system [employer] generated this result transmitted ref erence range: 32.3 - 3 6.5 GM/DL. The refe rence range was not u sed to interpret this result as normal/abnor mal. Hematocrit (test code = 37.1 % 40.1-51.0 L 4544-3) MCV (test code = 787-2) 91.8 fL 79.0-92.2 MCH (test code = 785-6) 30.7 pg 25.7-32.2 RDW (test code = 788-0) 13.1 % 11.6-14.4 Platelets (test code = 227 See_Comment [Aut omated message] 777-3) The system [employer] generated this result transmitted ref erence range: 150 - 45 0 K/CU MM. The referen ce range was not u sed to interpret this result as normal/abnor mal. MPV (test code = 10.2 fL 9.4-12.4 81530-4) nRBC (test code = 413) 0 See_Comment [Aut omated message] The system [employer] generated this result transmitted ref erence range: 0 - 0 /1 00 WBC. The refere nce range was not u sed to interpret this result as normal/abnor mal. Lab Interpretation (test Abnormal code = 60171-7) [facility] (Hemogram only)2021-08-20 04:40:15 Test Item Value Reference Range Interpretation Comments WBC (test code = 6690-2) 8.7 See_Comment [A utomated message] The system [employer] generated this result transmitted ref erence range: 3.5 - 10 .5 K/L. The refe rence range was not u sed to interpret this result as normal/abnor mal. RBC (test code = 789-8) 4.04 See_Comment L [Au tomated message] The system [employer] generated this result transmitted ref erence range: 4.63 - 6 .08 M/L. The refe rence range was not u sed to interpret this result as normal/abnor mal. MCHC (test code = 786-4) 33.4 See_Comment L [A utomated message] The system [employer] generated this result transmitted ref erence range: 32.3 - 3 6.5 GM/DL. The refe rence range was not u sed to interpret this result as normal/abnor mal. Hematocrit (test code = 37.1 % 40.1-51.0 L 4544-3) MCV (test code = 787-2) 91.8 fL 79.0-92.2 MCH (test code = 785-6) 30.7 pg 25.7-32.2 RDW (test code = 788-0) 13.1 % 11.6-14.4 Platelets (test code = 227 See_Comment [Aut omated message] 777-3) The system [employer] generated this result transmitted ref erence range: 150 - 45 0 K/CU MM. The referen ce range was not u sed to interpret this result as normal/abnor mal. MPV (test code = 10.2 fL 9.4-12.4 89643-6) nRBC (test code = 413) 0 See_Comment [Aut omated message] The system [employer] generated this result transmitted ref erence range: 0 - 0 /1 00 WBC. The refere nce range was not u sed to interpret this result as normal/abnor mal. Lab Interpretation (test Abnormal code = 28835-2) [facility]21-08-20 04:40:15 Test Item Value Reference Range Interpretation Comments WBC (test code = 6690-2) 8.7 See_Comment [A utomated message] The system [employer] generated this result transmitted ref erence range: 3.5 - 10 .5 K/L. The refe rence range was not u sed to interpret this result as normal/abnor mal. RBC (test code = 789-8) 4.04 See_Comment L [Au tomated message] The system [employer] generated this result transmitted ref erence range: 4.63 - 6 .08 M/L. The refe rence range was not u sed to interpret this result as normal/abnor mal. MCHC (test code = 786-4) 33.4 See_Comment L [A utomated message] The system [employer] generated this result transmitted ref erence range: 32.3 - 3 6.5 GM/DL. The refe rence range was not u sed to interpret this result as normal/abnor mal. Hematocrit (test code = 37.1 % 40.1-51.0 L 4544-3) MCV (test code = 787-2) 91.8 fL 79.0-92.2 MCH (test code = 785-6) 30.7 pg 25.7-32.2 RDW (test code = 788-0) 13.1 % 11.6-14.4 Platelets (test code = 227 See_Comment [Aut omated message] 777-3) The system [employer] generated this result transmitted ref erence range: 150 - 45 0 K/CU MM. The referen ce range was not u sed to interpret this result as normal/abnor mal. MPV (test code = 10.2 fL 9.4-12.4 24672-9) nRBC (test code = 413) 0 See_Comment [Aut omated message] The system [employer] generated this result transmitted ref erence range: 0 - 0 /1 00 WBC. The refere nce range was not u sed to interpret this result as normal/abnor mal. Lab Interpretation (test Abnormal code = 59913-5) [facility] (HEMOGRAM ONLY)2021-08-20 04:40:15 Test Item Value Reference Range Interpretation Comments WHITE BLOOD CELL COUNT (BEAKER) 8.7 K/ L 3.5-10.5 (test code = 775) RED BLOOD CELL COUNT (BEAKER) 4.04 M/ L 4.63-6.08 L (test code = 761) HEMOGLOBIN (BEAKER) (test code = 12.4 GM/DL 13.7-17.5 L 410) HEMATOCRIT (BEAKER) (test code = 37.1 % 40.1-51.0 L 411) MEAN CORPUSCULAR VOLUME (BEAKER) 91.8 fL 79.0-92.2 (test code = 753) MEAN CORPUSCULAR HEMOGLOBIN 30.7 pg 25.7-32.2 (BEAKER) (test code = 751) MEAN CORPUSCULAR HEMOGLOBIN CONC 33.4 GM/DL 32.3-36.5 (BEAKER) (test code = 752) RED CELL DISTRIBUTION WIDTH 13.1 % 11.6-14.4 (BEAKER) (test code = 412) PLATELET COUNT (BEAKER) (test 227 K/CU MM 150-450 code = 756) MEAN PLATELET VOLUME (BEAKER) 10.2 fL 9.4-12.4 (test code = 754) NUCLEATED RED BLOOD CELLS 0 /100 WBC 0-0 (BEAKER) (test code = 413) [id number] 13:03:49 Test Item Value Reference Range Interpretation Comments MAGNESIUM (BEAKER) (test code = 1.9 mg/dL 1.6-2.6 627) Signal Tower Operator ID - MELLO MBASIC METABOLIC [id number] 13:03:48 Test Item Value Reference Range Interpretation Comments SODIUM (BEAKER) 140 meq/L 136-145 (test code = 381) POTASSIUM (BEAKER) 4.2 meq/L 3.5-5.1 (test code = 379) CHLORIDE (BEAKER) 108 meq/L 98-107 H (test code = 382) CO2 (BEAKER) (test 26 meq/L 22-29 code = 355) BLOOD UREA NITROGEN 15 mg/dL 7-21 (BEAKER) (test code = 354) CREATININE (BEAKER) 0.72 mg/dL 0.57-1.25 (test code = 358) GLUCOSE RANDOM 127 mg/dL 70-105 H (BEAKER) (test code = 652) CALCIUM (BEAKER) 8.6 mg/dL 8.4-10.2 (test code = 697) EGFR (BEAKER) (test 106 mL/min/1.73 ESTIM ATED GFR IS code = 1092) sq m NOT ACCURATE CREATININE CLEARANCE IN PREDICTING GLOMERULAR FILTRATION RATE . ESTIMATED GFR I S NOT APPLICABLE FOR DIALYSIS PATIEN TS. Signal Tower Operator ID - MELLO MCBC with platelet count + automated [id number] 12:45:02 Test Item Value Reference Range Interpretation Comments WBC (test code = 6690-2) 8.1 See_Comment [A utomated message] The system [employer] generated this result transmitted ref erence range: 3.5 - 10 .5 K/L. The refe rence range was not u sed to interpret this result as normal/abnor mal. RBC (test code = 789-8) 4.30 See_Comment L [Au tomated message] The system [employer] generated this result transmitted ref erence range: 4.63 - 6 .08 M/L. The refe rence range was not u sed to interpret this result as normal/abnor mal. MCHC (test code = 786-4) 33.4 See_Comment L [A utomated message] The system [employer] generated this result transmitted ref erence range: 32.3 - 3 6.5 GM/DL. The refe rence range was not u sed to interpret this result as normal/abnor mal. Hematocrit (test code = 40.1 % 40.1-51.0 4544-3) MCV (test code = 787-2) 93.3 fL 79.0-92.2 H MCH (test code = 785-6) 31.2 pg 25.7-32.2 RDW (test code = 788-0) 13.1 % 11.6-14.4 Platelets (test code = 245 See_Comment [Aut omated message] 777-3) The system [employer] generated this result transmitted ref erence range: 150 - 45 0 K/CU MM. The referen ce range was not u sed to interpret this result as normal/abnor mal. MPV (test code = 9.8 fL 9.4-12.4 59306-5) nRBC (test code = 413) 0 See_Comment [Aut omated message] The system [employer] generated this result transmitted ref erence range: 0 - 0 /1 00 WBC. The refere nce range was not u sed to interpret this result as normal/abnor mal. % Neutros (test code = 79 % 429) % Lymphs (test code = 13 % 430) % Monos (test code = 7 % 431) % Eos (test code = 432) 0 % % Baso (test code = 437) 0 % # Neutros (test code = 6.42 See_Comment H [Aut omated message] 670) The system [employer] generated this result transmitted ref erence range: 1.78 - 5 .38 K/L. The refe rence range was not u sed to interpret this result as normal/abnor mal. # Lymphs (test code = 1.02 See_Comment L [Auto mated message] 414) The system [employer] generated this result transmitted ref erence range: 1.32 - 3 .57 K/L. The refe rence range was not u sed to interpret this result as normal/abnor mal. # Monos (test code = 0.58 See_Comment [Autom ated message] 415) The system [employer] generated this result transmitted ref erence range: 0.30 - 0 .82 K/L. The refe rence range was not u sed to interpret this result as normal/abnor mal. # Eos (test code = 416) 0.01 See_Comment L [Au tomated message] The system [employer] generated this result transmitted ref erence range: 0.04 - 0 .54 K/L. The refe rence range was not u sed to interpret this result as normal/abnor mal. # Baso (test code = 417) 0.03 See_Comment [A utomated message] The system [employer] generated this result transmitted ref erence range: 0.01 - 0 .08 K/L. The refe rence range was not u sed to interpret this result as normal/abnor mal. Immature 1 % 0-1 Granulocytes-Relative (test code = 2801) Lab Interpretation (test Abnormal code = 96663-0) [facility] [id number] 12:45:02 Test Item Value Reference Range Interpretation Comments WBC (test code = 6690-2) 8.1 See_Comment [A utomated message] The system [employer] generated this result transmitted ref erence range: 3.5 - 10 .5 K/L. The refe rence range was not u sed to interpret this result as normal/abnor mal. RBC (test code = 789-8) 4.30 See_Comment L [Au tomated message] The system [employer] generated this result transmitted ref erence range: 4.63 - 6 .08 M/L. The refe rence range was not u sed to interpret this result as normal/abnor mal. MCHC (test code = 786-4) 33.4 See_Comment L [A utomated message] The system [employer] generated this result transmitted ref erence range: 32.3 - 3 6.5 GM/DL. The refe rence range was not u sed to interpret this result as normal/abnor mal. Hematocrit (test code = 40.1 % 40.1-51.0 4544-3) MCV (test code = 787-2) 93.3 fL 79.0-92.2 H MCH (test code = 785-6) 31.2 pg 25.7-32.2 RDW (test code = 788-0) 13.1 % 11.6-14.4 Platelets (test code = 245 See_Comment [Aut omated message] 777-3) The system [employer] generated this result transmitted ref erence range: 150 - 45 0 K/CU MM. The referen ce range was not u sed to interpret this result as normal/abnor mal. MPV (test code = 9.8 fL 9.4-12.4 01573-2) nRBC (test code = 413) 0 See_Comment [Aut omated message] The system [employer] generated this result transmitted ref erence range: 0 - 0 /1 00 WBC. The refere nce range was not u sed to interpret this result as normal/abnor mal. % Neutros (test code = 79 % 429) % Lymphs (test code = 13 % 430) % Monos (test code = 7 % 431) % Eos (test code = 432) 0 % % Baso (test code = 437) 0 % # Neutros (test code = 6.42 See_Comment H [Aut omated message] 670) The system [employer] generated this result transmitted ref erence range: 1.78 - 5 .38 K/L. The refe rence range was not u sed to interpret this result as normal/abnor mal. # Lymphs (test code = 1.02 See_Comment L [Auto mated message] 414) The system [employer] generated this result transmitted ref erence range: 1.32 - 3 .57 K/L. The refe rence range was not u sed to interpret this result as normal/abnor mal. # Monos (test code = 0.58 See_Comment [Autom ated message] 415) The system [employer] generated this result transmitted ref erence range: 0.30 - 0 .82 K/L. The refe rence range was not u sed to interpret this result as normal/abnor mal. # Eos (test code = 416) 0.01 See_Comment L [Au tomated message] The system [employer] generated this result transmitted ref erence range: 0.04 - 0 .54 K/L. The refe rence range was not u sed to interpret this result as normal/abnor mal. # Baso (test code = 417) 0.03 See_Comment [A utomated message] The system [employer] generated this result transmitted ref erence range: 0.01 - 0 .08 K/L. The refe rence range was not u sed to interpret this result as normal/abnor mal. Immature 1 % 0-1 Granulocytes-Relative (test code = 2801) Lab Interpretation (test Abnormal code = 43319-4) [facility] with platelet count + automated [id number] 12:45:02 Test Item Value Reference Range Interpretation Comments WBC (test code = 6690-2) 8.1 See_Comment [A utomated message] The system [employer] generated this result transmitted ref erence range: 3.5 - 10 .5 K/L. The refe rence range was not u sed to interpret this result as normal/abnor mal. RBC (test code = 789-8) 4.30 See_Comment L [Au tomated message] The system [employer] generated this result transmitted ref erence range: 4.63 - 6 .08 M/L. The refe rence range was not u sed to interpret this result as normal/abnor mal. MCHC (test code = 786-4) 33.4 See_Comment L [A utomated message] The system [employer] generated this result transmitted ref erence range: 32.3 - 3 6.5 GM/DL. The refe rence range was not u sed to interpret this result as normal/abnor mal. Hematocrit (test code = 40.1 % 40.1-51.0 4544-3) MCV (test code = 787-2) 93.3 fL 79.0-92.2 H MCH (test code = 785-6) 31.2 pg 25.7-32.2 RDW (test code = 788-0) 13.1 % 11.6-14.4 Platelets (test code = 245 See_Comment [Aut omated message] 777-3) The system [employer] generated this result transmitted ref erence range: 150 - 45 0 K/CU MM. The referen ce range was not u sed to interpret this result as normal/abnor mal. MPV (test code = 9.8 fL 9.4-12.4 23000-8) nRBC (test code = 413) 0 See_Comment [Aut omated message] The system [employer] generated this result transmitted ref erence range: 0 - 0 /1 00 WBC. The refere nce range was not u sed to interpret this result as normal/abnor mal. % Neutros (test code = 79 % 429) % Lymphs (test code = 13 % 430) % Monos (test code = 7 % 431) % Eos (test code = 432) 0 % % Baso (test code = 437) 0 % # Neutros (test code = 6.42 See_Comment H [Aut omated message] 670) The system [employer] generated this result transmitted ref erence range: 1.78 - 5 .38 K/L. The refe rence range was not u sed to interpret this result as normal/abnor mal. # Lymphs (test code = 1.02 See_Comment L [Auto mated message] 414) The system [employer] generated this result transmitted ref erence range: 1.32 - 3 .57 K/L. The refe rence range was not u sed to interpret this result as normal/abnor mal. # Monos (test code = 0.58 See_Comment [Autom ated message] 415) The system [employer] generated this result transmitted ref erence range: 0.30 - 0 .82 K/L. The refe rence range was not u sed to interpret this result as normal/abnor mal. # Eos (test code = 416) 0.01 See_Comment L [Au tomated message] The system [employer] generated this result transmitted ref erence range: 0.04 - 0 .54 K/L. The refe rence range was not u sed to interpret this result as normal/abnor mal. # Baso (test code = 417) 0.03 See_Comment [A utomated message] The system [employer] generated this result transmitted ref erence range: 0.01 - 0 .08 K/L. The refe rence range was not u sed to interpret this result as normal/abnor mal. Immature 1 % 0-1 Granulocytes-Relative (test code = 2801) Lab Interpretation (test Abnormal code = 45585-1) [facility] with platelet count + automated [id number] 12:45:02 Test Item Value Reference Range Interpretation Comments WBC (test code = 6690-2) 8.1 See_Comment [A utomated message] The system [employer] generated this result transmitted ref erence range: 3.5 - 10 .5 K/L. The refe rence range was not u sed to interpret this result as normal/abnor mal. RBC (test code = 789-8) 4.30 See_Comment L [Au tomated message] The system [employer] generated this result transmitted ref erence range: 4.63 - 6 .08 M/L. The refe rence range was not u sed to interpret this result as normal/abnor mal. MCHC (test code = 786-4) 33.4 See_Comment L [A utomated message] The system [employer] generated this result transmitted ref erence range: 32.3 - 3 6.5 GM/DL. The refe rence range was not u sed to interpret this result as normal/abnor mal. Hematocrit (test code = 40.1 % 40.1-51.0 4544-3) MCV (test code = 787-2) 93.3 fL 79.0-92.2 H MCH (test code = 785-6) 31.2 pg 25.7-32.2 RDW (test code = 788-0) 13.1 % 11.6-14.4 Platelets (test code = 245 See_Comment [Aut omated message] 097-3) The system [employer] generated this result transmitted ref erence range: 150 - 45 0 K/CU MM. The referen ce range was not u sed to interpret this result as normal/abnor mal. MPV (test code = 9.8 fL 9.4-12.4 13065-1) nRBC (test code = 413) 0 See_Comment [Aut omated message] The system [employer] generated this result transmitted ref erence range: 0 - 0 /1 00 WBC. The refere nce range was not u sed to interpret this result as normal/abnor mal. % Neutros (test code = 79 % 429) % Lymphs (test code = 13 % 430) % Monos (test code = 7 % 431) % Eos (test code = 432) 0 % % Baso (test code = 437) 0 % # Neutros (test code = 6.42 See_Comment H [Aut omated message] 670) The system [employer] generated this result transmitted ref erence range: 1.78 - 5 .38 K/L. The refe rence range was not u sed to interpret this result as normal/abnor mal. # Lymphs (test code = 1.02 See_Comment L [Auto mated message] 414) The system [employer] generated this result transmitted ref erence range: 1.32 - 3 .57 K/L. The refe rence range was not u sed to interpret this result as normal/abnor mal. # Monos (test code = 0.58 See_Comment [Autom ated message] 415) The system [employer] generated this result transmitted ref erence range: 0.30 - 0 .82 K/L. The refe rence range was not u sed to interpret this result as normal/abnor mal. # Eos (test code = 416) 0.01 See_Comment L [Au tomated message] The system [employer] generated this result transmitted ref erence range: 0.04 - 0 .54 K/L. The refe rence range was not u sed to interpret this result as normal/abnor mal. # Baso (test code = 417) 0.03 See_Comment [A utomated message] The system [employer] generated this result transmitted ref erence range: 0.01 - 0 .08 K/L. The refe rence range was not u sed to interpret this result as normal/abnor mal. Immature 1 % 0-1 Granulocytes-Relative (test code = 2801) Lab Interpretation (test Abnormal code = 73652-7) [facility] W/PLT COUNT & AUTO [id number] 12:45:02 Test Item Value Reference Range Interpretation Comments WHITE BLOOD CELL COUNT (BEAKER) 8.1 K/ L 3.5-10.5 (test code = 775) RED BLOOD CELL COUNT (BEAKER) 4.30 M/ L 4.63-6.08 L (test code = 761) HEMOGLOBIN (BEAKER) (test code = 13.4 GM/DL 13.7-17.5 L 410) HEMATOCRIT (BEAKER) (test code = 40.1 % 40.1-51.0 411) MEAN CORPUSCULAR VOLUME (BEAKER) 93.3 fL 79.0-92.2 H (test code = 753) MEAN CORPUSCULAR HEMOGLOBIN 31.2 pg 25.7-32.2 (BEAKER) (test code = 751) MEAN CORPUSCULAR HEMOGLOBIN CONC 33.4 GM/DL 32.3-36.5 (BEAKER) (test code = 752) RED CELL DISTRIBUTION WIDTH 13.1 % 11.6-14.4 (BEAKER) (test code = 412) PLATELET COUNT (BEAKER) (test 245 K/CU MM 150-450 code = 756) MEAN PLATELET VOLUME (BEAKER) 9.8 fL 9.4-12.4 (test code = 754) NUCLEATED RED BLOOD CELLS 0 /100 WBC 0-0 (BEAKER) (test code = 413) NEUTROPHILS RELATIVE PERCENT 79 % (BEAKER) (test code = 429) LYMPHOCYTES RELATIVE PERCENT 13 % (BEAKER) (test code = 430) MONOCYTES RELATIVE PERCENT 7 % (BEAKER) (test code = 431) EOSINOPHILS RELATIVE PERCENT 0 % (BEAKER) (test code = 432) BASOPHILS RELATIVE PERCENT 0 % (BEAKER) (test code = 437) NEUTROPHILS ABSOLUTE COUNT 6.42 K/ L 1.78-5.38 H (BEAKER) (test code = 670) LYMPHOCYTES ABSOLUTE COUNT 1.02 K/ L 1.32-3.57 L (BEAKER) (test code = 414) MONOCYTES ABSOLUTE COUNT (BEAKER) 0.58 K/ L 0.30-0.82 (test code = 415) EOSINOPHILS ABSOLUTE COUNT 0.01 K/ L 0.04-0.54 L (BEAKER) (test code = 416) BASOPHILS ABSOLUTE COUNT (BEAKER) 0.03 K/ L 0.01-0.08 (test code = 417) IMMATURE GRANULOCYTES-RELATIVE 1 % 0-1 PERCENT (BEAKER) (test code = 2801) Prepare Leuko-Red [id number] 09:36:00 Test Item Value Reference Range Interpretation Comments CROSSMATCH (test code = COMPATIBLE 2264) Unit ABO (test code = A Pos 0703478) UNIT NUMBER (test code = [id number] 934-0) Status (test code = RETURNED FROM ISSUE 15100920) Blood Bank Product (test RED BLOOD CELLS code = 2263) PRODUCT CODE (test code = [id number] 933-2) [facility] [id number] 09:36:00 Test Item Value Reference Range Interpretation Comments CROSSMATCH (test code = COMPATIBLE 2264) Unit ABO (test code = A Pos 5568759) UNIT NUMBER (test code = [id number] 934-0) Status (test code = RETURNED FROM ISSUE 15100920) Blood Bank Product (test RED BLOOD CELLS code = 2263) PRODUCT CODE (test code = [id number] 933-2) [facility] [id number] 09:36:00 Test Item Value Reference Range Interpretation Comments CROSSMATCH (test code = COMPATIBLE 2264) Unit ABO (test code = A Pos 5696503) UNIT NUMBER (test code = [id number] 934-0) Status (test code = RETURNED FROM ISSUE 15100920) Blood Bank Product (test RED BLOOD CELLS code = 2263) PRODUCT CODE (test code = R7296B64 933-2) [facility] [id number] 09:36:00 Test Item Value Reference Range Interpretation Comments CROSSMATCH (test code = COMPATIBLE 2264) Unit ABO (test code = A Pos 8607272) UNIT NUMBER (test code = [id number] 934-0) Status (test code = RETURNED FROM ISSUE 15100920) Blood Bank Product (test RED BLOOD CELLS code = 2263) PRODUCT CODE (test code = F6599S77 933-2) [facility] [id number] 07:18:00 Test Item Value Reference Range Interpretation Comments ABO Grouping (test code = 2588) A Rh Factor (test code = 2589) POS [facility], [id number] 07:18:00 Test Item Value Reference Range Interpretation Comments ABO Grouping (test code = 2588) A Rh Factor (test code = 2589) POS [facility], [id number] 07:18:00 Test Item Value Reference Range Interpretation Comments ABO Grouping (test code = 2588) A Rh Factor (test code = 2589) POS [facility], [id number] 07:18:00 Test Item Value Reference Range Interpretation Comments ABO Grouping (test code = 2588) A Rh Factor (test code = 2589) POS [facility], [id number] 07:01:00 Test Item Value Reference Range Interpretation Comments ABO/RH AUTOMATED (BEAKER) (test A POSITIVE code = 2260) Ab Scrn (test code = 890-4) NEGATIVE [facility], [id number] 07:01:00 Test Item Value Reference Range Interpretation Comments ABO/RH AUTOMATED (BEAKER) (test A POSITIVE code = 2260) Ab Scrn (test code = 890-4) NEGATIVE [facility], [id number] 07:01:00 Test Item Value Reference Range Interpretation Comments ABO/RH AUTOMATED (BEAKER) (test A POSITIVE code = 2260) Ab Scrn (test code = 890-4) NEGATIVE [facility], [id number] 07:01:00 Test Item Value Reference Range Interpretation Comments ABO/RH AUTOMATED (BEAKER) (test A POSITIVE code = 2260) Ab Scrn (test code = 890-4) [facility]2021-08-15 23:52:31 Test Item Value Reference Range Interpretation Comments SARS-COV2/RT-PCR (test Negative Negative code = 01908-6) FAYE (test code = FAYE) Negative result for this test determines that SARS-CoV-2 RNA was not present in the specimen above the Limit of Detection (LOD). However, Negative results do not preclude SARS-CoV-2 infection and should not be used as the sole basis for treatment or patient management decisions. Negative results must be combined with clinical observations, patient history, and epidemiological information. A false negative result may occur if a specimen is improperly collected, transported, or handled. A false negative result should be considered if patient's recent exposures or clinical presentation indicate that COVID-19 (SARS-CoV-2) is likely and diagnostic tests for other causes of illness are negative. Re-testing should be considered in cases of suspected false negatives. The limit of detection for this assay is 100 copies/mL. This SARS-CoV-2 test is a real-time RT_PCR test intended for the qualitative detection of nucleic acid from SARS-CoV-2 in a nasopharyngeal swab specimen collected from individuals suspected of COVID-19 by their healthcare provider. This test has not been Food and Drug Administration (FDA) cleared or approved. This is a modified version of an approved Emergency Use Authorization (EUA) and is in the process of review by the FDA. Once authorized by the FDA, the issued EUA will be effective until the declaration that circumstances exist justifying the authorization of the emergency use of in vitro diagnostic tests for detection and/or diagnosis of COVID-19 is terminated under Section 564(b)(2) of the Act or the EUA is revoked under Section 564(g) of the Act. Testing was performed using the [employer] SARS-CoV-2 assay. Fact Sheet for Healthcare Providers:https://www.deysi sheppard/antionette/RT SARS-CoV-2 HCP Fact Sheet 51-688125.pdf Fact Sheet for Healthcare Patients:https://www.mary barragan/antionette/RT SARS-CoV-2 Patient Fact Sheet EN 51-292289V7.pdf Lab Interpretation Normal (test code = 31642-4) [facility]2021-08-15 23:52:31 Test Item Value Reference Range Interpretation Comments SARS-COV2/RT-PCR (test Negative Negative code = 66469-3) FAYE (test code = FAYE) Negative result for this test determines that SARS-CoV-2 RNA was not present in the specimen above the Limit of Detection (LOD). However, Negative results do not preclude SARS-CoV-2 infection and should not be used as the sole basis for treatment or patient management decisions. Negative results must be combined with clinical observations, patient history, and epidemiological information. A false negative result may occur if a specimen is improperly collected, transported, or handled. A false negative result should be considered if patient's recent exposures or clinical presentation indicate that COVID-19 (SARS-CoV-2) is likely and diagnostic tests for other causes of illness are negative. Re-testing should be considered in cases of suspected false negatives. The limit of detection for this assay is 100 copies/mL. This SARS-CoV-2 test is a real-time RT_PCR test intended for the qualitative detection of nucleic acid from SARS-CoV-2 in a nasopharyngeal swab specimen collected from individuals suspected of COVID-19 by their healthcare provider. This test has not been Food and Drug Administration (FDA) cleared or approved. This is a modified version of an approved Emergency Use Authorization (EUA) and is in the process of review by the FDA. Once authorized by the FDA, the issued EUA will be effective until the declaration that circumstances exist justifying the authorization of the emergency use of in vitro diagnostic tests for detection and/or diagnosis of COVID-19 is terminated under Section 564(b)(2) of the Act or the EUA is revoked under Section 564(g) of the Act. Testing was performed using the [employer] SARS-CoV-2 assay. Fact Sheet for Healthcare Providers:https://www.deysi sheppard/antionette/RT SARS-CoV-2 HCP Fact Sheet 51-798083.pdf Fact Sheet for Healthcare Patients:https://www.mary barragan/antionette/RT SARS-CoV-2 Patient Fact Sheet EN 51-833518G1.pdf Lab Interpretation Normal (test code = 80277-2) [facility]2021-08-15 23:52:31 Test Item Value Reference Range Interpretation Comments SARS-COV2/RT-PCR (test Negative Negative code = 40761-0) FAYE (test code = FAYE) Negative result for this test determines that SARS-CoV-2 RNA was not present in the specimen above the Limit of Detection (LOD). However, Negative results do not preclude SARS-CoV-2 infection and should not be used as the sole basis for treatment or patient management decisions. Negative results must be combined with clinical observations, patient history, and epidemiological information. A false negative result may occur if a specimen is improperly collected, transported, or handled. A false negative result should be considered if patient's recent exposures or clinical presentation indicate that COVID-19 (SARS-CoV-2) is likely and diagnostic tests for other causes of illness are negative. Re-testing should be considered in cases of suspected false negatives. The limit of detection for this assay is 100 copies/mL. This SARS-CoV-2 test is a real-time RT_PCR test intended for the qualitative detection of nucleic acid from SARS-CoV-2 in a nasopharyngeal swab specimen collected from individuals suspected of COVID-19 by their healthcare provider. This test has not been Food and Drug Administration (FDA) cleared or approved. This is a modified version of an approved Emergency Use Authorization (EUA) and is in the process of review by the FDA. Once authorized by the FDA, the issued EUA will be effective until the declaration that circumstances exist justifying the authorization of the emergency use of in vitro diagnostic tests for detection and/or diagnosis of COVID-19 is terminated under Section 564(b)(2) of the Act or the EUA is revoked under Section 564(g) of the Act. Testing was performed using the [employer] SARS-CoV-2 assay. Fact Sheet for Healthcare Providers:https://www.deysi sheppard/antionette/RT SARS-CoV-2 HCP Fact Sheet 51-800711.pdf Fact Sheet for Healthcare Patients:https://www.mary barragan/antionette/RT SARS-CoV-2 Patient Fact Sheet EN 51-864506I4.pdf Lab Interpretation Normal (test code = 90803-9) [facility]2021-08-15 23:52:31 Test Item Value Reference Range Interpretation Comments SARS-COV2/RT-PCR (test Negative Negative code = 20639-2) FAYE (test code = FAYE) Negative result for this test determines that SARS-CoV-2 RNA was not present in the specimen above the Limit of Detection (LOD). However, Negative results do not preclude SARS-CoV-2 infection and should not be used as the sole basis for treatment or patient management decisions. Negative results must be combined with clinical observations, patient history, and epidemiological information. A false negative result may occur if a specimen is improperly collected, transported, or handled. A false negative result should be considered if patient's recent exposures or clinical presentation indicate that COVID-19 (SARS-CoV-2) is likely and diagnostic tests for other causes of illness are negative. Re-testing should be considered in cases of suspected false negatives. The limit of detection for this assay is 100 copies/mL. This SARS-CoV-2 test is a real-time RT_PCR test intended for the qualitative detection of nucleic acid from SARS-CoV-2 in a nasopharyngeal swab specimen collected from individuals suspected of COVID-19 by their healthcare provider. This test has not been Food and Drug Administration (FDA) cleared or approved. This is a modified version of an approved Emergency Use Authorization (EUA) and is in the process of review by the FDA. Once authorized by the FDA, the issued EUA will be effective until the declaration that circumstances exist justifying the authorization of the emergency use of in vitro diagnostic tests for detection and/or diagnosis of COVID-19 is terminated under Section 564(b)(2) of the Act or the EUA is revoked under Section 564(g) of the Act. Testing was performed using the [employer] SARS-CoV-2 assay. Fact Sheet for Healthcare Providers:https://www.deysi sheppard/antionette/RT SARS-CoV-2 HCP Fact Sheet 51-896431.pdf Fact Sheet for Healthcare Patients:https://www.mary barragan/antionette/RT SARS-CoV-2 Patient Fact Sheet EN 51-104026Y9.pdf Lab Interpretation Normal (test code = 17757-3) [facility]2021-08-15 23:52:31 Test Item Value Reference Range Interpretation Comments SARS-COV2/RT-PCR (test code = Negative Negative [id number]) Negative result for this test determines that SARS-CoV-2 RNA was not present in the specimen above the Limit of Detection (LOD). However, Negative results do not preclude SARS-CoV-2 infection and should not be used as the sole basis for treatment or patient management decisions. Negative results must be combined with clinical observations, patient history, and epidemiological information. A false negative result may occur if a specimen is improperly collected, transported, or handled. A false negative result should be considered if patient's recent exposures or clinical presentation indicate that COVID-19 (SARS-CoV-2) is likely and diagnostic tests for other causes of illness are negative. Re-testing should be considered in cases of suspected false negatives.The limit of detection for this assay is 100 copies/mL.This SARS-CoV-2 test is a real-time RT_PCR test intended for the qualitative detection of nucleic acid from SARS-CoV-2 in a nasopharyngeal swab specimen collected from individuals suspected of COVID-19 by their healthcare provider.This test has not been Food and Drug Administration (FDA) cleared or approved. This is a modified version of an approved Emergency Use Authorization (EUA) and is in the process of review by the FDA. Once authorized by the FDA, the issued EUA will be effective until the declaration that circumstances exist justifying the authorization of the emergency use of in vitro diagnostic tests for detection and/or diagnosis of COVID-19 is terminated under Section 564(b)(2) of the Act or the EUA is revoked under Section 564(g) of the Act.Testing was performed using [employer] SARS-CoV-2 assay.Fact Sheet for Healthcare Providers:https://www.Dentalink.reynolds/antionette/RT SARS-CoV-2 HCP Fact Sheet 51- 138126.pdfFact Sheet for Healthcare Patients:https://www.Dentalink.reynolds/antionette/RT SARS-CoV-2 Patient Fact Sheet EN 51-757695Q2.pdfBASIC METABOLIC [id number] 13:43:24 Test Item Value Reference Range Interpretation Comments SODIUM (BEAKER) 144 meq/L 136-145 (test code = 381) POTASSIUM (BEAKER) 3.8 meq/L 3.5-5.1 (test code = 379) CHLORIDE (BEAKER) 105 meq/L 98-107 (test code = 382) CO2 (BEAKER) (test 32 meq/L 22-29 H code = 355) BLOOD UREA NITROGEN 14 mg/dL 7-21 (BEAKER) (test code = 354) CREATININE (BEAKER) 0.80 mg/dL 0.57-1.25 (test code = 358) GLUCOSE RANDOM 107 mg/dL 70-105 H (BEAKER) (test code = 652) CALCIUM (BEAKER) 9.5 mg/dL 8.4-10.2 (test code = 697) EGFR (BEAKER) (test 93 mL/min/1.73 ESTIMA ALEXANDRE GFR IS code = 1092) sq m NOT ACCURATE CREATININE CLEARANCE IN PREDICTING GLOMERULAR FILTRATION RATE . ESTIMATED GFR I S NOT APPLICABLE FOR DIALYSIS PATIEN TS. Signal Tower Operator ID - ADMINProthrombin time/[id number] 13:41:44 Test Item Value Reference Interpretation Comments Range Protime (test code = 12.8 See_Comment [Autom ated 5902-2) message] The system which generated this result transmitted reference range : 11.9 - 14.2 seconds. The reference range was not used to interpret this result as normal/abnormal . INR (test code = 0.98 See_Comment [Automated Mineful1-6) message] The system which generated this result transmitted reference range : <=5.90. The reference range was not used to interpret this result as normal/abnormal . FAYE (test code = RECOMMENDED FAYE) COUMADIN/WARFARIN INR THERAPY RANGESSTANDARD DOSE: 2.0 - 3.0 Includes: PROPHYLAXIS for venous thrombosis, systemic embolization; TREATMENT for venous thrombosis and/or pulmonary embolus.HIGH RISK: Target INR is 2.5-3.5 for patients with mechanical heart valves. Lab Interpretation Normal (test code = 87397-4) [facility]/[id number] 13:41:44 Test Item Value Reference Interpretation Comments Range Protime (test code = 12.8 See_Comment [Autom ated 5902-2) message] The system which generated this result transmitted reference range : 11.9 - 14.2 seconds. The reference range was not used to interpret this result as normal/abnormal . INR (test code = 0.98 See_Comment [Automated 6301-6) message] The system which generated this result transmitted reference range : <=5.90. The reference range was not used to interpret this result as normal/abnormal . FAYE (test code = RECOMMENDED FAYE) COUMADIN/WARFARIN INR THERAPY RANGESSTANDARD DOSE: 2.0 - 3.0 Includes: PROPHYLAXIS for venous thrombosis, systemic embolization; TREATMENT for venous thrombosis and/or pulmonary embolus.HIGH RISK: Target INR is 2.5-3.5 for patients with mechanical heart valves. Lab Interpretation Normal (test code = 79831-2) [facility] Center[facility] time/[id number] 13:41:44 Test Item Value Reference Interpretation Comments Range Protime (test code = 12.8 See_Comment [Autom ated 5902-2) message] The system which generated this result transmitted reference range : 11.9 - 14.2 seconds. The reference range was not used to interpret this result as normal/abnormal . INR (test code = 0.98 See_Comment [Automated 6301-6) message] The system which generated this result transmitted reference range : <=5.90. The reference range was not used to interpret this result as normal/abnormal . FAYE (test code = RECOMMENDED FAYE) COUMADIN/WARFARIN INR THERAPY RANGESSTANDARD DOSE: 2.0 - 3.0 Includes: PROPHYLAXIS for venous thrombosis, systemic embolization; TREATMENT for venous thrombosis and/or pulmonary embolus.HIGH RISK: Target INR is 2.5-3.5 for patients with mechanical heart valves. Lab Interpretation Normal (test code = 11282-3) [facility] Center[facility] time/[id number] 13:41:44 Test Item Value Reference Interpretation Comments Range Protime (test code = 12.8 See_Comment [Autom ated 5902-2) message] The system which generated this result transmitted reference range : 11.9 - 14.2 seconds. The reference range was not used to interpret this result as normal/abnormal . INR (test code = 0.98 See_Comment [Automated 6301-6) message] The system which generated this result transmitted reference range : <=5.90. The reference range was not used to interpret this result as normal/abnormal . FAYE (test code = RECOMMENDED FAYE) COUMADIN/WARFARIN INR THERAPY RANGESSTANDARD DOSE: 2.0 - 3.0 Includes: PROPHYLAXIS for venous thrombosis, systemic embolization; TREATMENT for venous thrombosis and/or pulmonary embolus.HIGH RISK: Target INR is 2.5-3.5 for patients with mechanical heart valves. Lab Interpretation Normal (test code = 68476-0) [facility] CenterPROTHROM[facility] TIME/[id number] 13:41:44 Test Item Value Reference Range Interpretation Comments PROTIME (BEAKER) 12.8 seconds 11.9-14.2 (test code = 759) INR (BEAKER) (test 0.98 See_Comment [Automat ed message] code = 370) The system [employer] generated this result transmitted ref erence range: <=5.90. The reference range was not used to int erpret this result as normal/abnormal . RECOMMENDED COUMADIN/WARFARIN INR THERAPY RANGESSTANDARD DOSE: 2.0 - 3.0 Includes: PROPHYLAXIS for venous thrombosis, systemic embolization; TREATMENT for venous thrombosis and/or pulmonary embolus.HIGH RISK: Target INR is 2.5-3.5 for patients with mechanical heart valves.CBC W/PLT COUNT & AUTO [id number] 13:34:44 Test Item Value Reference Range Interpretation Comments WHITE BLOOD CELL COUNT (BEAKER) 8.5 K/ L 3.5-10.5 (test code = 775) RED BLOOD CELL COUNT (BEAKER) 4.95 M/ L 4.63-6.08 (test code = 761) HEMOGLOBIN (BEAKER) (test code = 15.2 GM/DL 13.7-17.5 410) HEMATOCRIT (BEAKER) (test code = 46.0 % 40.1-51.0 411) MEAN CORPUSCULAR VOLUME (BEAKER) 92.9 fL 79.0-92.2 H (test code = 753) MEAN CORPUSCULAR HEMOGLOBIN 30.7 pg 25.7-32.2 (BEAKER) (test code = 751) MEAN CORPUSCULAR HEMOGLOBIN CONC 33.0 GM/DL 32.3-36.5 (BEAKER) (test code = 752) RED CELL DISTRIBUTION WIDTH 13.2 % 11.6-14.4 (BEAKER) (test code = 412) PLATELET COUNT (BEAKER) (test 278 K/CU MM 150-450 code = 756) MEAN PLATELET VOLUME (BEAKER) 10.0 fL 9.4-12.4 (test code = 754) NUCLEATED RED BLOOD CELLS 0 /100 WBC 0-0 (BEAKER) (test code = 413) NEUTROPHILS RELATIVE PERCENT 66 % (BEAKER) (test code = 429) LYMPHOCYTES RELATIVE PERCENT 22 % (BEAKER) (test code = 430) MONOCYTES RELATIVE PERCENT 9 % (BEAKER) (test code = 431) EOSINOPHILS RELATIVE PERCENT 2 % (BEAKER) (test code = 432) BASOPHILS RELATIVE PERCENT 1 % (BEAKER) (test code = 437) NEUTROPHILS ABSOLUTE COUNT 5.63 K/ L 1.78-5.38 H (BEAKER) (test code = 670) LYMPHOCYTES ABSOLUTE COUNT 1.83 K/ L 1.32-3.57 (BEAKER) (test code = 414) MONOCYTES ABSOLUTE COUNT (BEAKER) 0.72 K/ L 0.30-0.82 (test code = 415) EOSINOPHILS ABSOLUTE COUNT 0.17 K/ L 0.04-0.54 (BEAKER) (test code = 416) BASOPHILS ABSOLUTE COUNT (BEAKER) 0.06 K/ L 0.01-0.08 (test code = 417) IMMATURE GRANULOCYTES-RELATIVE 1 % 0-1 PERCENT (BEAKER) (test code = 2801)
[2022-07-08 16:19] LABS: Absolute Lymphocytes (CBC) 2.6 K/uL (0.7-4.9); Hematocrit 48.6 % (39.6-49.0); Lymphocytes % 23.9 % (15.3-44.8); MPV 8.6 fL (7.6-11.3); RBC Red Blood Cell Count 5.34 M/uL (4.33-5.43)
[2022-07-08 16:30] LABS: Arterial Blood Carboxyhemoglob 1.8 % (0-1.5); Blood Gas Oxyhemoglobin 92.5 % (94-97); Blood O2 Saturation 95.4 % (92-98.5)
[2022-07-08 16:42] LABS: Albumin 3.9 g/dL (3.4-5.0); Bilirubin Total 2.3 mg/dL (0.2-1.0); Potassium 3.9 mmol/L (3.5-5.1); Protein, Total 7.4 g/dL (6.4-8.2); Troponin High Sensitivity 17.3 pg/mL (<58.9)
--- NOTE | 2022-07-08 16:45 | RAD REPORT ---
EXAM DESCRIPTION: RAD - Chest Single View - 07/08/2022 4:34 pm CLINICAL HISTORY: COPD COMPARISON: Two view chest 07/09/2021 TECHNIQUE: AP portable chest image was obtained 07/08/2022 4:34 pm . FINDINGS: Patient has a baseline of significant COPD with hyper expanded lung manuel, fibrosis and f lattened diaphragm. The baseline interstitial pattern is not substantially different. The patient has interstitial and alveolar opacities at the right lung base that are new from prior imaging and typic al for pneumonia. Left lung base findings are not significantly different from prior imaging. Heart and vasculature are normal. No measurable pleural effusion and no pneumothorax. No acute bony abnormality seen. No acute aortic findings suspected. IMPRESSION: Mild right lung base pneumonia superimposed on prominent COPD.
[2022-07-08] MEDS ORDERED: AZITHROMYCIN 500 MG INJ IVPB ONE (16:56)
[2022-07-08] MEDS ORDERED: CEFTRIAXONE 2000 MG/VIAL ONE (16:56)
[2022-07-08] MEDS ORDERED: NA CHLORIDE 0.9% 250 ML ONE (16:57)
[2022-07-08] MEDS ORDERED: IPRATROPIUM BROM 0.5MG/2.5ML ONE (16:57)
[2022-07-08] MEDS ORDERED: NA CHLORIDE 0.9% 100 ML IV ONE (16:57)
[2022-07-08 18:14] LABS: SARS-COV-2 RT PCR NEGATIVE (NEGATIVE)
--- NOTE | 2022-07-08 18:51 | ER ---
Nurse's Notes [facility] Name: Jasbir Flores Age: 77 yrs Sex: Male : 1945 Arrival Date: 07/08/2022 Time: 15:43 Bed 5 Private MD: Diagnosis: Acute respiratory failure;Unspecified bacterial pneumonia Presentation: 07/08 15:56 Chief complaint: EMS states: diff breathing since yesterday , hx of copd, fever today iw of 102. Coronavirus screen: Client presents with at least one sign or symptom that may indicate coronavirus-19. Ebola Screen: Patient negative for fever greater than or equal to 101.5 degrees Fahrenheit, and additional compatible Ebola Virus Disease symptoms Patient denies exposure to infectious person. Patient denies travel to an Ebola-affected area in the 21 days before illness onset. No symptoms or risks identified at this time. Initial Sepsis Screen: Does the patient meet any 2 criteria? RR > 20 per min. HR > 90 bpm. Yes Does the patient have a suspected source of infection? Yes: Productive cough/pneumonia. Risk Assessment: Do you want to hurt yourself or someone else? Patient reports no desire to harm self or others. 15:56 Method Of Arrival: EMS: [facility] iw 15:56 Acuity: MONICA 2 iw 21:39 Onset of symptoms was July 08, 2022. kd3 Triage Assessment: 21:39 General: Appears uncomfortable, Behavior is cooperative. Neuro: Level of Consciousness kd3 is awake, alert, Oriented to person, place, time. Cardiovascular: Patient's skin is warm and dry. Respiratory: Reports shortness of breath at rest Onset: The symptoms/episode began/occurred gradually, the patient has moderate shortness of breath. Historical: - Allergies: 16:33 No Known Allergies; iw - Home Meds: 16:33 Advair Diskus Inhl [Active]; amlodipine 5 mg tab 1 tab once daily [Active]; iw glycopyrrolate inhalation [Active]; prednisone 10 mg Oral tab 1 tab 2 times per day [Active]; rosuvastatin 10 mg Oral tab 1 tab once daily [Active]; tamsulosin 0.4 mg Oral cp24 1 cap once daily [Active]; - PMHx: 16:33 Bladder cancer; Emphysema; Hyperlipidemia; Hypertension; iw - PSHx: 16:33 Appendectomy; iw - Immunization history:: Adult Immunizations up to date. - Social history:: Smoking status: unknown. Screenin:43 [facility] ED Fall Risk Assessment (Adult) History of falling in the last 3 months, iw including since admission No falls in past 3 months (0 pts). Abuse screen: Denies threats or abuse. Denies injuries from another. Nutritional screening: No deficits noted. Tuberculosis screening: No symptoms or risk factors identified. Assessment: 17:44 Reassessment: Patient appears in no apparent distress at this time. Patient and/or iw family updated on plan of care and expected duration. Pain level reassessed. pt feeling better, appears more relaxed , remains on bipap. 18:43 Reassessment: Patient appears in no apparent distress at this time. Patient and/or iw family updated on plan of care and expected duration. Pain level reassessed. pt appears to be asleep, at bedside , VSS. 21:38 General: Appears in no apparent distress. Behavior is agitated. Pain: Denies pain. kd3 Cardiovascular: Rhythm is regular. Respiratory: Airway is patent Respiratory effort is even, unlabored, Breath sounds are diminished bilaterally. Vital Signs: 15:56 BP 167 / 84; Pulse 146; Resp 32; Temp 97.9(TE); Pulse Ox 98% on BiPAP; iw 16:31 Pulse 126; Resp 20 S; Pulse Ox 98% on BiPAP; Weight 72.57 kg; Height 5 ft. 9 in. iw (175.26 cm); 17:44 BP 124 / 79; Pulse 105; Resp 22; Temp 98.2; Pulse Ox 98% on BiPAP; iw 18:42 BP 119 / 83; Pulse 94; Resp 20; Pulse Ox 98% on BiPAP; Pain 0/10; iw 20:11 BP 121 / 79; Pulse 80; Resp 20; Pulse Ox 99% ; rv1 21:37 BP 114 / 67; Pulse 81; Resp 19; Pulse Ox 100% on BiPAP; kd3 16:31 Body Mass Index 23.63 (72.57 kg, 175.26 cm) iw ED Course: 15:43 Patient arrived in ED. eb 15:47 George Weems MD is Attending Physician. rt 16:00 Triage completed. iw 16:12 Marce Roberts, RN is Primary Nurse. iw 16:31 Inserted saline lock: 20 gauge in left forearm, using aseptic technique. Blood rs5 collected. 16:32 Inserted saline lock: 20 gauge in right hand, using aseptic technique. Blood collected. rs5 16:32 Blood Culture Adult (2) Sent. rs5 16:32 Lactate w/ 2H reflex if indic. Sent. rs5 16:32 BNP Sent. rs5 16:32 Troponin High Sensitivity Sent. rs5 16:33 CMP Sent. rs5 16:33 Arm band placed on. iw 16:36 Chest Single View XRAY In Process Unspecified. EDMS 18:43 Patient has correct armband on for positive identification. Client placed on continuous iw cardiac and pulse oximetry monitoring. NIBP monitoring applied. legal entity controller on. 18:49 Kaiden Molina is Hospitalizing Provider. rt 20:32 Malcom Sim MD is Hospitalizing Provider. sb4 21:38 No provider procedures requiring assistance completed. kd3 22:23 Patient admitted, IV remains in place. kd3 Administered Medications: 16:30 Drug: DuoNeb (albuterol 2.5 mg, ipratropium 0.5 mg) (3:1) (2.5 mg - 0.5 mg) 3 ml Route: iw Nebulizer; 17:28 Drug: Rocephin (cefTRIAXone) 2 grams Route: IV; Rate: calculated rate; Site: left iw antecubital; 17:43 Drug: AZITHromycin 500 mg Route: IVPB; Infused Over: 1 hrs; Site: left antecubital; iw Medication: 21:40 VIS not applicable for this client. kd3 Outcome: 18:50 Decision to Hospitalize by Provider. rt 21:39 Condition: stable kd3 22:22 Admitted to Med/surg kd3 22:22 Discharge instructions given to patient. 22:24 Patient left the ED. kd3 Signatures: Dispatcher [employer] EDMS Marce Roberts RN RN iw Jaleesa Krishna Kyli RN RN kd3 Angie Wilson PA-C PAJessie sb4 George Weems MD MD rt Karen Viera rv1 Ghulam Maciel rs5 Corrections: (The following items were deleted from the chart) 16:29 15:56 BP 167 / 84; Pulse 146bpm; Resp 32bpm; Pulse Ox 98% BiPAP; iw iw
--- NOTE | 2022-07-08 18:51 | EDPHYS ---
Physician Documentation [facility] Name: Jasbir Flores Age: 77 yrs Sex: Male : 1945 Arrival Date: 07/08/2022 Time: 15:43 Bed 5 Private MD: ED Physician George Weems HPI: 07/08 17:49 This 77 yrs old Male presents to ER via EMS with complaints of Breathing Difficulty. rt 17:49 The patient has shortness of breath at rest, with light activity. Onset: The rt symptoms/episode began/occurred 1 week(s) ago. Duration: The symptoms are continuous. The patient's shortness of breath is aggravated by exertion. Associated signs and symptoms: Pertinent positives: non-productive cough. Severity of symptoms: At their worst the symptoms were severe. Patient presents to the ED with dyspnea that has been worsening over the past week. Patient developed respiratory distress today. Patient is known COPD, developed a fever today. Symptoms are severe in severity, no other aggravating or alleviating factors.. Historical: - Allergies: 16:33 No Known Allergies; iw - Home Meds: 16:33 Advair Diskus Inhl [Active]; amlodipine 5 mg tab 1 tab once daily [Active]; iw glycopyrrolate inhalation [Active]; prednisone 10 mg Oral tab 1 tab 2 times per day [Active]; rosuvastatin 10 mg Oral tab 1 tab once daily [Active]; tamsulosin 0.4 mg Oral cp24 1 cap once daily [Active]; - PMHx: 16:33 Bladder cancer; Emphysema; Hyperlipidemia; Hypertension; iw - PSHx: 16:33 Appendectomy; iw - Immunization history:: Adult Immunizations up to date. - Social history:: Smoking status: unknown. ROS: 17:49 Eyes: Negative for injury, pain, redness, and discharge, ENT: Negative for injury, rt pain, and discharge, Neck: Negative for injury, pain, and swelling, Cardiovascular: Negative for chest pain, palpitations, and edema, Abdomen/GI: Negative for abdominal pain, nausea, vomiting, diarrhea, and constipation, MS/Extremity: Negative for injury and deformity, Skin: Negative for injury, rash, and discoloration, Neuro: Negative for headache, weakness, numbness, tingling, and seizure, Psych: Negative for depression, anxiety, suicide ideation, homicidal ideation, and hallucinations. 17:49 Constitutional: Positive for fever, malaise. 17:49 Respiratory: Positive for cough, shortness of breath. Exam: 17:49 Cardiovascular: Tachycardic, regular rhythm, heart sounds normal. rt 17:49 Respiratory: Decreased breath sounds in all lung manuel, respiratory distress with accessory muscle usage.. Vital Signs: 15:56 BP 167 / 84; Pulse 146; Resp 32; Temp 97.9(TE); Pulse Ox 98% on BiPAP; iw 16:31 Pulse 126; Resp 20 S; Pulse Ox 98% on BiPAP; Weight 72.57 kg; Height 5 ft. 9 in. iw (175.26 cm); 17:44 BP 124 / 79; Pulse 105; Resp 22; Temp 98.2; Pulse Ox 98% on BiPAP; iw 18:42 BP 119 / 83; Pulse 94; Resp 20; Pulse Ox 98% on BiPAP; Pain 0/10; iw 20:11 BP 121 / 79; Pulse 80; Resp 20; Pulse Ox 99% ; rv1 21:37 BP 114 / 67; Pulse 81; Resp 19; Pulse Ox 100% on BiPAP; kd3 16:31 Body Mass Index 23.63 (72.57 kg, 175.26 cm) iw MDM: 15:48 Patient medically screened. rt 17:57 Data reviewed: vital signs, nurses notes. rt 18:50 Differential diagnosis: CHF exacerbation, Chronic Obstructive Pulmonary Disease rt Myocardial Infarction pneumonia, Pneumothorax pulmonary edema, Pulmonary Embolism. 07/08 15:57 Order name: CBC with Diff; Complete Time: 17:25 rt 07/08 15:57 Order name: CMP; Complete Time: 17:25 rt 07/08 15:57 Order name: BNP; Complete Time: 17:25 rt 07/08 15:57 Order name: Troponin High Sensitivity; Complete Time: 17:25 rt 07/08 15:57 Order name: Lactate w/ 2H reflex if indic.; Complete Time: 17:25 rt 07/08 15:57 Order name: Blood Culture Adult (2) rt 07/08 15:57 Order name: Chest Single View XRAY; Complete Time: 17:25 rt 07/08 15:57 Order name: BIPAP rt 07/08 16:28 Order name: COVID-19/FLU A+B; Complete Time: 18:29 iw 07/08 16:32 Order name: ABG Arterial Blood Gas; Complete Time: 17:25 EDMS 07/08 16:37 Order name: ABG Arterial Blood Gas EDMS 07/08 20:07 Order name: Lactate Sepsis 2 HR Follow-up EDMS EC:49 Rate is 140 beats/min. Rhythm is regular, Sinus tachycardia with No ectopy. Left axis rt deviation noted. MN interval is normal. QRS interval is normal. QT interval is normal. No Q waves. T waves are Normal. No ST changes noted. Interpreted by me. Administered Medications: 16:30 Drug: DuoNeb (albuterol 2.5 mg, ipratropium 0.5 mg) (3:1) (2.5 mg - 0.5 mg) 3 ml Route: iw Nebulizer; 17:28 Drug: Rocephin (cefTRIAXone) 2 grams Route: IV; Rate: calculated rate; Site: left iw antecubital; 17:43 Drug: AZITHromycin 500 mg Route: IVPB; Infused Over: 1 hrs; Site: left antecubital; iw Disposition: 17:57 Critical Care:. rt Disposition Summary: 07/08/22 18:50 Hospitalization Ordered Hospitalization Status: Inpatient Admission rt Condition: Guarded rt Problem: new rt Symptoms: have improved rt Bed/Room Type: Standard rt Provider: Malcom Sim(07/08/22 20:32) sb4 Location: Telemetry/MedSurg (Inpatient)(07/08/22 20:53) cg Room Assignment: 230(07/08/22 20:53) cg Diagnosis - Acute respiratory failure rt - Unspecified bacterial pneumonia rt Discharge Instructions: - Discharge Summary Sheet iw Forms: - SBAR form iw - Medication Reconciliation Form rt Critical care time excluding procedures: 17:57 Critical care time: Bedside Care: 30 minutes, Consultation: 5 minutes. Total time: 35 rt minutes Signatures: Dispatcher [employer] EDAlbina Johnson RN RN dw Williams, Irene, RN RN iw Garcia, Cindy, RN RN cg Doucette, Kyli, RN RN [email or web address] Angie Wilson PA-C PA-C sb4 George Weems MD MD rt Corrections: (The following items were deleted from the chart) 19:15 18:50 rt dw 19:17 18:50 Telemetry/MedSurg (Inpatient) rt dw 19:17 19:15 211 dw dw 20:32 18:50 Kaiden Molina rt sb4 :53 19:17 BR ER HOLD dw cg :53 19:17 dw cg
--- NOTE | 2022-07-08 19:16 | P.HP ---
Certification for Inpatient Patient admitted to: Inpatient With expected LOS: >2 Midnights Patient will require the following post-hospital care: None Practitioner: I am a practitioner with admitting privileges, knowledge of patient current condition, hospital course, and medical plan of care. Services: Services provided to patient in accordance with Admission requirements found in Title 42 Section 412.3 of the Code of Federal Regulations Patient History Date of Service: 07/08/22 Reason for admission: Pneumonia History of Present Illness: Patient is a 76 year old male with COPD on home O2, HTN, HLD, and history of bladder cancer who presented to the emergency department with complaints of shortness of breath and fever for 2 days. He was in respiratory distress upon arrival and was immediately placed on BiPAP. ABG unremarkable. Lactate 2.4. No other significant lab abnormalities. COVID flu negative. Chest x-ray showed "Mild right lung base pneumonia superimposed on prominent COPD." He is meeting severe sepsis criteria without septic shock. He was given breathing treatment, solumedrol, and started on azithromycin and Rocephin. Patient has improved and is saturating appropriately on BiPAP. He is admitted for further management. Allergies No Known Allergies Allergy (Verified 06/12/21 14:38) Home medications list reviewed: Yes Home Medications: Amlodipine [Norvasc*] 5 mg PO DAILY 06/14/21 Fluticasone/Umeclidin/Vilanter [Trelegy Ellipta 100-62.5-25] 1 each IH DAILY 06/14/21 Rosuvastatin [Crestor*] 10 mg PO BEDTIME 06/14/21 Tamsulosin [Flomax] 0.4 mg PO BEDTIME 06/14/21 predniSONE [Prednisone*] 10 mg PO DAILY 06/14/21 Albuterol Neb [Proventil 0.083% Neb Soln] 2.5 mg NEB Q6HP PRN #60 amp 06/15/21 Fluticasone [Flonase 50MCG Nasal [place]*] 1 sprays GAIL DAILYPRN PRN 07/08/22 - Past Medical/Surgical History Diabetic: No -: COPD -: Bladder Cancer -: Hypertension -: BPH -: Hyperlipidemia -: tumor removed from bladder -: appendectomy -: cardiac cath - Family History Father -: Cancer Sister -: Heart disease, Lung disease - Social History Smoking Status: Former smoker Alcohol use: Yes CD- Drugs: No Caffeine use: Yes Place of Residence: Home Review of Systems General: Fever, Malaise Respiratory: Cough, Shortness of Breath Physical Examination - Vital Signs Temperature: 98.2 F Blood Pressure: 119/83 Pulse: 94 Respirations: 20 Pulse Ox (%): 98 (bipap) - Physical Exam General: Alert, Mild distress HEENT: Atraumatic, PERRLA, EOMI, Sclerae nonicteric Neck: Supple, 2+ carotid pulse no bruit Respiratory: Diminished, Expiratory wheezes Cardiovascular: Regular rate/rhythm, Normal S1 S2 Gastrointestinal: Normal bowel sounds, No tenderness Musculoskeletal: No tenderness Integumentary: No rashes Neurological: Normal speech, Normal strength at 5/5 x4 extr, Sensation intact - Studies Laboratory Data (last 24 hrs) 07/08/22 16:03: Sodium 134 L, Potassium 3.9, BUN 22 H, Creatinine 0.88, Glucose 123 H, Total Bilirubin 2.3 H, AST 19, ALT 30, Alkaline Phosphatase 86 07/08/22 16:03: WBC 10.80, Hgb 16.7, Hct 48.6, Plt Count 331 Assessment and Plan - Problems (Diagnosis) (1) Sepsis Current Visit: Yes Status: Acute Qualifiers: Sepsis type: sepsis due to unspecified organism Sepsis acute organ dysfunction status: with acute organ dysfunction Severe sepsis acute organ dysfunction type: acute respiratory failure Acute respiratory failure type: with hypoxia Severe sepsis shock status: without septic shock Qualified Code(s): A41.9 - Sepsis, unspecified organism; R65.20 - Severe sepsis without septic shock; J96.01 - Acute respiratory failure with hypoxia (2) Pneumonia Current Visit: Yes Status: Acute Qualifiers: Pneumonia type: due to unspecified organism Laterality: right Lung location: lower lobe of lung Qualified Code(s): J18.9 - Pneumonia, unspecified organism (3) Hypertension Current Visit: Yes Status: Chronic Qualifiers: Hypertension type: primary hypertension Qualified Code(s): I10 - Essential (primary) hypertension (4) COPD (chronic obstructive pulmonary disease) Current Visit: Yes Status: Chronic Qualifiers: COPD type: emphysema Emphysema type: unspecified Qualified Code(s): J43.9 - Emphysema, unspecified (5) Acute respiratory failure Current Visit: Yes Status: Acute Qualifiers: Respiratory failure complication: hypoxia Qualified Code(s): J96.01 - Acute respiratory failure with hypoxia (6) Hyperlipidemia Current Visit: Yes Status: Chronic Qualifiers: Hyperlipidemia type: mixed hyperlipidemia Qualified Code(s): E78.2 - Mixed hyperlipidemia - Plan Patient is admitted for further management of right lower lobe pneumonia. Initially meeting severe sepsis criteria with tachypnea, tachycardia, and lactate 2.4 Repeat 1.6. BP stable. Blood cultures obtained. Currently requiring bipap, wean to NC as tolerated. Patient wears 2L O2 NC at home. Continue IV steroids, rocephin, and azithromycin. Breathing treatments as needed. Incentive spirometry. Pulmonology consulted. Monitor and replete electrolytes per protocol. Reconcile and continue home medications. Lovenox for VTE prophylaxis Full code - Advance Directives Does patient have a Living Will: No Does patient have a Durable POA for Healthcare: No Physician Review: Patient Assessed, Agree with Above Assessment and Plan Critical Care: No Time Spent Managing Pts Care (In Minutes): 50
[2022-07-08] MEDS ORDERED: ONDANSETRON 4 MG/2 ML VIAL IV PRN (21:20)
[2022-07-08] MEDS ORDERED: ALBUTEROL 2.5 MG/3 ML NEB SOL NEB PRN (21:20)
[2022-07-08] MEDS ORDERED: ACETAMINOPHEN 500 MG TAB PO PRN (21:20)
[2022-07-08] MEDS ORDERED: IPRATROPIUM BROM 0.5MG/2.5ML NEB PRN (21:20)
[2022-07-08 21:39] VITALS: BMI 23.6
[2022-07-08] MEDS: NA CHLORIDE 0.9% 1,000 ML IV SCH (22:30)
[2022-07-09] MEDS ORDERED: METHYLPREDNISOLONE 40 MG INJ IV SCH (01:00)
[2022-07-09 04:57] LABS: Absolute Lymphocytes (CBC) 0.6 K/uL (0.7-4.9); Hematocrit 43.4 % (39.6-49.0); Lymphocytes % 9.5 % (15.3-44.8); MCV 89.3 fL (80-100); MPV 8.8 fL (7.6-11.3); RBC Red Blood Cell Count 4.86 M/uL (4.33-5.43)
[2022-07-09 05:34] LABS: Magnesium 2.3 mg/dL (1.6-2.4); Phosphorus 3.1 mg/dL (2.5-4.9); Thyroid Stimulating Hormone 0.463 uIU/mL (0.358-3.740)
--- NOTE | 2022-07-09 08:06 | P.CNS ---
Date of Consult: 07/09/22 Reason for Consult: Pneumonia Chief Complaint: Pneumonia History of Present Illness: Patient is 68 years of age with history of COPD hypertension very poor historian mated with worsening dyspnea respiratory distress found to have predominantly a right lower lobe infiltrate appears to be comfortable Allergies No Known Allergies Allergy (Verified 06/12/21 14:38) Home Medications: Amlodipine [Norvasc*] 5 mg PO DAILY 06/14/21 Fluticasone/Umeclidin/Vilanter [Trelegy Ellipta 100-62.5-25] 1 each IH DAILY 06/14/21 Rosuvastatin [Crestor*] 10 mg PO BEDTIME 06/14/21 Tamsulosin [Flomax] 0.4 mg PO BEDTIME 06/14/21 predniSONE [Prednisone*] 10 mg PO DAILY 06/14/21 Albuterol Neb [Proventil 0.083% Neb Soln] 2.5 mg NEB Q6HP PRN #60 amp 06/15/21 Fluticasone [Flonase 50MCG Nasal [place]*] 1 sprays GAIL DAILYPRN PRN 07/08/22 - Past Medical/Surgical History Diabetic: No -: COPD -: Bladder Cancer -: Hypertension -: BPH -: Hyperlipidemia -: tumor removed from bladder -: appendectomy -: cardiac cath - Family History Father Medical History: Cancer Sister Medical History: Heart disease, Lung disease - Social History Smoking Status: Unknown if ever smoked Alcohol use: Yes CD- Drugs: No Caffeine use: Yes Place of Residence: Home Review of Systems is unable to be obtained Physical Examination Temp Pulse Resp BP Pulse Ox 96.9 F 71 18 133/74 99 07/09/22 04:00 07/09/22 04:00 07/09/22 04:00 07/09/22 04:00 07/09/22 04:00 General: Alert, Oriented x1, Cooperative Respiratory: Crackles/rales (Right base) Cardiovascular: Regular rate/rhythm, Normal S1 S2, Edema Gastrointestinal: Normal bowel sounds, Soft and benign Laboratory Data (last 24 hrs) 07/08/22 16:03: Sodium 134 L, Potassium 3.9, BUN 22 H, Creatinine 0.88, Glucose 123 H, Total Bilirubin 2.3 H, AST 19, ALT 30, Alkaline Phosphatase 86 07/08/22 16:03: WBC 10.80, Hgb 16.7, Hct 48.6, Plt Count 331 - Problems (1) Pneumonia Current Visit: Yes Status: Acute Plan: Patient is 77 years of age with a history of COPD admitted with right lower lobe pneumonia blood gases reviewed oxygenation satisfactory his condition is stable possible discharge on levofloxacin patient does take prednisone at home he also has a bronchodilator Qualifiers: Pneumonia type: due to unspecified organism Laterality: right Lung location: lower lobe of lung Qualified Code(s): J18.9 - Pneumonia, unspecified organism
[2022-07-09] MEDS: NA CHLORIDE 0.9% 1,000 ML IV SCH ×2 (09:47→18:30)
[2022-07-09] MEDS: ENOXAPARIN 40 MG/0.4 ML SQ SCH (09:47)
[2022-07-09] MEDS: Levofloxacin 750mg IV 750 MG/150 ML BAG IV SCH (09:48)
[2022-07-09] MEDS: predniSONE 20 MG TAB PO SCH ×2 (09:48→20:17)
[2022-07-09] MEDS: IPRATROPIUM BROM 0.5MG/2.5ML NEB SCH ×2 (14:26→20:00)
[2022-07-09] MEDS ORDERED: AZITHROMYCIN IV 500 MG in NA CHLORIDE 0.9% 250 ML IVPB SCH (16:00)
[2022-07-09] MEDS ORDERED: CEFTRIAXONE 1,000 MG in NA CHLORIDE 0.9% 50 ML IVPB SCH (16:00)
--- NOTE | 2022-07-09 17:45 | EKG ---
Test Date: 2022-07-08 Test Time: 15:49:15 Leak Detector: RADHA MEASUREMENT RESULTS: Intervals: Rate: 140 WI: 146 QRSD: 78 QT: 268 QTc: 409 [place]: P: 76 WI: 146 QRS: 65 T: 78 INTERPRETIVE STATEMENTS: Sinus tachycardia Indeterminate axis Septal infarct, age undetermined Abnormal ECG Compared to ECG 07/09/2021 12:51:54 Indeterminate axis now present Myocardial infarct finding now present Sinus rhythm no longer present First degree AV block no longer present Right superior axis no longer present Electronically Signed On 07-09-22 17:43:32 HIDE COOKING OPERATOR by Stan Colón
[2022-07-09] MEDS: ROSUVASTATIN 10 MG TAB PO SCH (20:55)
[2022-07-09] MEDS: TAMSULOSIN 0.4 MG SR CAP PO SCH (20:56)
[2022-07-10] MEDS: IPRATROPIUM BROM 0.5MG/2.5ML NEB SCH ×4 (01:30→20:20)
[2022-07-10] MEDS: AMLODIPINE 5 MG TAB PO SCH ×2 (05:47→09:25)
--- NOTE | 2022-07-10 05:51 | P.PN ---
Subjective Date of Service: 07/09/22 Subjective: No new changes, No C/O voiced, Improving Review of Systems 10-point ROS is otherwise unremarkable Physical Examination - Vital Signs Temperature: 98.2 F Blood Pressure: 150/78 Pulse: 89 Respirations: 17 Pulse Ox (%): 97 - Physical Exam General: Alert, In no apparent distress, Oriented x3 Respiratory: Diminished, Expiratory wheezes Cardiovascular: Regular rate/rhythm, Normal S1 S2, No murmurs Gastrointestinal: Normal bowel sounds, Soft and benign, Non-distended, No tenderness, No rebound, No guarding Musculoskeletal: No clubbing, No swelling, No tenderness Neurological: Normal strength at 5/5 x4 extr, Sensation intact, Cranial nerves 3-12 intact - Studies Medications List Reviewed: Yes Assessment & Plan - Problems (Diagnosis) (1) Acute respiratory failure Current Visit: Yes Status: Acute Qualifiers: Respiratory failure complication: hypoxia Qualified Code(s): J96.01 - Acute respiratory failure with hypoxia (2) COPD (chronic obstructive pulmonary disease) Current Visit: Yes Status: Chronic Qualifiers: COPD type: emphysema Emphysema type: unspecified Qualified Code(s): J43.9 - Emphysema, unspecified (3) Hyperlipidemia Current Visit: Yes Status: Chronic Qualifiers: Hyperlipidemia type: mixed hyperlipidemia Qualified Code(s): E78.2 - Mixed hyperlipidemia (4) Hypertension Current Visit: Yes Status: Chronic Qualifiers: Hypertension type: primary hypertension Qualified Code(s): I10 - Essential (primary) hypertension (5) Acute and chronic respiratory failure with hypoxia Current Visit: No Status: Acute (6) Benign prostatic hyperplasia Onset Date: 08/02/17 Current Visit: No Status: Acute (7) Hypoxia Onset Date: 08/02/17 Current Visit: No Status: Acute (8) Sleep apnea Onset Date: 08/02/17 Current Visit: No Status: Acute Qualifiers: Sleep apnea type: unspecified type Qualified Code(s): G47.30 - Sleep apnea, unspecified (9) Essential hypertension Onset Date: 08/02/17 Current Visit: No Status: Chronic - Plan 1. Continue with IV antibiotics 2. Awaiting sputum and blood culture 3. Repeat chest x-ray 4. Will proceed with CT scan of the chest if pneumonia is not improved 5. Wean off NIV/bipap support 6. Continue with nebs as needed 7. O2 per protocol 8. Heplock IV 9. Repeat labs 10. GI and DVT prophylaxis Discharge Plan: Home Plan to discharge in: Greater than 2 days - Advance Directives Does patient have a Living Will: No Does patient have a Durable POA for Healthcare: No - Code Status/Comfort Care Code Status Assessed: Yes Code Status: Full Code Physician Review: Patient Assessed, Agree with Above Assessment and Plan Critical Care: No Time Spent Managing PTS Care (In Minutes): 35
--- NOTE | 2022-07-10 05:52 | P.PN ---
Date of Service: 07/10/22 Subjective Subjective: Review of Systems 10-point ROS is otherwise unremarkable Physical Examination - Vital Signs reviewed - Physical Exam General: Alert, In no apparent distress, Oriented x3 Respiratory: Diminished, Expiratory wheezes Cardiovascular: Regular rate/rhythm, Normal S1 S2, No murmurs Gastrointestinal: Normal bowel sounds, Soft and benign, Non-distended, No tenderness, No rebound, No guarding Musculoskeletal: No clubbing, No swelling, No tenderness Neurological: Normal strength at 5/5 x4 extr, Sensation intact, Cranial nerves 3-12 intact Assessment & Plan - Problems (Diagnosis) (1) Acute respiratory failure Current Visit: Yes Status: Acute Qualifiers: Respiratory failure complication: hypoxia Qualified Code(s): J96.01 - Acute respiratory failure with hypoxia (2) COPD (chronic obstructive pulmonary disease) Current Visit: Yes Status: Chronic Qualifiers: COPD type: emphysema Emphysema type: unspecified Qualified Code(s): J43.9 - Emphysema, unspecified (3) Hyperlipidemia Current Visit: Yes Status: Chronic Qualifiers: Hyperlipidemia type: mixed hyperlipidemia Qualified Code(s): E78.2 - Mixed hyperlipidemia (4) Hypertension Current Visit: Yes Status: Chronic Qualifiers: Hypertension type: primary hypertension Qualified Code(s): I10 - Essential (primary) hypertension (5) Acute and chronic respiratory failure with hypoxia Current Visit: No Status: Acute (6) Benign prostatic hyperplasia Onset Date: 08/02/17 Current Visit: No Status: Acute (7) Hypoxia Onset Date: 08/02/17 Current Visit: No Status: Acute (8) Sleep apnea Onset Date: 08/02/17 Current Visit: No Status: Acute Qualifiers: Sleep apnea type: unspecified type Qualified Code(s): G47.30 - Sleep apnea, unspecified (9) Essential hypertension Onset Date: 08/02/17 Current Visit: No Status: Chronic - Plan 1. Continue with IV antibiotics 2. Awaiting sputum and blood culture 3. Repeat chest x-ray 4. Will proceed with CT scan of the chest if pneumonia is not improved 5. Wean off NIV/bipap support 6. Continue with nebs as needed 7. O2 per protocol 8. Heplock IV 9. Repeat labs 10. GI and DVT prophylaxis
[2022-07-10 06:02] LABS: Absolute Lymphocytes (CBC) 0.6 K/uL (0.7-4.9); Hematocrit 37.3 % (39.6-49.0); MCV 89.5 fL (80-100); MPV 8.1 fL (7.6-11.3); RBC Red Blood Cell Count 4.16 M/uL (4.33-5.43)
[2022-07-10 06:16] LABS: Potassium 4.1 mmol/L (3.5-5.1)
[2022-07-10] MEDS ORDERED: ALPRAZOLAM 0.5 MG TABLET PO PRN (09:01)
[2022-07-10] MEDS: Levofloxacin 750mg IV 750 MG/150 ML BAG IV SCH (09:24)
[2022-07-10] MEDS: ENOXAPARIN 40 MG/0.4 ML SQ SCH (09:24)
[2022-07-10] MEDS: predniSONE 20 MG TAB PO SCH ×2 (09:25→21:26)
[2022-07-10] MEDS: NA CHLORIDE 0.9% 1,000 ML IV SCH ×2 (13:20→22:54)
[2022-07-10] MEDS: ROSUVASTATIN 10 MG TAB PO SCH (21:26)
[2022-07-10] MEDS: TAMSULOSIN 0.4 MG SR CAP PO SCH (21:26)
[2022-07-11] MEDS: IPRATROPIUM BROM 0.5MG/2.5ML NEB SCH ×2 (02:05→08:45)
[2022-07-11] MEDS ORDERED: HYDRALAZINE HCL 20 MG/ML VIAL IV PRN (04:11)
[2022-07-11] MEDS ORDERED: FUROSEMIDE 40 MG/4 ML VIAL IV ONE (05:54)
[2022-07-11] MEDS ORDERED: METOPROLOL TAR 25 MG TAB PO SCH (06:00)
[2022-07-11] MEDS: AMLODIPINE 5 MG TAB PO SCH (07:57)
[2022-07-11] MEDS: predniSONE 20 MG TAB PO SCH (07:57)
[2022-07-11] MEDS: Levofloxacin 750mg IV 750 MG/150 ML BAG IV SCH (07:57)
[2022-07-11] MEDS: ENOXAPARIN 40 MG/0.4 ML SQ SCH (08:01)
[2022-07-11 08:20] VITALS: BP 152/74; TEMP 97.3
[2022-07-11 13:21] VITALS: O2SAT 96
== END 2022-07-11 10:36 | disposition home or self-care (01) | DRG 871 ==
LOC: ER 15:32 → ERHOLD 19:09 → 2ND 21:36
PROVIDERS: ADMIT Hospitalist; ATTEND Internal Medicine Sleep Medicine
DX: A41.9 Sepsis, unspecified organism (principal); J18.9 Pneumonia, unspecified organism; J96.21 Acute and chronic respiratory failure with hypoxia; J43.9 Emphysema, unspecified; R65.20 Severe sepsis without septic shock; E78.2 Mixed hyperlipidemia; I10 Essential (primary) hypertension; G47.30 Sleep apnea, unspecified; N40.0 Benign prostatic hyperplasia without lower urinary tract symptoms; Z99.81 Dependence on supplemental oxygen; Z20.822 Contact with and (suspected) exposure to COVID-19; Z85.51 Personal history of malignant neoplasm of bladder
CPT/HCPCS: 0240U; 36415; 71045; 80048; 80053; 80061; 82805; 83605; 83735; 83880; 84100; 84443; 84484; 85025; 87040; 93005; 94010; 94640; 94660; 94760; 96374; 96375; 99285; J0360; J0456; J0696; J1650; J1940; J2920; J7030; J7050; J7512; J7613; J7644

== ENCOUNTER 2022-12-02 07:51 | Day surgery (SDC) | payer OTHER, BC ==
[2022-12-02] MEDS ORDERED: Ringers Lactate 1,000 ML IV ONE (08:19)
[2022-12-02] MEDS ORDERED: propofoL 200 MG/20 ML VIAL IV ONE ×2 (10:25→10:41)
[2022-12-02] MEDS ORDERED: LIDOCAINE 1% MPF 5 ML VIAL ONE (10:25)
[2022-12-02 11:37] VITALS: TEMP 98.3; O2SAT 94
[2022-12-02 11:38] VITALS: BP 153/77
== END 2022-12-02 11:34 | disposition home or self-care (01) ==
LOC: OR 07:51
PROVIDERS: ATTEND Internal Medicine Gastroenterology
PROC: 0DBN8ZX Excision of Sigmoid Colon, Via Natural or Artificial Opening Endoscopic, Diagnostic (ICD-10-PCS; 2022-12-02)
PROC: 0DBM8ZX Excision of Descending Colon, Via Natural or Artificial Opening Endoscopic, Diagnostic (ICD-10-PCS; 2022-12-02)
PROC: 0DBH8ZX Excision of Cecum, Via Natural or Artificial Opening Endoscopic, Diagnostic (ICD-10-PCS; 2022-12-02)
PROC: 0DBK8ZX Excision of Ascending Colon, Via Natural or Artificial Opening Endoscopic, Diagnostic (ICD-10-PCS; principal; 2022-12-02 09:45)
DX: Z12.11 Encounter for screening for malignant neoplasm of colon (principal); K64.8 Other hemorrhoids; K57.30 Diverticulosis of large intestine without perforation or abscess without bleeding; D12.0 Benign neoplasm of cecum; D12.4 Benign neoplasm of descending colon; D12.5 Benign neoplasm of sigmoid colon
CPT/HCPCS: 45385; 88305; J2704 ×2; J2001; J7120